=== PATIENT | male | born 1960 | race Two or more races ===

== ENCOUNTER 2019-09-08 19:12 | Inpatient (IN) | payer MEDICAID ==
[~2019-09-08] VITALS: Ht 172.7 cm; Wt 68.0 kg
[2019-09-08 19:15] VITALS: BP 144/86
--- NOTE | 2019-09-08 19:26 | Emergency Room Report ---
History of Present Illness General Chief Complaint: Generalized Weakness Source: Patient, EMS Present Illness HPI Patient is a 59-year-old male brought in by EMS after increased difficulty with balance as well as increased confusion. Patient a prior history of cirrhosis. He had reportedly been taking lactulose. Also had prior history of diabetes as well as liver cancer. He states he has not been having bowel movement today. Reports having some bilateral abdominal pain. Previous reportedly had positive coronavirus infection approximately 1 month ago. 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 COVID-19 Screening: Positive COVID-19 COVID-19 Testing Source: NET MAKER Patient History Reviewed Nursing Documentation: PMH: Agreed; PSxH: Agreed Review of Systems All Other Systems: negative except mentioned in HPI Physical Exam Vital Signs Date Time Temp Pulse Resp B/P (MAP) Pulse Ox O2 Delivery O2 Flow Rate FiO2 09/08/19 19:04 98.1 65 19 144/86 (105) 98 Room Air Sp02 EP Interpretation: reviewed, normal General Appearance: normal inspection, well appearing, no apparent distress, alert, GCS 15, Chronically Ill Head: atraumatic ENT: normal ENT inspection, hearing grossly normal, normal voice Neck: normal inspection, full range of motion, supple, no bony tend Respiratory: normal inspection, lungs clear, normal breath sounds, no respiratory distress, no retraction, no wheezing Cardiovascular #1: regular rate, rhythm, no edema Gastrointestinal: normal inspection, normal bowel sounds, non tender, soft, no guarding, no hernia Genitourinary: no CVA tenderness Musculoskeletal: normal inspection, back normal, normal range of motion Neurologic: alert, oriented x3, responsive, speech normal, normal inspection Psychiatric: normal inspection, judgement/insight normal, mood/affect normal Medical Decision Making Diagnostic Impression: Primary Impression: Hepatic encephalopathy Additional Impression: Hyperglycemia ER Course Presented for altered mental status. Differential diagnosis include was not limited to hepatic encephalopathy, CVA, urinary tract infection, intracranial hemorrhage among others. Because of complexity of patient's case laboratory tests and imaging studies were ordered. Patient was noted to have recent fall and had prior history of hepatic encephalopathy. CT imaging of the head read by radiology showed no evidence of acute intracranial hemorrhage. Per patient' s patient was more confused than baseline. He reportedly had been compliant with his lactulose. Laboratory testing did show some market elevation of the patient's ammonia.Dr. Gordo Mcduffie was contacted for inpatient management due to panel physician. Laboratory Tests Test 09/08/19 19:30 White Blood Count 6.5 K/UL (4.8-10.8) Red Blood Count 4.09 M/UL (4.70-6.10) L Hemoglobin 11.8 G/DL (14.2-18.0) L Hematocrit 36.7 % (42.0-52.0) L Mean Corpuscular Volume 90 FL (80-99) Mean Corpuscular Hemoglobin 28.7 PG (27.0-31.0) Mean Corpuscular Hemoglobin Concent 32.1 G/DL (32.0-36.0) Red Cell Distribution Width 14.2 % (11.6-14.8) Platelet Count 93 K/UL (150-450) L Mean Platelet Volume 11.4 FL (6.5-10.1) H Neutrophils (%) (Auto) % (45.0-75.0) Lymphocytes (%) (Auto) % (20.0-45.0) Monocytes (%) (Auto) % (1.0-10.0) Eosinophils (%) (Auto) % (0.0-3.0) Basophils (%) (Auto) % (0.0-2.0) Differential Total Cells Counted 100 Neutrophils % (Manual) 87 % (45-75) H Lymphocytes % (Manual) 8 % (20-45) L Monocytes % (Manual) 4 % (1-10) Eosinophils % (Manual) 0 % (0-3) Basophils % (Manual) 0 % (0-2) Band Neutrophils 1 % (0-8) Platelet Estimate Decreased L Platelet Morphology Normal Red Blood Cell Morphology Normal Prothrombin Time 13.3 SEC (9.30-11.50) H Prothrombin Time INR 1.2 (0.9-1.1) H Activated Partial Thromboplast Time 26 SEC (23-33) Urine Color Pale yellow Urine Appearance Clear Urine pH 6.5 (4.5-8.0) Urine Specific [place] 1.010 (1.005-1.035) Urine Protein Negative (NEGATIVE) Urine Glucose (UA) 4+ (NEGATIVE) H Urine Ketones Negative (NEGATIVE) Urine Blood Negative (NEGATIVE) Urine Nitrite Negative (NEGATIVE) Urine Bilirubin Negative (NEGATIVE) Urine Urobilinogen Normal MG/DL (0.0-1.0) Urine Leukocyte Esterase 2+ (NEGATIVE) H Urine RBC 0 /HPF (0 - 0) Urine WBC 5-10 /HPF (0 - 0) H Urine Squamous Epithelial Cells Occasional /LPF Urine Bacteria None /HPF (NONE) Sodium Level 131 MMOL/L (136-145) L Potassium Level 5.1 MMOL/L (3.5-5.1) Chloride Level 97 MMOL/L (98-107) L Carbon Dioxide Level 27 MMOL/L (21-32) Anion Gap 7 mmol/L (5-15) Blood Urea Nitrogen 39 mg/dL (7-18) H Creatinine 2.4 MG/DL (0.55-1.30) H Estimated Glomerular Filtration Rate 28.0 mL/min (>60) Glucose Level 518 MG/DL (74-106) *H Calcium Level 8.9 MG/DL (8.5-10.1) Total Bilirubin 1.1 MG/DL (0.2-1.0) H Direct Bilirubin 0.6 MG/DL (0.0-0.3) H Aspartate Amino Transferase (AST) 47 U/L (15-37) H Alanine Aminotransferase (ALT) 65 U/L (12-78) Alkaline Phosphatase 335 U/L (46-116) H Ammonia 125 umol/L (11-32) H Troponin I 0.002 ng/mL (0.000-0.056) Total Protein 7.9 G/DL (6.4-8.2) Albumin 3.0 G/DL (3.4-5.0) L Globulin 4.9 g/dL Albumin/Globulin Ratio 0.6 (1.0-2.7) L Thyroid Stimulating Hormone (TSH) 1.235 uiU/mL (0.358-3.740) Last Vital Signs Date Time Temp Pulse Resp B/P (MAP) Pulse Ox O2 Delivery O2 Flow Rate FiO2 09/08/19 19:04 98.1 65 19 144/86 (105) 98 Room Air Status: improved Disposition: ADMITTED INPATIENT Condition: Stable Aiden Shaver MD September 08, 2019 19:26
[2019-09-08 19:57] LABS: HEMATOCRIT 36.7 % (42.0-52.0); HEMOGLOBIN 11.8 G/DL (14.2-18.0); MEAN CORPUSCULAR VOLUME 90 FL (80-99); PLATELET COUNT 93 K/UL (150-450); RED BLOOD COUNT 4.09 M/UL (4.70-6.10); RED CELL DISTRIBUTION WIDTH 14.2 % (11.6-14.8); WHITE BLOOD COUNT 6.5 K/UL (4.8-10.8)
[2019-09-08 19:59] LABS: APPEARANCE,URINE CLEAR; BILIRUBIN, URINE NEGATIVE (NEGATIVE); COLOR,URINE PALE YELLOW; GLUCOSE, URINE (UA) 4+ (NEGATIVE); KETONES,URINE NEGATIVE (NEGATIVE); LEUKOCYTE ESTERASE ,URINE 2+ (NEGATIVE); NITRITE,URINE NEGATIVE (NEGATIVE); PH,URINE 6.5 (4.5-8.0); PROTEIN,URINE NEGATIVE (NEGATIVE); UROBILINOGEN,URINE NORMAL MG/DL (0.0-1.0)
--- NOTE | 2019-09-08 20:01 | Diagnostic Imaging Report ---
EXAM: XR Chest, 1 View CLINICAL HISTORY: SOB TECHNIQUE: Frontal view of the chest. COMPARISON: No relevant prior studies available. FINDINGS: Lungs: Unremarkable. No consolidation. Pleural space: Unremarkable. No pneumothorax. Heart: Unremarkable. No cardiomegaly. Mediastinum: Unremarkable. Bones/joints: Unremarkable. IMPRESSION: 1. No acute cardiopulmonary disease. 2. If there is continued concern recommend frontal and lateral chest radiographs or CT.
[2019-09-08 20:11] LABS: INR 1.2 (0.9-1.1)
--- NOTE | 2019-09-08 20:24 | Diagnostic Imaging Report ---
EXAM: CT Head Without Intravenous Contrast CLINICAL HISTORY: DIZZY TECHNIQUE: Axial computed tomography images of the head/brain without intravenous contrast. CTDI is 53 mGy and DLP is 992 mGy-cm. One or more of the following dose reduction techniques were used: automated exposure control, adjustment of the mA and/or kV according to patient size, use of iterative reconstruction technique. COMPARISON: No relevant prior studies available. FINDINGS: Brain: Small area of right temporal lobe probable encephalomalacia 2.5 x 2.4 x 1.3 cm, if there is not a known history of right temporal lobe prior infarcts recommend MRI brain without and with IV contrast to further characterize this finding. Mild cerebrovascular ASVD. No hemorrhage. Ventricles: Unremarkable. No ventriculomegaly. Bones/joints: See below. Soft tissues: Unremarkable. Vasculature: Mild cerebrovascular atherosclerosis. Sinuses: Left maxillary sinus probable mass demonstrating focal hyperdense portion potentially representing an osseous excrescence with complete opacification, bony sclerosis and thickening, area of incompletely seen left posterolateral bony breakthrough axial series 7 image 1. Widening of the ostiomeatal unit. Mastoid air cells: Unremarkable as visualized. No mastoid effusion. IMPRESSION: 1. No acute intracranial abnormality. 2. Small area of right temporal lobe probable encephalomalacia 2.5 x 2.4 x 1.3 cm, if there is not a known history of right temporal lobe prior infarcts recommend MRI brain without and with IV contrast to further characterize this finding. 3. Left maxillary sinus likely mass which could represent a benign process such as inverting papilloma, although neoplasm is not excluded. 4. Recommend ENT consultation and consider dedicated sinus CT to further characterize these findings.
[2019-09-08 20:25] LABS: ALANINE AMINOTRANSFERASE 65 U/L (12-78); ALBUMIN/GLOBULIN RATIO 0.6 (1.0-2.7); ALKALINE PHOSPHATASE 335 U/L (46-116); ANION GAP 7 mmol/L (5-15); ASPARTATE AMINO TRANSFERASE 47 U/L (15-37); BILIRUBIN,TOTAL 1.1 MG/DL (0.2-1.0); BLOOD UREA NITROGEN 39 mg/dL (7-18); CALCIUM 8.9 MG/DL (8.5-10.1); CARBON DIOXIDE 27 MMOL/L (21-32); CHLORIDE 97 MMOL/L (98-107); CREATININE 2.4 MG/DL (0.55-1.30); POTASSIUM 5.1 MMOL/L (3.5-5.1); SODIUM 131 MMOL/L (136-145)
[2019-09-08] MEDS ORDERED: Insulin Human Regular 100units/ml 3ml SUBQ ONE (20:30)
[2019-09-08 20:34] LABS: BILIRUBIN,DIRECT 0.6 MG/DL (0.0-0.3)
[2019-09-08] MEDS ORDERED: Lactulose 20gm/30ml UDC ORAL ONE (21:00)
[2019-09-08] MEDS ORDERED: FLOMAX0.4 MG ORAL (21:20)
[2019-09-08] MEDS ORDERED: PANTOPRAZOLE SO40 MG ORAL (21:20)
[2019-09-08] MEDS ORDERED: FUROSEMIDE20 M1 ORAL (21:20)
[2019-09-08] MEDS ORDERED: XIFAXAN550 MG ORAL (21:20)
[2019-09-08] MEDS ORDERED: SPIRONOLACTONE25 MG ORAL (21:20)
[2019-09-08] MEDS ORDERED: NEXAVAR200 MG ORAL (21:20)
[2019-09-08] MEDS ORDERED: TRAZODONE HCL150 MG ORAL (21:20)
[2019-09-08] MEDS: Lactulose 20gm/30ml UDC ORAL SCH (23:46)
[2019-09-09] VITALS: BP 132/77
[2019-09-09 04:00] VITALS: BP 123/77
[2019-09-09] MEDS: NovoLOG Insulin Flexpen SUBQ SCH ×4 (06:18→21:13)
[2019-09-09 08:00] VITALS: BP 106/67
--- NOTE | 2019-09-09 08:30 | History and Physical Report ---
DATE OF ADMISSION: 09/08/2019 CHIEF COMPLAINT: Hepatic encephalopathy. HISTORY OF PRESENT ILLNESS: The patient is a 59-year-old male. He has a history of cirrhosis and diabetes as well as liver cancer, who presented with complaints of generalized malaise and weakness. He apparently was COVID positive approximately a month ago, but has otherwise been asymptomatic. Denies any fevers, chills, or cough. He has been on lactulose for hepatic encephalopathy. He has been compliant with medications. On evaluation in the emergency room, vital signs were stable. His ammonia level is 125. His blood glucose is 518. He is now admitted for further evaluation and care. PAST MEDICAL HISTORY: As above. PAST SURGICAL HISTORY: Includes back surgery. CURRENT MEDICATIONS: Reconciled and reviewed. ALLERGIES: None. FAMILY HISTORY: None. SOCIAL HISTORY: Negative for tobacco, ethanol, or drugs. REVIEW OF SYSTEMS: Negative except for malaise. PHYSICAL EXAMINATION: VITAL SIGNS: Temperature 98 degrees, pulse 67, respirations 18, and blood pressure . GENERAL: The patient well-developed, no apparent distress. HEART: Regular. LUNGS: Clear. ABDOMEN: Soft, nontender, nondistended. There is no ascites noted. The patient is obese. EXTREMITIES: Without clubbing or cyanosis. LABORATORY DATA: Sodium 131, potassium 5.1, BUN 39, creatinine 2.4, glucose 518. Total bilirubin of 1.1. Ammonia 125. UA showed 5 to 10 wbc's. ASSESSMENT: This is a 59-year-old male, admitted with complaints of altered mental status, generalized malaise and weakness secondary to acute renal failure as well as hepatic encephalopathy. PLAN: IV hydration. Lactulose three times a day. Monitor ammonia level. Monitor renal function. PT/OT evaluations will be obtained. Gordo Mcduffie M.D. DR: JORDAN JOB#: [id number] CC:
[2019-09-09] MEDS: Lactulose 20gm/30ml UDC ORAL SCH ×3 (08:37→17:04)
[2019-09-09] MEDS: Spironolactone 25mg tab ORAL SCH (08:37)
[2019-09-09] MEDS: NEXAVAR 200 MG ORAL SCH ×2 (08:39→17:04)
[2019-09-09] MEDS ORDERED: Pantoprazole Inj IVP SCH (09:00)
[2019-09-09] MEDS ORDERED: Tamsulosin 0.4mg cap ORAL SCH ×2 (09:00→11:45)
--- NOTE | 2019-09-09 11:43 | Consultation ---
Consult Note Consult Note Asked to evaluate at the request of Dr. Mcduffie for renal failure Patient is a 59-year-old male brought in by EMS after increased difficulty with balance as well as increased confusion. Patient a prior history of cirrhosis. He had reportedly been taking lactulose. Also had prior history of diabetes as well as liver cancer. He states he has not been having bowel movement today. Reports having some bilateral abdominal pain. Previous reportedly had positive coronavirus infection approximately 1 month ago. 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 Assessment/Plan Reviewing the patient medication list he is on Nexavar which is a chemotherapy medication. At this point I am unclear what type of cancer is he being treated for This 59-year-old male is being admitted with encephalopathy(toxic metabolic) and generalized weakness Acute renal failure with possible underlying chronic kidney disease Hyperglycemia Hyponatremia partly related to hyperglycemia Anemia History of back surgery Suggestions: Urine studies, and urine for tox screen Kidney ultrasound Flomax twice daily Hydration and watch for CHF symptoms Avoid nephrotoxic's Monitor renal parameters Monitor liver function tests and ammonia level Urine for tox screen I spent an additional 35 minutes on review of medical records including prior hospital records ,consult notes ,progress notes ,procedures ,imaging ,labs , hemodynamics ,and other clinical documentations Kali Carrero MD September 09, 2019 11:43
[2019-09-09 12:05] VITALS: BP 118/69
[2019-09-09] MEDS: Docusate 100mg cap ORAL SCH ×2 (12:16→17:04)
[2019-09-09 16:08] VITALS: BP 110/71
[2019-09-09] MEDS: Tamsulosin 0.4mg cap ORAL SCH (17:04)
[2019-09-09] MEDS: Nateglinide 60mg tab ORAL SCH (17:05)
[2019-09-09 20:00] VITALS: BP 139/77
[2019-09-09] MEDS: TraZODone 50mg tab ORAL SCH (21:01)
[2019-09-10] VITALS: BP 134/75
[2019-09-10] MEDS: NovoLOG Insulin Flexpen SUBQ SCH ×6 (01:02→21:02)
[2019-09-10 04:00] VITALS: BP 106/66
[2019-09-10] MEDS: Nateglinide 60mg tab ORAL SCH ×3 (06:10→18:11)
[2019-09-10 06:32] LABS: HEMATOCRIT 30.7 % (42.0-52.0); HEMOGLOBIN 10.8 G/DL (14.2-18.0); MEAN CORPUSCULAR VOLUME 84 FL (80-99); PLATELET COUNT 85 K/UL (150-450); RED BLOOD COUNT 3.66 M/UL (4.70-6.10); RED CELL DISTRIBUTION WIDTH 12.5 % (11.6-14.8); WHITE BLOOD COUNT 5.2 K/UL (4.8-10.8)
[2019-09-10 07:11] LABS: AMMONIA 69 umol/L (11-32)
[2019-09-10 07:18] LABS: % IRON SATURATION 18 % (15-50); IRON 54 ug/dL (50-175); TOTAL IRON BINDING CAPACITY 297 ug/dL (250-450)
[2019-09-10 07:22] LABS: ALANINE AMINOTRANSFERASE 43 U/L (12-78); ALBUMIN 2.6 G/DL (3.4-5.0); ALBUMIN/GLOBULIN RATIO 0.6 (1.0-2.7); ALKALINE PHOSPHATASE 269 U/L (46-116); ANION GAP 9 mmol/L (5-15); ASPARTATE AMINO TRANSFERASE 34 U/L (15-37); BLOOD UREA NITROGEN 21 mg/dL (7-18); CALCIUM 8.2 MG/DL (8.5-10.1); CARBON DIOXIDE 23 MMOL/L (21-32); CHLORIDE 105 MMOL/L (98-107); CHOLESTEROL 133 MG/DL (< 200); CREATININE 1.7 MG/DL (0.55-1.30); FERRITIN 32 NG/ML (8-388); GAMMA GLUTAMYL TRANSPEPTIDASE 883 U/L (5-85); HDL CHOLESTEROL 20 MG/DL (40-60); PHOSPHORUS 2.8 MG/DL (2.5-4.9); POTASSIUM 4.5 MMOL/L (3.5-5.1); SODIUM 137 MMOL/L (136-145); TRIGLYCERIDES 301 MG/DL (30-150)
[2019-09-10 08:00] VITALS: BP 106/75
--- NOTE | 2019-09-10 08:19 | General Progress Note ---
Assessment/Plan Problem List: (1) Hepatic encephalopathy ICD Codes: K72.90 - Hepatic failure, unspecified without coma SNOMED: 04080978 (2) Hyperglycemia ICD Codes: R73.9 - Hyperglycemia, unspecified SNOMED: 99795335 Status: stable Assessment/Plan: cont current resume diabetes rx- pt doesnt remember lactulose dc planning tomorrow Subjective ROS Limited/Unobtainable: No Constitutional: Reports: weakness HEENT: Reports: no symptoms Cardiovascular: Reports: no symptoms Respiratory: Reports: no symptoms Gastrointestinal/Abdominal: Reports: no symptoms Genitourinary: Reports: no symptoms Neurologic/Psychiatric: Reports: no symptoms Endocrine: Reports: no symptoms Hematologic/Lymphatic: Reports: no symptoms Allergies: Coded Allergies: No Known Allergies (Unverified , 09/08/19) All Systems: reviewed and negative except above Subjective feel better. ammonia trending down. on lactulose. no cp/sob Objective Last 24 Hour Vital Signs Date Time Temp Pulse Resp B/P (MAP) Pulse Ox O2 Delivery O2 Flow Rate FiO2 09/10/19 04:00 98.1 73 22 106/66 (79) 98 09/10/19 00:00 99.0 80 22 134/75 (94) 97 09/09/19 21:00 Room Air 09/09/19 20:00 98.6 80 19 139/77 (97) 97 09/09/19 16:08 98.1 73 19 110/71 (84) 98 09/09/19 12:05 98.4 79 18 118/69 (85) 97 09/09/19 09:00 Room Air Intake and Output 09/09/19 09/10/19 19:00 07:00 Intake Total 2425 ml 1200 ml Output Total 500 ml Balance 2425 ml 700 ml Intake IV Total 825 ml 450 ml Other 1600 ml 750 ml Output Urine Total 500 ml # Voids 2 # Bowel Movements 1 Laboratory Tests 09/09/19 23:15: Urine Opiates Screen Negative, Urine Barbiturates Screen Negative, Phencyclidine (PCP) Screen Negative, Urine Amphetamines Screen Negative, Urine Benzodiazepines Screen Negative, Urine Cocaine Screen Negative, Urine Marijuana (THC) Screen Negative 09/10/19 05:20: White Blood Count 5.2, Red Blood Count 3.66L, Hemoglobin 10.8L, Hematocrit 30.7L , Mean Corpuscular Volume 84, Mean Corpuscular Hemoglobin 29.3, Mean Corpuscular Hemoglobin Concent 35.0, Red Cell Distribution Width 12.5, Platelet Count 85L, Mean Platelet Volume 8.9, Neutrophils (%) (Auto) , Lymphocytes (%) ( Auto) , Monocytes (%) (Auto) , Eosinophils (%) (Auto) , Basophils (%) (Auto) , Neutrophils % (Manual) [Pending], Lymphocytes % (Manual) [Pending], Platelet Estimate [Pending], Platelet Morphology [Pending], Sodium Level 137, Potassium Level 4.5, Chloride Level 105, Carbon Dioxide Level 23, Anion Gap 9, Blood Urea Nitrogen 21H, Creatinine 1.7H, Estimat Glomerular Filtration Rate 41.8, Glucose Level 239#H, Hemoglobin A1c 13.5H, Lactic Acid Level [Pending], Uric Acid 7.0, Calcium Level 8.2L, Phosphorus Level 2.8, Magnesium Level 1.5L, Iron Level 54, Total Iron Binding Capacity 297, Percent Iron Saturation 18, Unsaturated Iron Binding 243, Ferritin 32, Total Bilirubin 1.0, Gamma Glutamyl Transpeptidase 883H, Aspartate Amino Transf (AST/SGOT) 34, Alanine Aminotransferase (ALT/SGPT) 43, Alkaline Phosphatase 269H, Ammonia 69H, Troponin I 0.005, C-Reactive Protein , Quantitative 0.9, Pro-B-Type Natriuretic Peptide 542H, Total Protein 6.9, Albumin 2.6L, Globulin 4.3, Albumin/Globulin Ratio 0.6L, Triglycerides Level 301H, Cholesterol Level 133, LDL Cholesterol 59, HDL Cholesterol 20L, Cholesterol/HDL Ratio 6.7H, Lipase 145, Vitamin B12 Level 1063H, Folate 18.1, Thyroid Stimulating Hormone (TSH) 1.218 Height (Feet): 5 Height (Inches): 8.00 Weight (Pounds): 150 General Appearance: WD/WN, no apparent distress Neck: supple Cardiovascular: normal rate Respiratory/Chest: lungs clear Abdomen: normal bowel sounds, non tender, soft, no organomegaly Edema: no edema noted Arm (L), no edema noted Arm (R), no edema noted Leg (L), no edema noted Leg (R), no edema noted Pedal (L), no edema noted Pedal (R), no edema noted Generalized Gordo Mcduffie MD September 10, 2019 08:19
[2019-09-10] MEDS: NEXAVAR 200 MG ORAL SCH ×2 (09:51→18:28)
[2019-09-10] MEDS: Lactulose 20gm/30ml UDC ORAL SCH ×3 (09:52→18:11)
[2019-09-10] MEDS: Tamsulosin 0.4mg cap ORAL SCH ×2 (09:53→18:11)
[2019-09-10] MEDS: Docusate 100mg cap ORAL SCH ×3 (09:53→18:11)
[2019-09-10] MEDS: Spironolactone 25mg tab ORAL SCH (09:53)
[2019-09-10] MEDS: Levemir Flexpen SUBQ SCH ×2 (10:07→21:01)
--- NOTE | 2019-09-10 11:33 | Nephrology Progress Note ---
Assessment/Plan Problem List: (1) Renal failure (ARF), acute on chronic (2) Hepatic encephalopathy (3) Hyperglycemia Assessment: Hemoglobin A1c over 13 (4) Electrolyte imbalance (5) Anemia Assessment This 59-year-old male is being admitted with encephalopathy(toxic metabolic) and generalized weakness Acute renal failure with possible underlying chronic kidney disease Hyperglycemia Hyponatremia partly related to hyperglycemia Anemia History of back surgery Reviewing the patient medication list he is on Nexavar which is a chemotherapy medication. At this point I am unclear what type of cancer is he being treated for Plan Urine studies, Starlix for blood sugar control in addition to insulin urine for tox screen is negative Kidney ultrasound pending Flomax twice daily Hydration and watch for CHF symptoms Avoid nephrotoxic's Monitor renal parameters Monitor liver function tests and ammonia level Urine for tox screen Subjective ROS Limited/Unobtainable: No Constitutional: Reports: malaise, other - More responsive Objective Objective Last 24 Hour Vital Signs Date Time Temp Pulse Resp B/P (MAP) Pulse Ox O2 Delivery O2 Flow Rate FiO2 09/10/19 08:00 98.6 74 18 106/75 (85) 96 09/10/19 04:00 98.1 73 22 106/66 (79) 98 09/10/19 00:00 99.0 80 22 134/75 (94) 97 09/09/19 21:00 Room Air 09/09/19 20:00 98.6 80 19 139/77 (97) 97 09/09/19 16:08 98.1 73 19 110/71 (84) 98 09/09/19 12:05 98.4 79 18 118/69 (85) 97 Intake and Output 09/09/19 09/10/19 19:00 07:00 Intake Total 2425 ml 1200 ml Output Total 500 ml Balance 2425 ml 700 ml Intake IV Total 825 ml 450 ml Other 1600 ml 750 ml Output Urine Total 500 ml # Voids 2 # Bowel Movements 1 Laboratory Tests 09/09/19 23:15: Urine Opiates Screen Negative, Urine Barbiturates Screen Negative, Phencyclidine (PCP) Screen Negative, Urine Amphetamines Screen Negative, Urine Benzodiazepines Screen Negative, Urine Cocaine Screen Negative, Urine Marijuana (THC) Screen Negative 09/10/19 05:20: White Blood Count 5.2, Red Blood Count 3.66L, Hemoglobin 10.8L, Hematocrit 30.7L , Mean Corpuscular Volume 84, Mean Corpuscular Hemoglobin 29.3, Mean Corpuscular Hemoglobin Concent 35.0, Red Cell Distribution Width 12.5, Platelet Count 85L, Mean Platelet Volume 8.9, Neutrophils (%) (Auto) , Lymphocytes (%) ( Auto) , Monocytes (%) (Auto) , Eosinophils (%) (Auto) , Basophils (%) (Auto) , Differential Total Cells Counted 100, Neutrophils % (Manual) 77H, Lymphocytes % (Manual) 14L, Monocytes % (Manual) 6, Eosinophils % (Manual) 3, Basophils % ( Manual) 0, Band Neutrophils 0, Platelet Estimate DecreasedL, Platelet Morphology Normal, Hypochromasia 1+, Sodium Level 137, Potassium Level 4.5, Chloride Level 105, Carbon Dioxide Level 23, Anion Gap 9, Blood Urea Nitrogen 21H, Creatinine 1.7H, Estimat Glomerular Filtration Rate 41.8, Glucose Level 239 #H, Hemoglobin A1c 13.5H, Lactic Acid Level 1.30, Uric Acid 7.0, Calcium Level 8.2L, Phosphorus Level 2.8, Magnesium Level 1.5L, Iron Level 54, Total Iron Binding Capacity 297, Percent Iron Saturation 18, Unsaturated Iron Binding 243, Ferritin 32, Total Bilirubin 1.0, Gamma Glutamyl Transpeptidase 883H, Aspartate Amino Transf (AST/SGOT) 34, Alanine Aminotransferase (ALT/SGPT) 43, Alkaline Phosphatase 269H, Ammonia 69H, Troponin I 0.005, C-Reactive Protein, Quantitative 0.9, Pro-B-Type Natriuretic Peptide 542H, Total Protein 6.9, Albumin 2.6L, Globulin 4.3, Albumin/Globulin Ratio 0.6L, Triglycerides Level 301H, Cholesterol Level 133, LDL Cholesterol 59, HDL Cholesterol 20L, Cholesterol/HDL Ratio 6.7H, Lipase 145, Vitamin B12 Level 1063H, Folate 18.1, Thyroid Stimulating Hormone (TSH) 1.218 Height (Feet): 5 Height (Inches): 8.00 Weight (Pounds): 150 Cardiovascular: normal rate - At times rate over 80 Respiratory/Chest: decreased breath sounds Abdomen: distended Kali Carrero MD September 10, 2019 11:33
[2019-09-10 12:00] VITALS: BP 110/75
--- NOTE | 2019-09-10 12:15 | Diagnostic Imaging Report ---
EXAM: US Retroperitoneal Complete, Renal CLINICAL HISTORY: RENAL-A TECHNIQUE: Real-time complete ultrasound of the retroperitoneum with image documentation. COMPARISON: None FINDINGS: Right kidney: Right kidney measures 10.5 cm in length. No hydronephrosis or stone. Left kidney: Left kidney measures 11.1 cm in length. No hydronephrosis or stone. Bladder: Visualized portions of the bladder are unremarkable. Free fluid: Incidental note made of trace free fluid in the upper abdomen. IMPRESSION: Incidental note made of trace free fluid in the upper abdomen. No hydronephrosis or stone.
[2019-09-10 16:00] VITALS: BP 118/73
[2019-09-10 20:00] VITALS: BP 127/79
[2019-09-10] MEDS: TraZODone 50mg tab ORAL SCH (20:58)
[2019-09-11] VITALS: BP 128/74
[2019-09-11 04:00] VITALS: BP 139/74
[2019-09-11] MEDS: Nateglinide 60mg tab ORAL SCH ×2 (06:09→12:31)
[2019-09-11] MEDS: NovoLOG Insulin Flexpen SUBQ SCH ×2 (06:10→12:37)
[2019-09-11 08:00] VITALS: BP 132/81
[2019-09-11] MEDS ORDERED: FUROSEMIDE40 MG ORAL (08:37)
[2019-09-11] MEDS ORDERED: LEVEMIR FL100 UNIT/1 SUBQ (08:37)
--- NOTE | 2019-09-11 08:39 | General Progress Note ---
Assessment/Plan Problem List: (1) Hepatic encephalopathy ICD Codes: K72.90 - Hepatic failure, unspecified without coma SNOMED: [id number] (2) Hyperglycemia ICD Codes: R73.9 - Hyperglycemia, unspecified SNOMED: [id number] Status: stable Assessment/Plan: dc home follow up with pmd later this week Subjective ROS Limited/Unobtainable: No Constitutional: Reports: malaise, weakness HEENT: Reports: no symptoms Cardiovascular: Reports: no symptoms Respiratory: Reports: no symptoms Gastrointestinal/Abdominal: Reports: no symptoms Genitourinary: Reports: no symptoms Neurologic/Psychiatric: Reports: no symptoms Endocrine: Reports: no symptoms Hematologic/Lymphatic: Reports: no symptoms Allergies: Coded Allergies: No Known Allergies (Unverified , 09/08/19) All Systems: reviewed and negative except above Subjective feels "better." no cp/sob. wants to go home. ammonia level still high but better than on admission. Objective Last 24 Hour Vital Signs Date Time Temp Pulse Resp B/P (MAP) Pulse Ox O2 Delivery O2 Flow Rate FiO2 09/11/19 04:00 98.7 74 18 139/74 (95) 98 09/11/19 00:00 98.3 87 18 128/74 (92) 98 09/10/19 22:16 Room Air 09/10/19 20:00 98.7 74 18 127/79 (95) 98 09/10/19 16:00 98.4 81 17 118/73 (88) 97 09/10/19 12:00 97.6 81 18 110/75 (87) 97 09/10/19 09:00 Room Air Intake and Output 09/10/19 09/11/19 18:59 06:59 Intake Total 650 ml Balance 650 ml Intake IV Total 650 ml Laboratory Tests 09/11/19 05:12: Ammonia 76H Height (Feet): 5 Height (Inches): 8.00 Weight (Pounds): 150 General Appearance: no apparent distress, alert Cardiovascular: regular rhythm Respiratory/Chest: normal breath sounds Abdomen: normal bowel sounds, non tender, soft, no organomegaly Edema: no edema noted Arm (L), no edema noted Arm (R), no edema noted Leg (L), no edema noted Leg (R), no edema noted Pedal (L), no edema noted Pedal (R), no edema noted Generalized [place],Gordo M. MD September 11, 2019 08:39
[2019-09-11] MEDS: Docusate 100mg cap ORAL SCH ×2 (09:27→12:31)
[2019-09-11] MEDS: Lactulose 20gm/30ml UDC ORAL SCH ×2 (09:27→12:32)
[2019-09-11] MEDS: NEXAVAR 200 MG ORAL SCH (09:27)
[2019-09-11] MEDS: Tamsulosin 0.4mg cap ORAL SCH (09:28)
[2019-09-11] MEDS: Spironolactone 25mg tab ORAL SCH (09:28)
[2019-09-11] MEDS: Levemir Flexpen SUBQ SCH (09:33)
[2019-09-11 12:00] VITALS: BP 129/80
--- NOTE | 2019-09-11 12:25 | Nephrology Progress Note ---
Assessment/Plan Problem List: (1) Renal failure (ARF), acute on chronic (2) Hepatic encephalopathy (3) Hyperglycemia Assessment: Hemoglobin A1c over 13 (4) Electrolyte imbalance (5) Anemia Assessment This 59-year-old male is being admitted with encephalopathy(toxic metabolic) and generalized weakness Acute renal failure with possible underlying chronic kidney disease Hyperglycemia Hyponatremia partly related to hyperglycemia Anemia History of back surgery Reviewing the patient medication list he is on Nexavar which is a chemotherapy medication. At this point I am unclear what type of cancer is he being treated for Plan Check labs tomorrow Urine studies, Starlix for blood sugar control in addition to insulin urine for tox screen is negative Kidney ultrasound pending Flomax twice daily Hydration and watch for CHF symptoms Avoid nephrotoxic's Monitor renal parameters Monitor liver function tests and ammonia level Urine for tox screen Subjective ROS Limited/Unobtainable: No Constitutional: Reports: malaise Objective Objective Last 24 Hour Vital Signs Date Time Temp Pulse Resp B/P (MAP) Pulse Ox O2 Delivery O2 Flow Rate FiO2 09/11/19 12:00 98.1 81 18 129/80 (96) 96 09/11/19 09:00 Room Air 09/11/19 08:00 97.9 80 18 132/81 (98) 97 09/11/19 04:00 98.7 74 18 139/74 (95) 98 09/11/19 00:00 98.3 87 18 128/74 (92) 98 09/10/19 22:16 Room Air 09/10/19 20:00 98.7 74 18 127/79 (95) 98 09/10/19 16:00 98.4 81 17 118/73 (88) 97 Intake and Output 09/10/19 09/11/19 19:00 07:00 Intake Total 650 ml Balance 650 ml Intake IV Total 650 ml Laboratory Tests 09/11/19 05:12: Ammonia 76H No chemistry labs drawn today Height (Feet): 5 Height (Inches): 8.00 Weight (Pounds): 150 General Appearance: no apparent distress Cardiovascular: normal rate Respiratory/Chest: decreased breath sounds Abdomen: distended Kali Carrero MD September 11, 2019 12:25
--- NOTE | 2019-09-12 11:05 | Discharge Summary ---
Discharge Summary Discharge Summary _ DATE OF ADMISSION: 09/08/2019 DATE OF DISCHARGE: 09/11/2019 DISCHARGED BY: Dr. Mcduffie REASON FOR ADMISSION: 59 years old male with past medical history of liver cirrhosis, liver cancer, diabetes mellitus, presented to emergency department with generalized malaise and weakness. He reported being COVID positive approximately a month ago, but otherwise was asymptomatic. He denied fever and chills. He denied cough. Patient had been on lactulose for hepatic encephalopathy. Patient reported being compliant with his medication. Upon evaluation vital signs were stable. Ammonia level 125 . Blood sugar 518. No leukocytosis ,hemoglobin 11.8 ,hematocrit 26.7 ,platelet count 93. INR 1.2. Urinalysis revealed +4 glucose, +2 leukocyte esterase, pyuria and no bacteria. Sodium 131, potassium 5.1. BUN 39, creatinine 2.4. Glucose 518. Anion gap 7. AST 47, ALT 65. Troponin negative . CT of the head revealed no acute intracranial abnormality. Mild area of right temporal lobe probable encephalomalacia. Chest x-ray demonstrated no acute cardiopulmonary disease. In emergency department patient received one liter of IV fluids, lactulose, insulin and admitted to medical surgical floor for further management. CONSULTANTS: hearing impaired teacher Dr. Carrero [facility] COURSE: Patient admitted to medical surgical floor. Patient started on the IV hydration . Human Resources Temp followed . Patient was on lactulose and Rifaximin. Ammonia trended down to 76 prior to discharge. LFT stable. GI prophylaxis provided, Patient was continued on spironolactone. Hemoglobin A1c 13.5 , clearly not at goal. Blood sugar was managed with long acting insulin, Starlix and sliding scale of insulin as needed. Renal ultrasound demonstrated no hydronephrosis. No stones. Urine studies were done. After IV hydration BUN down to 21 and creatinine down to 1.7. Initial hyponatremia with sodium 131 was likely related to hyperglycemia and resolved as blood sugar improved. Patient was continued on Flomax. Nephrotoxic's were avoided. Urine toxicology screen was negative. According to hearing impaired teacher , patient had acute renal failure with underlying chronic kidney disease. Hemoglobin and hematocrit were closely monitored with goal to keep hemoglobin above 7 ; prior to discharge hemoglobin 10.8 , hematocrit 30.7 . Platelet count 85 upon discharge . Thrombocytopenia and anemia were likely related to liver disease. Patient clinically stabilized and was ready for discharge home FINAL DIAGNOSES: Renal failure acute on chronic Hepatic encephalopathy Hyperglycemia Diabetes mellitus [id number] Electrolyte imbalance Anemia DISCHARGE MEDICATIONS: See Medication Reconciliation list. DISCHARGE INSTRUCTIONS: Patient was discharged home. Follow-up with a primary care provider in 1 week. I have been assigned to dictate discharge summary for this account. I was not involved in the patient's management. Aliya Squires NP September 12, 2019 11:05
== END 2019-09-11 13:14 | disposition home or self-care (01) | DRG 279 ==
LOC: EDBD 19:12 → EMR 19:45 → 4E 20:59 → EDBEDREQ 21:02 → 4E 22:27
DX: K72.90 Hepatic failure, unspecified without coma (principal); N17.9 Acute kidney failure, unspecified; E11.65 Type 2 diabetes mellitus with hyperglycemia; E87.1 Hypo-osmolality and hyponatremia; E11.22 Type 2 diabetes mellitus with diabetic chronic kidney disease; N18.9 Chronic kidney disease, unspecified; D64.9 Anemia, unspecified; Z86.19 Personal history of other infectious and parasitic diseases
CPT/HCPCS: 36415; 70450; 71045; 76770; 80053; 80061; 80307; 81001; 82140; 82248; 82607; 82728; 82746; 82962; 82977; 83036; 83540; 83550; 83605; 83690; 83735; 83880; 84100; 84443; 84484; 84550; 85007; 85025; 85610; 85730; 86140; 86850; 86900; 86901; 87635; 93005; 96361; 96374; 99285; J1815; J7030; S5561

== ENCOUNTER 2019-09-30 17:06 | Inpatient (IN) | payer MEDICAID ==
[~2019-09-30] VITALS: Ht 172.7 cm; Wt 76.8 kg
[~2019-09-30 17:06] MED LIST: FLOMAX0.4 MG ORAL; FUROSEMIDE20 M1 ORAL; FUROSEMIDE40 MG ORAL; LEVEMIR FL100 UNIT/1 SUBQ; NEXAVAR200 MG ORAL; PANTOPRAZOLE SO40 MG ORAL; SPIRONOLACTONE25 MG ORAL; TRAZODONE HCL150 MG ORAL; XIFAXAN550 MG ORAL
--- NOTE | 2019-09-30 17:17 | Emergency Room Report ---
History of Present Illness General Chief Complaint: Syncope Source: EMS Present Illness HPI Patient presents after having a syncopal episode. According to the family he has syncopal episodes. They are associated with high blood sugar. He also has a history of liver cancer. Accu-Chek in the field was high. Paramedics state that the family reports that he is more altered. He is able to say his name. An EKG done in the field does not show acute injury. He has had episodes like this in the past. Patient has a history of diabetes. Unable to contact family for further history. Allergies: Coded Allergies: No Known Allergies (Unverified , 09/30/19) COVID-19 Screening Contact w/high risk pt: No Recent Travel to affected area: No Experienced COVID-19 symptoms?: No COVID-19 Testing performed CASINO MANAGER: No Patient History Limited by: medical condition Past Medical History: see triage record Social History: Denies: smoking Social History Narrative Lives at home with family Reviewed Nursing Documentation: PMH: Agreed; PSxH: Agreed Nursing Documentation-PMH Past Medical History: No History, Except For Hx Hypertension: Yes Hx Diabetes: Yes Review of Systems All Other Systems: limited Physical Exam Vital Signs Date Time Temp Pulse Resp B/P (MAP) Pulse Ox O2 Delivery O2 Flow Rate FiO2 09/30/19 17:03 98.1 65 22 146/84 (104) 95 Room Air General Appearance: no apparent distress, non-toxic, other - Slurring words and slow to respond Head: normocephalic, atraumatic Eyes: bilateral eye normal inspection, bilateral eye PERRL, bilateral eye EOMI ENT: moist mucus membranes Neck: full range of motion, supple, no bony tend Respiratory: lungs clear, normal breath sounds Cardiovascular #1: regular rate, rhythm, no edema Cardiovascular #2: 2+ radial (L) Gastrointestinal: non tender, overweight Musculoskeletal: back normal, no calf tenderness, moves extm spontaneously Neurologic: motor strength/tone normal, 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 Differential includes brain bleed, DKA, hyperosmolar coma, dehydration, hepatic encephalopathy, arrhythmia amongst others. Patient evaluated with EKG, CT of the head, chest x-ray and labs. Patient treated with IV hydration and may require insulin. The patient is placed on a security monitor to rule out arrhythmia. EKG NSR, normal EKG. White count normal. Elevated blood glucose without acidosis. Potassium slightly elevated. Abnormal BUN and creatinine. CT with sinus infection (not invasive to bone). Ammonia elevated. BS 434 after bolus. Insulin ordered. Potassium expected to decrease with insulin treatment. BS 337. Continued hydration. Evaluated by Dr. Carrero in ED. 194 - Patient now alert and conversant. Unable to tell if confused as states was admitted here 1 month ago. (Unable to find any record of this.) Laboratory Tests Test 09/30/19 17:13 09/30/19 18:32 White Blood Count 4.8 K/UL (4.8-10.8) Red Blood Count 3.89 M/UL (4.70-6.10) L Hemoglobin 11.6 G/DL (14.2-18.0) L Hematocrit 36.5 % (42.0-52.0) L Mean Corpuscular Volume 94 FL (80-99) Mean Corpuscular Hemoglobin 29.8 PG (27.0-31.0) Mean Corpuscular Hemoglobin Concent 31.7 G/DL (32.0-36.0) L Red Cell Distribution Width 15.3 % (11.6-14.8) H Platelet Count 81 K/UL (150-450) L Mean Platelet Volume 8.7 FL (6.5-10.1) Neutrophils (%) (Auto) 66.9 % (45.0-75.0) Lymphocytes (%) (Auto) 21.7 % (20.0-45.0) Monocytes (%) (Auto) 9.4 % (1.0-10.0) Eosinophils (%) (Auto) 0.9 % (0.0-3.0) Basophils (%) (Auto) 1.1 % (0.0-2.0) Prothrombin Time 13.7 SEC (9.30-11.50) H Prothrombin Time INR 1.3 (0.9-1.1) H Activated Partial Thromboplast Time 27 SEC (23-33) Sodium Level 129 MMOL/L (136-145) L Potassium Level 5.7 MMOL/L (3.5-5.1) H Chloride Level 98 MMOL/L (98-107) Carbon Dioxide Level 22 MMOL/L (21-32) Anion Gap 9 mmol/L (5-15) Blood Urea Nitrogen 44 mg/dL (7-18) H Creatinine 2.3 MG/DL (0.55-1.30) H Estimated Glomerular Filtration Rate 29.5 mL/min (>60) Glucose Level 543 MG/DL (74-106) *H Calcium Level 8.2 MG/DL (8.5-10.1) L Total Bilirubin 1.2 MG/DL (0.2-1.0) H Direct Bilirubin 0.5 MG/DL (0.0-0.3) H Aspartate Amino Transferase (AST) 48 U/L (15-37) H Alanine Aminotransferase (ALT) 51 U/L (12-78) Alkaline Phosphatase 275 U/L (46-116) H Ammonia 94 umol/L (11-32) H Total Creatine Kinase 52 U/L (26-308) Troponin I 0.005 ng/mL (0.000-0.056) Pro-B-Type Natriuretic Peptide 305 pg/mL (0-125) H Total Protein 7.4 G/DL (6.4-8.2) Albumin 2.9 G/DL (3.4-5.0) L Globulin 4.5 g/dL Albumin/Globulin Ratio 0.6 (1.0-2.7) L Lipase 332 U/L (73-393) Serum Alcohol < 3 mg/dL Urine Color Pale yellow Urine Appearance Clear Urine pH 6.5 (4.5-8.0) Urine Specific [place] 1.005 (1.005-1.035) Urine Protein Negative (NEGATIVE) Urine Glucose (UA) 4+ (NEGATIVE) H Urine Ketones Negative (NEGATIVE) Urine Blood Negative (NEGATIVE) Urine Nitrite Negative (NEGATIVE) Urine Bilirubin Negative (NEGATIVE) Urine Urobilinogen 1 MG/DL (0.0-1.0) H Urine Leukocyte Esterase 1+ (NEGATIVE) H Urine RBC 0 /HPF (0 - 0) Urine WBC 5-10 /HPF (0 - 0) H Urine Squamous Epithelial Cells Few /LPF (NONE/OCC) Urine Bacteria Few /HPF (NONE) EKG Diagnostic Results Rate: normal Rhythm: NSR ST Segments: no acute changes Rhythm Strip Diag. Results EP Interpretation: yes Rhythm: NSR, no PVC's, no ectopy Chest X-Ray Diagnostic Results Chest X-Ray Diagnostic Results : Chest X-Ray Ordered: Yes # of Views/Limited/Complete: 1 View Indication: Other EP Interpretation: Yes Interpretation: no consolidation, no effusion, no pneumothorax Impression: No acute disease Electronically Signed by: Electronically signed by Reanto Houston MD CT/MRI/US Diagnostic Results CT/MRI/US Diagnostic Results : Imaging Test Ordered: Head Impression sinus disease Last Vital Signs Date Time Temp Pulse Resp B/P (MAP) Pulse Ox O2 Delivery O2 Flow Rate FiO2 10/01/19 12:00 98.1 87 20 123/63 (83) 98 10/01/19 09:00 Room Air Status: improved Disposition: ADMITTED INPATIENT Condition: Serious Scripts Unable to Obtain Active Prescriptions or Reported Meds Renato Houston MD Sep 30, 2019 17:17
--- NOTE | 2019-09-30 17:21 | NUR ---
ED Nurse Note: Pt BIBA for syncopal episode at home. Pt denies hitting head or falling. Pt BS at accucheck is 472. Pt is set up on monitor. Pt is alert and ox4, amb, weak. Hungarian speaking, understands Arabic. No wounds present.
[2019-09-30 17:25] LABS: HEMATOCRIT 36.5 % (42.0-52.0); HEMOGLOBIN 11.6 G/DL (14.2-18.0); MEAN CORPUSCULAR VOLUME 94 FL (80-99); PLATELET COUNT 81 K/UL (150-450); RED BLOOD COUNT 3.89 M/UL (4.70-6.10); RED CELL DISTRIBUTION WIDTH 15.3 % (11.6-14.8); WHITE BLOOD COUNT 4.8 K/UL (4.8-10.8)
[2019-09-30 17:27] LABS: BASOPHILS % (AUTO) 1.1 % (0.0-2.0); EOSINOPHILS % (AUTO) 0.9 % (0.0-3.0); LYMPHOCYTES % (AUTO) 21.7 % (20.0-45.0); MONOCYTES % (AUTO) 9.4 % (1.0-10.0); NEUTROPHILS % (AUTO) 66.9 % (45.0-75.0)
[2019-09-30 17:36] LABS: INR 1.3 (0.9-1.1)
[2019-09-30 17:40] LABS: AMMONIA 94 umol/L (11-32)
[2019-09-30 17:45] VITALS: BP 129/76
[2019-09-30 17:48] LABS: ALANINE AMINOTRANSFERASE 51 U/L (12-78); ALBUMIN 2.9 G/DL (3.4-5.0); ALBUMIN/GLOBULIN RATIO 0.6 (1.0-2.7); ALKALINE PHOSPHATASE 275 U/L (46-116); ANION GAP 9 mmol/L (5-15); ASPARTATE AMINO TRANSFERASE 48 U/L (15-37); BILIRUBIN,TOTAL 1.2 MG/DL (0.2-1.0); BLOOD UREA NITROGEN 44 mg/dL (7-18); CALCIUM 8.2 MG/DL (8.5-10.1); CARBON DIOXIDE 22 MMOL/L (21-32); CHLORIDE 98 MMOL/L (98-107); CREATINE KINASE 52 U/L (26-308); CREATININE 2.3 MG/DL (0.55-1.30); POTASSIUM 5.7 MMOL/L (3.5-5.1); SODIUM 129 MMOL/L (136-145)
[2019-09-30 17:50] LABS: BILIRUBIN,DIRECT 0.5 MG/DL (0.0-0.3)
--- NOTE | 2019-09-30 18:08 | Diagnostic Imaging Report ---
EXAM: CT Head Without Intravenous Contrast CLINICAL HISTORY: SYNCOPE TECHNIQUE: Axial computed tomography images of the head/brain without intravenous contrast. CTDI is 53.4 mGy and DLP is 965.4 mGy-cm. One or more of the following dose reduction techniques were used: automated exposure control, adjustment of the mA and/or kV according to patient size, use of iterative reconstruction technique. COMPARISON: None available. FINDINGS: Brain: Unremarkable. No hemorrhage. No significant white matter disease. No edema. Ventricles: Unremarkable. No ventriculomegaly. Bones/joints: See below. Otherwise unremarkable. Soft tissues: Unremarkable. Sinuses: Complete opacification of the left maxillary sinus with internal hyperdensity noted. There is no evidence of osseous remodeling, however, the entire sinus is not completely visualized. Remainder the visualized paranasal sinuses are unremarkable. Mastoid air cells: Unremarkable as visualized. No mastoid effusion. IMPRESSION: 1. No acute intracranial abnormality. 2. Partially visualized complete opacification of the left maxillary sinus with internal hyperdensity. Differential includes inspissated secretions, hemo-sinus, and fungal disease. No evidence of osseous remodeling or aggressive features on the limited evaluation. Recommend clinical correlation and consider sinus CT for further evaluation as clinically indicated.
--- NOTE | 2019-09-30 18:10 | Diagnostic Imaging Report ---
EXAM: XR Chest, 1 View CLINICAL HISTORY: SYNCOPE TECHNIQUE: Frontal view of the chest. COMPARISON: None available. FINDINGS: Lungs: Linear airspace density overlying the left costophrenic angle, likely representing atelectasis versus scarring. Pleural space: Unremarkable. No pneumothorax. Heart: Unremarkable. No cardiomegaly. Mediastinum: Unremarkable. Bones/joints: Degenerative changes of the acromioclavicular joints. Vasculature: Tortuosity of the aorta is noted. IMPRESSION: 1. Left basilar scarring versus subsegmental atelectasis. 2. Otherwise, no acute cardiopulmonary disease.
[2019-09-30] MEDS ORDERED: Insulin Human Regular 100units/ml 3ml IV ONE (18:30)
[2019-09-30 19:00] LABS: APPEARANCE,URINE CLEAR; BILIRUBIN, URINE NEGATIVE (NEGATIVE); COLOR,URINE PALE YELLOW; GLUCOSE, URINE (UA) 4+ (NEGATIVE); KETONES,URINE NEGATIVE (NEGATIVE); LEUKOCYTE ESTERASE ,URINE 1+ (NEGATIVE); NITRITE,URINE NEGATIVE (NEGATIVE); PH,URINE 6.5 (4.5-8.0); PROTEIN,URINE NEGATIVE (NEGATIVE); UROBILINOGEN,URINE 1 MG/DL (0.0-1.0)
--- NOTE | 2019-09-30 19:14 | Consultation ---
Consult Note Consult Note I was asked to evaluate the patient at the request of Dr. Hayes for renal failure and electrolyte imbalances Patient is speaker and was seen in emergency room. Discussed with emergency room physician and RN. He is in room #10. He presented with syncopal episode. Family stating that the patient had previous syncopal episodes also which is related to his blood sugar. Allergies not known COVID screening negative Has history of diabetes mellitus, hypertension, vague history of liver cancer. At the field patient's blood sugar was elevated. On examination the patient awake Maori speaker Afebrile heart rate 78 blood pressure 125/69 Not in any distress slightly pale Decreased breath sound over the bases Heart mainly regular occasional irregular beats Abdomen somewhat distended soft Laboratory data reviewed List of home medication unknown . Assessment/Plan This 59-year-old male presents with syncopal episode Hyperglycemia with a blood sugar of over 550 Renal failure which is most likely acute superimposed on chronic renal failure Hyperkalemia which partly secondary to dehydration and or may be related to type IV renal tubular acidosis and or may be related to the medication that the patient has been taking at home however no list is available at this time History of diabetes mellitus, patient have 4+ sugar in the urine and proteinuria History of hypertension Vague history of liver cancer Plan : admit to telemetry Keep the blood sugar and blood pressure in check Check orthostatics Monitor renal parameters Avoid nephrotoxic's Per orders Kali Carrero MD Sep 30, 2019 19:14
[2019-09-30 19:20] VITALS: BP 118/91
--- NOTE | 2019-09-30 19:20 | NUR ---
ED Nurse Note: Received report from KATINA Marrero. Patient resting in bed, no acute distress noted. Patient provided with urinal and warm blankets.
[2019-09-30] MEDS ORDERED: Sodium Polystyrene Sulfonate 15gm Powder ORAL SCH (19:30)
[2019-09-30] MEDS ORDERED: HydrALAZINE 25mg tab ORAL PRN (19:30)
--- NOTE | 2019-09-30 19:37 | NUR ---
ED Nurse Note: Client unable to recall names and dosages of medications taken at home, states he takes medications for diabetes, cholesterol, headaches, and liver cancer. Patient reports has list of medications and will be able to obtain this information later when he speaks to her.
--- NOTE | 2019-09-30 19:55 | NUR ---
ED Nurse Note: Report given to KATINA Bailon.
[2019-09-30 20:00] VITALS: BP 137/81
--- NOTE | 2019-09-30 20:00 | NUR ---
TRANSFER TO FLOOR: Patient transferred to telemetry as ordered, per ERMD. Report given to KATINA Bailon. Patient transported via gurney on ACLS protocol with monitor in stable condition accompanied by 2 RN.
--- NOTE | 2019-09-30 20:05 | NUR ---
NURSE NOTES: Pt arrived from ER via gurney. Got report from Jen AMBRIZ. Initial assessment done. Pt denies any pain. Pt denies any n/v or SOB. Pt is fully oriented and able to answer all of my questions. VSS T:97.9 HR:65 R:18 BP:137/81 O2:98% on room air. No skin issues noted. threat monitoring analyst placed on pt running Sinus Rhythm on the monitor. Pt has two iv lines: L FA 20g w/NS@50mL/hr and R AC 18g SLocked. Pt is continent and ambulatory but weak. No s/s of distress or discomfort noted. Pt resting in bed comfortably. Bed in low and locked position, call light within reach, bedside table within reach. Continue to monitor. Orders placed by Dr. Carrero/Abigail.
[2019-09-30] MEDS: Tamsulosin 0.4mg cap ORAL SCH (22:19)
--- NOTE | 2019-09-30 22:59 | History and Physical ---
History of Present Illness General Date patient seen: Sep 30, 2019 Reason for Hospitalization: Syncope Present Illness HPI Patient is a 59 YO Khmer Speaking gentleman presenting after a syncopal event. Patient overall is a poor historian and does not know much about his chronic medical conditions. Most of the PMHx is obtained from the medical chart. Patient reports that today while under shower he experienced a sudden onset of generalized weakness and fell on the ground. Patient is unsure as to whether he lost consciousness or hit his head. He does not know if he is taking any blood thinners. Patient denies any headache, visual change, loss of strength or sensation in his extremities. Denies any n/v/d/f/c/abdominal pain. He denies any CP or SOB proceeding to or following the incident. Of note, he reports of being hospitalized at an outside hospital about a month ago for similar clinical presentation. He does not know the details of the medical work up done during his prior hospitalization. Patient also reports that he was recently diagnosed with "either kidney or liver cancer" for which he is "taking a pill". He reports that his home medications are managed by his . On arrival to the ED, Vital signs were WNL. The CMP was significant for hyponatremia: 129, hyperkalemia: 5.7 and Cr: 2.3. Patient was found to be hyperglycemic at 543. The CBC remarkable for thrombocytopenia: 81. Liver enzymes significant for alk phos: 275. The ammonia level elevated at 93. Patient is being admitted for further observation and medical management. Allergies: Coded Allergies: No Known Allergies (Unverified , 09/30/19) COVID-19 Screening Contact w/high risk pt: No Recent Travel to affected area: No Experienced COVID-19 symptoms?: No Medication History Unable to Obtain Active Prescriptions or Reported Meds Patient History Healthcare decision maker Resuscitation status Advanced Directive on File Review of Systems Constitutional: Reports: no symptoms Eye: Reports: no symptoms ENT: Reports: no symptoms Respiratory: Reports: no symptoms Cardiovascular: Reports: no symptoms Gastrointestinal: Reports: no symptoms Genitourinary: Reports: no symptoms Musculoskeletal: Reports: no symptoms Psychiatric: Reports: no symptoms Neurological: Reports: no symptoms Endocrine: Reports: no symptoms Hematologic/Lymphatic: Reports: no symptoms Physical Exam General Appearance: alert Lines, tubes and drains: peripheral HEENT: normocephalic Neck: non-tender Respiratory/Chest: lungs clear Cardiovascular/Chest: normal peripheral pulses, normal rate, regular rhythm Abdomen: normal bowel sounds, non tender, other - mildly distended Extremities: normal range of motion Skin Exam: normal pigmentation Neurologic: alert, oriented x 3 Last 24 Hour Vital Signs Date Time Temp Pulse Resp B/P (MAP) Pulse Ox O2 Delivery O2 Flow Rate FiO2 09/30/19 20:00 98.0 72 16 118/91 100 Room Air 09/30/19 19:20 68 17 118/91 99 Room Air 09/30/19 17:45 98.1 78 20 129/76 97 Room Air 09/30/19 17:03 98.1 65 22 146/84 (104) 95 Room Air Laboratory Tests Test 09/30/19 17:13 09/30/19 18:32 White Blood Count 4.8 K/UL (4.8-10.8) Red Blood Count 3.89 M/UL (4.70-6.10) L Hemoglobin 11.6 G/DL (14.2-18.0) L Hematocrit 36.5 % (42.0-52.0) L Mean Corpuscular Volume 94 FL (80-99) Mean Corpuscular Hemoglobin 29.8 PG (27.0-31.0) Mean Corpuscular Hemoglobin Concent 31.7 G/DL (32.0-36.0) L Red Cell Distribution Width 15.3 % (11.6-14.8) H Platelet Count 81 K/UL (150-450) L Mean Platelet Volume 8.7 FL (6.5-10.1) Neutrophils (%) (Auto) 66.9 % (45.0-75.0) Lymphocytes (%) (Auto) 21.7 % (20.0-45.0) Monocytes (%) (Auto) 9.4 % (1.0-10.0) Eosinophils (%) (Auto) 0.9 % (0.0-3.0) Basophils (%) (Auto) 1.1 % (0.0-2.0) Prothrombin Time 13.7 SEC (9.30-11.50) H Prothromb Time International Ratio 1.3 (0.9-1.1) H Activated Partial Thromboplast Time 27 SEC (23-33) Sodium Level 129 MMOL/L (136-145) L Potassium Level 5.7 MMOL/L (3.5-5.1) H Chloride Level 98 MMOL/L (98-107) Carbon Dioxide Level 22 MMOL/L (21-32) Anion Gap 9 mmol/L (5-15) Blood Urea Nitrogen 44 mg/dL (7-18) H Creatinine 2.3 MG/DL (0.55-1.30) H Estimat Glomerular Filtration Rate 29.5 mL/min (>60) Glucose Level 543 MG/DL (74-106) *H Calcium Level 8.2 MG/DL (8.5-10.1) L Total Bilirubin 1.2 MG/DL (0.2-1.0) H Direct Bilirubin 0.5 MG/DL (0.0-0.3) H Aspartate Amino Transf (AST/SGOT) 48 U/L (15-37) H Alanine Aminotransferase (ALT/SGPT) 51 U/L (12-78) Alkaline Phosphatase 275 U/L (46-116) H Ammonia 94 umol/L (11-32) H Total Creatine Kinase 52 U/L (26-308) Troponin I 0.005 ng/mL (0.000-0.056) Pro-B-Type Natriuretic Peptide 305 pg/mL (0-125) H Total Protein 7.4 G/DL (6.4-8.2) Albumin 2.9 G/DL (3.4-5.0) L Globulin 4.5 g/dL Albumin/Globulin Ratio 0.6 (1.0-2.7) L Lipase 332 U/L (73-393) Serum Alcohol < 3 mg/dL Urine Color Pale yellow Urine Appearance Clear Urine pH 6.5 (4.5-8.0) Urine Specific [place] 1.005 (1.005-1.035) Urine Protein Negative (NEGATIVE) Urine Glucose (UA) 4+ (NEGATIVE) H Urine Ketones Negative (NEGATIVE) Urine Blood Negative (NEGATIVE) Urine Nitrite Negative (NEGATIVE) Urine Bilirubin Negative (NEGATIVE) Urine Urobilinogen 1 MG/DL (0.0-1.0) H Urine Leukocyte Esterase 1+ (NEGATIVE) H Urine RBC 0 /HPF (0 - 0) Urine WBC 5-10 /HPF (0 - 0) H Urine Squamous Epithelial Cells Few /LPF (NONE/OCC) Urine Bacteria Few /HPF (NONE) Height (Feet): 5 Height (Inches): 8.00 Weight (Pounds): 170 Medications Current Medications Medications (Trade) Dose Ordered Sig/Dewayne Route PRN Reason Start Time Stop Time Status Last Admin Dose Admin Docusate Sodium (Colace) 100 mg THREE TIMES A DAY ORAL 10/01/19 09:00 10/31/19 08:59 Hydralazine HCl (Apresoline) 25 mg Q4H PRN ORAL Blood pressure over 160 systol 09/30/19 19:30 12/29/19 19:29 Lactulose (Cephulac) 20 gm THREE TIMES A DAY ORAL 10/01/19 09:00 10/31/19 08:59 Metoclopramide HCl (Reglan) 5 mg TIAC ORAL 10/01/19 06:30 10/31/19 06:29 Pantoprazole (Protonix) 40 mg EVERY 12 HOURS ORAL 09/30/19 21:00 10/30/19 20:59 09/30/19 22:19 Sodium Chloride 1,000 ml @ 50 mls/hr Q20H IV 09/30/19 19:30 10/30/19 19:29 09/30/19 19:44 Sodium Chloride 1,000 ml @ 300 mls/hr Q3H20M IV 09/30/19 17:15 10/30/19 17:14 09/30/19 17:16 Tamsulosin HCl (Flomax) 0.4 mg BEDTIME ORAL 09/30/19 21:00 10/30/19 20:59 09/30/19 22:19 Assessment/Plan Assessment/Plan: Patient is a 59 YO Khmer Speaking gentleman presenting after a syncopal event. #Syncope -Etiologies include cardiogenic/neurogenic/orthostatic -CTH negative for any acute intracranial abnormality. 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 -Follow A.M EKG and Serum Trop. -BNP: 305 -2-D TTE for evaluation of cardiac wall and valvular abnormality. -Orthostatic measures. -Fall precaution. #Acute kidney injury likely on CKD #Hyperkalemia #Hyponatremia -Serum BUN: 44; Cr-: 2.3. Baseline values not available. -Serum K: 5.7; No EKG abnormalities. -Serum Na: 129 -RONN Pre-renal azotemia in the setting of poor PO intake vs. Intra-renal (e.g medication-induced?). -Avoid nephrotoxins. -Continue to monitor serum Creatinine. -IV N.S @ 50 cc/hr. -Consider Renal U/S if no improvement. -Dr. Carrero of Nephrology on board. Appreciate the follow up. #Hyperglycemia #History of Type II DM (?) -Serum glucose: 543 -No signs of DKA. -s/p 10 U of IV Regular Insulin in the ED. -Insulin SS. -A1c #Hx of hepatic CA (Type Unknown HCC vs. Cholangiocarcinoma ?) #Transaminitis #Elevated Ammonia #Hypoalbuminemia #Thrombocytopenia -No signs of acute liver failure. -Continue to monitor. -Lactulose 20 MG TID -Continue to monitor. -Consider abdominal ultrasound. -GI consultation in the A.M. I spent~72~minutes on this patient's case, and 30~minutes was dedicated to counseling and/or care coordination. I spent an additional 32~min on chart review including prior consult notes, progress notes, procedures, imaging, labs hemodynamics and clinical documentation. Khoa eBnder MD. Khoa Bender M.D. Sep 30, 2019 22:59
[2019-10-01] VITALS: BP 134/87
[2019-10-01 04:00] VITALS: BP 137/75
[2019-10-01] MEDS: NovoLOG Insulin Flexpen SUBQ SCH ×4 (06:14→22:00)
--- NOTE | 2019-10-01 07:30 | NUR ---
NURSE NOTES: Received pt from KATINA Burnett, pt is awake and alert, pt is in RA, no SOB or acute respiratory distress noted. pt is on continues heart monitoring, pt has intact iv access RAC 18g SL and LAC 20g is running well.no complain of pain at this moment. pt is eating breakfast by observation. all needs attended, bed is locked and is in the lowest position, call light within easy reach. will continue to monitor.
--- NOTE | 2019-10-01 07:30 | NUR ---
HAND-OFF: Report given to Brook AMBRIZ.
[2019-10-01 07:35] LABS: HEMATOCRIT 37.3 % (42.0-52.0); MEAN CORPUSCULAR VOLUME 93 FL (80-99); PLATELET COUNT 77 K/UL (150-450); RED BLOOD COUNT 3.99 M/UL (4.70-6.10); RED CELL DISTRIBUTION WIDTH 14.5 % (11.6-14.8); WHITE BLOOD COUNT 4.5 K/UL (4.8-10.8)
[2019-10-01 08:00] VITALS: BP 121/73
[2019-10-01 08:07] LABS: ALANINE AMINOTRANSFERASE 51 U/L (12-78); ALBUMIN/GLOBULIN RATIO 0.7 (1.0-2.7); ALKALINE PHOSPHATASE 252 U/L (46-116); ANION GAP 9 mmol/L (5-15); ASPARTATE AMINO TRANSFERASE 42 U/L (15-37); BILIRUBIN,TOTAL 1.3 MG/DL (0.2-1.0); BLOOD UREA NITROGEN 29 mg/dL (7-18); CALCIUM 8.7 MG/DL (8.5-10.1); CARBON DIOXIDE 23 MMOL/L (21-32); CHLORIDE 105 MMOL/L (98-107); CHOLESTEROL 147 MG/DL (< 200); CREATININE 1.4 MG/DL (0.55-1.30); FERRITIN 77 NG/ML (8-388); GAMMA GLUTAMYL TRANSPEPTIDASE 977 U/L (5-85); HDL CHOLESTEROL 26 MG/DL (40-60); POTASSIUM 4.4 MMOL/L (3.5-5.1); SODIUM 137 MMOL/L (136-145); TRIGLYCERIDES 229 MG/DL (30-150)
[2019-10-01 08:10] LABS: BILIRUBIN,DIRECT 0.6 MG/DL (0.0-0.3)
--- NOTE | 2019-10-01 08:37 | Consultation ---
Aliya Squires TITLE CLOSER 10/01/19 0837: History of Present Illness General Date patient seen: Oct 01, 2019 Time patient seen: 07:45 Chief Complaint: syncope Referring physician: Dr Perdomo Reason for Consultation: SOB Present Illness HPI 59 years old male with past medical history of hypertension, diabetes mellitus, liver cancer, presented after syncopal episode. Family reported that the patient was altered , however he was able to say his name. Patient also reported shortness of breath. EKG in the field showed no acute injury. Family reported prior episodes similar to this in the past . Upon evaluation patient was afebrile , saturating well on room air. Blood pressure was 146/84. Laboratory work-up revealed WBC 4.8, hemoglobin 11.6, hematocrit 36.5. Platelet count 81. Sodium 129, potassium 5.7. BUN 44, creatinine 2.3. Glucose 543. Anion gap 9. AST 48 ,ALT 51 . Alkaline phosphatase 51. Ammonia level 94. Troponin 0.005 , pro BNP 305. EKG revealed normal sinus rhythm, no acute ischemic changes Urinalysis revealed +4 glucose ,+1 leukocyte esterase , borderline pyuria and few bacteria. Chest x-ray revealed left basilar scaring versus subsegmental atelectasis, otherwise no acute cardiopulmonary disease. CT of the head revealed no acute intracranial abnormality. Partially visualized complete opacification of the left maxillary sinuses . In emergency department patient received IV fluids. Hyperkalemia was treated. Patient was admitted for further management Allergies: Coded Allergies: No Known Allergies (Unverified , 09/30/19) Medication History Unable to Obtain Active Prescriptions or Reported Meds Patient History Healthcare decision maker Resuscitation status Advanced Directive on File Review of Systems ROS Narrative unable to obtain due to altered mental status Physical Exam General Appearance: no apparent distress, alert - confused, Lines, tubes and drains: peripheral HEENT: normocephalic, atraumatic, anicteric, mucous membranes moist Neck: non-tender, supple Respiratory/Chest: lungs clear, no respiratory distress, no accessory muscle use Cardiovascular/Chest: normal rate, regular rhythm Abdomen: normal bowel sounds, soft - mild distention, TTP LUQ, no rebound, no guarding Extremities: no calf tenderness, normal capillary refill Skin Exam: warm/dry Neurologic: no motor/sensory deficits Last 24 Hour Vital Signs Date Time Temp Pulse Resp B/P (MAP) Pulse Ox O2 Delivery O2 Flow Rate FiO2 6/15/20 08:00 99.1 78 18 121/73 (89) 100 10/01/19 04:00 69 10/01/19 04:00 97.0 67 18 137/75 (95) 97 10/01/19 00:30 Room Air 10/01/19 00:17 Room Air 10/01/19 00:00 97.6 66 18 134/87 (103) 99 10/01/19 00:00 71 09/30/19 20:00 65 09/30/19 20:00 97.9 65 18 137/81 (99) 98 09/30/19 20:00 98.0 72 16 118/91 100 Room Air 09/30/19 19:20 68 17 118/91 99 Room Air 09/30/19 17:45 98.1 78 20 129/76 97 Room Air 09/30/19 17:03 98.1 65 22 146/84 (104) 95 Room Air Intake and Output 09/30/19 10/01/19 19:00 07:00 # Voids 1 2 Laboratory Tests Test 09/30/19 17:13 09/30/19 18:32 10/01/19 06:55 White Blood Count 4.8 K/UL (4.8-10.8) 4.5 K/UL (4.8-10.8) L Red Blood Count 3.89 M/UL (4.70-6.10) L 3.99 M/UL (4.70-6.10) L Hemoglobin 11.6 G/DL (14.2-18.0) L 12.0 G/DL (14.2-18.0) L Hematocrit 36.5 % (42.0-52.0) L 37.3 % (42.0-52.0) L Mean Corpuscular Volume 94 FL (80-99) 93 FL (80-99) Mean Corpuscular Hemoglobin 29.8 PG (27.0-31.0) 30.0 PG (27.0-31.0) Mean Corpuscular Hemoglobin Concent 31.7 G/DL (32.0-36.0) L 32.1 G/DL (32.0-36.0) Red Cell Distribution Width 15.3 % (11.6-14.8) H 14.5 % (11.6-14.8) Platelet Count 81 K/UL (150-450) L 77 K/UL (150-450) L Mean Platelet Volume 8.7 FL (6.5-10.1) 10.1 FL (6.5-10.1) Neutrophils (%) (Auto) 66.9 % (45.0-75.0) % (45.0-75.0) Lymphocytes (%) (Auto) 21.7 % (20.0-45.0) % (20.0-45.0) Monocytes (%) (Auto) 9.4 % (1.0-10.0) % (1.0-10.0) Eosinophils (%) (Auto) 0.9 % (0.0-3.0) % (0.0-3.0) Basophils (%) (Auto) 1.1 % (0.0-2.0) % (0.0-2.0) Prothrombin Time 13.7 SEC (9.30-11.50) H Prothromb Time International Ratio 1.3 (0.9-1.1) H Activated Partial Thromboplast Time 27 SEC (23-33) Sodium Level 129 MMOL/L (136-145) L 137 MMOL/L (136-145) Potassium Level 5.7 MMOL/L (3.5-5.1) H 4.4 MMOL/L (3.5-5.1) Chloride Level 98 MMOL/L (98-107) 105 MMOL/L (98-107) Carbon Dioxide Level 22 MMOL/L (21-32) 23 MMOL/L (21-32) Anion Gap 9 mmol/L (5-15) 9 mmol/L (5-15) Blood Urea Nitrogen 44 mg/dL (7-18) H 29 mg/dL (7-18) H Creatinine 2.3 MG/DL (0.55-1.30) H 1.4 MG/DL (0.55-1.30) H Estimat Glomerular Filtration Rate 29.5 mL/min (>60) 52.2 mL/min (>60) Glucose Level 543 MG/DL (74-106) *H 205 MG/DL (74-106) #H Calcium Level 8.2 MG/DL (8.5-10.1) L 8.7 MG/DL (8.5-10.1) Total Bilirubin 1.2 MG/DL (0.2-1.0) H 1.3 MG/DL (0.2-1.0) H Direct Bilirubin 0.5 MG/DL (0.0-0.3) H 0.6 MG/DL (0.0-0.3) H Aspartate Amino Transf (AST/SGOT) 48 U/L (15-37) H 42 U/L (15-37) H Alanine Aminotransferase (ALT/SGPT) 51 U/L (12-78) 51 U/L (12-78) Alkaline Phosphatase 275 U/L (46-116) H 252 U/L (46-116) H Ammonia 94 umol/L (11-32) H 90 umol/L (11-32) H Total Creatine Kinase 52 U/L (26-308) Troponin I 0.005 ng/mL (0.000-0.056) 0.009 ng/mL (0.000-0.056) Pro-B-Type Natriuretic Peptide 305 pg/mL (0-125) H 675 pg/mL (0-125) H Total Protein 7.4 G/DL (6.4-8.2) 7.5 G/DL (6.4-8.2) Albumin 2.9 G/DL (3.4-5.0) L 3.0 G/DL (3.4-5.0) L Globulin 4.5 g/dL 4.5 g/dL Albumin/Globulin Ratio 0.6 (1.0-2.7) L 0.7 (1.0-2.7) L Lipase 332 U/L (73-393) Serum Alcohol < 3 mg/dL Urine Color Pale yellow Urine Appearance Clear Urine pH 6.5 (4.5-8.0) Urine Specific [place] 1.005 (1.005-1.035) Urine Protein Negative (NEGATIVE) Urine Glucose (UA) 4+ (NEGATIVE) H Urine Ketones Negative (NEGATIVE) Urine Blood Negative (NEGATIVE) Urine Nitrite Negative (NEGATIVE) Urine Bilirubin Negative (NEGATIVE) Urine Urobilinogen 1 MG/DL (0.0-1.0) H Urine Leukocyte Esterase 1+ (NEGATIVE) H Urine RBC 0 /HPF (0 - 0) Urine WBC 5-10 /HPF (0 - 0) H Urine Squamous Epithelial Cells Few /LPF (NONE/OCC) Urine Bacteria Few /HPF (NONE) Neutrophils % (Manual) Pending Lymphocytes % (Manual) Pending Platelet Estimate Pending Platelet Morphology Pending Hemoglobin A1c Pending Uric Acid 8.4 MG/DL (2.6-7.2) H Phosphorus Level 3.0 MG/DL (2.5-4.9) Magnesium Level 1.6 MG/DL (1.8-2.4) L Iron Level Pending Unsaturated Iron Binding Pending Ferritin 77 NG/ML (8-388) Gamma Glutamyl Transpeptidase 977 U/L (5-85) H C-Reactive Protein, Quantitative 0.5 mg/dL (0.00-0.90) Triglycerides Level 229 MG/DL (30-150) H Cholesterol Level 147 MG/DL (< 200) LDL Cholesterol 74 mg/dL (<100) HDL Cholesterol 26 MG/DL (40-60) L Cholesterol/HDL Ratio 5.7 (3.3-4.4) H Alpha Fetoprotein Pending Vitamin B12 Level Pending Folate Pending Thyroid Stimulating Hormone (TSH) 0.974 uiU/mL (0.358-3.740) Height (Feet): 5 Height (Inches): 8.00 Weight (Pounds): 170 Medications Current Medications Medications (Trade) Dose Ordered Sig/Dewayne Route PRN Reason Start Time Stop Time Status Last Admin Dose Admin Dextrose (Dextrose 50%) 25 ml Q30M PRN IV Hypoglycemia 10/01/19 01:45 12/30/19 01:44 Dextrose (Dextrose 50%) 50 ml Q30M PRN IV Hypoglycemia 10/01/19 01:45 12/30/19 01:44 Docusate Sodium (Colace) 100 mg THREE TIMES A DAY ORAL 10/01/19 09:00 10/31/19 08:59 Hydralazine HCl (Apresoline) 25 mg Q4H PRN ORAL Blood pressure over 160 systol 09/30/19 19:30 12/29/19 19:29 Insulin Aspart (NovoLOG) BEFORE MEALS AND HS SUBQ 10/01/19 06:30 12/30/19 06:29 10/01/19 06:14 Lactulose (Cephulac) 20 gm THREE TIMES A DAY ORAL 10/01/19 09:00 10/31/19 08:59 Metoclopramide HCl (Reglan) 5 mg TIAC ORAL 10/01/19 06:30 10/31/19 06:29 10/01/19 06:14 Pantoprazole (Protonix) 40 mg EVERY 12 HOURS ORAL 09/30/19 21:00 10/30/19 20:59 09/30/19 22:19 Sodium Chloride 1,000 ml @ 50 mls/hr Q20H IV 09/30/19 19:30 10/30/19 19:29 09/30/19 19:44 Tamsulosin HCl (Flomax) 0.4 mg BEDTIME ORAL 09/30/19 21:00 10/30/19 20:59 09/30/19 22:19 Assessment/Plan Assessment/Plan: ASSESSMENT Syncopal episode Altered status, likely due to hepatic encephalopathy Shortness of breath Acute renal failure Electrolyte abnormalities Hyperglycemia without DKA Liver cancer Pancytopenia Hx of HTN PLAN OF CARE tele O2 prn titrate to keep sat above 90%, CXR noted Venous Duplex BLE. unable to start Heparin/Lovenox due to low PLT count, if Venous negative, will start on SCD monitor BP , Hydralazine prn for BP spikes repeat troponin , ECG CT head NGT orthostatic VS Lactulose increase to 30 tid and add Rifaximin, trend ammonia , LFT check AFP continue IVF, creat trending down, correct lytes as needed f/up with nephro recs GI prophylaxis BS management with SSI, HgA1c -12.1 not at goal BS management with SSI supportive care case discussed and evaluated by supervising physician Nasir Hayes MD 10/02/19 1707: History of Present Illness General Chief Complaint: syncope Present Illness Allergies: Coded Allergies: No Known Allergies (Unverified , 09/30/19) Medication History Unable to Obtain Active Prescriptions or Reported Meds Assessment/Plan Assessment/Plan: Patient seen and examined with TITLE CLOSER. Agree with above A&P as it reflects our joint deliberations. Aliya Squires NP Oct 01, 2019 08:37 Nasir Hayes MD Oct 02, 2019 17:07
[2019-10-01] MEDS ORDERED: Lactulose 20gm/30ml UDC ORAL SCH (09:00)
[2019-10-01] MEDS: Lactulose 20gm/30ml UDC ORAL SCH ×4 (09:00→17:01)
[2019-10-01] MEDS: Docusate 100mg cap ORAL SCH ×3 (09:06→17:01)
[2019-10-01 09:12] LABS: % IRON SATURATION 25 % (15-50); IRON 77 ug/dL (50-175); TOTAL IRON BINDING CAPACITY 312 ug/dL (250-450)
--- NOTE | 2019-10-01 10:26 | Nephrology Progress Note ---
Assessment/Plan Problem List: (1) Acute renal failure Assessment: Acute on chronic (2) Hyperglycemia Assessment: Diabetes mellitus [id number], hemoglobin A1c of 12 (3) Syncope (4) Hyperkalemia (5) Increased ammonia level Assessment This 59-year-old male presents with syncopal episode Hyperglycemia with a blood sugar of over 550 Renal failure which is most likely acute superimposed on chronic renal failure Hyperkalemia which partly secondary to dehydration and or may be related to type IV renal tubular acidosis and or may be related to the medication that the patient has been taking at home however no list is available at this time History of diabetes mellitus, patient have 4+ sugar in the urine and proteinuria History of hypertension Vague history of liver cancer Plan Discussed with RN, patient refuses lactulose. He is under impression that it increases her his blood sugar. Patient full code and remains on telemetry Keep the blood sugar and blood pressure in check Check orthostatics Monitor renal parameters Avoid nephrotoxic's Med list reviewed Per orders Subjective ROS Limited/Unobtainable: No Constitutional: Reports: other - Appears more responsive feels stronger Objective Objective Last 24 Hour Vital Signs Date Time Temp Pulse Resp B/P (MAP) Pulse Ox O2 Delivery O2 Flow Rate FiO2 10/01/19 08:00 99.1 78 18 121/73 (89) 100 10/01/19 04:00 69 10/01/19 04:00 97.0 67 18 137/75 (95) 97 10/01/19 00:30 Room Air 10/01/19 00:17 Room Air 10/01/19 00:00 97.6 66 18 134/87 (103) 99 10/01/19 00:00 71 09/30/19 20:00 65 09/30/19 20:00 97.9 65 18 137/81 (99) 98 09/30/19 20:00 98.0 72 16 118/91 100 Room Air 09/30/19 19:20 68 17 118/91 99 Room Air 09/30/19 17:45 98.1 78 20 129/76 97 Room Air 09/30/19 17:03 98.1 65 22 146/84 (104) 95 Room Air Intake and Output 09/30/19 10/01/19 19:00 07:00 # Voids 1 2 Current Medications Medications (Trade) Dose Ordered Sig/Dewayne Route PRN Reason Start Time Stop Time Status Last Admin Dose Admin Dextrose (Dextrose 50%) 25 ml Q30M PRN IV Hypoglycemia 10/01/19 01:45 12/30/19 01:44 Dextrose (Dextrose 50%) 50 ml Q30M PRN IV Hypoglycemia 10/01/19 01:45 12/30/19 01:44 Docusate Sodium (Colace) 100 mg THREE TIMES A DAY ORAL 10/01/19 09:00 10/31/19 08:59 10/01/19 09:06 Hydralazine HCl (Apresoline) 25 mg Q4H PRN ORAL Blood pressure over 160 systol 09/30/19 19:30 12/29/19 19:29 Insulin Aspart (NovoLOG) BEFORE MEALS AND HS SUBQ 10/01/19 06:30 12/30/19 06:29 10/01/19 06:14 Lactulose (Cephulac) 30 gm THREE TIMES A DAY ORAL 10/01/19 09:00 10/31/19 08:59 Magnesium Sulfate 100 ml @ 100 mls/hr Q1H IVPB 10/01/19 09:30 10/01/19 11:29 10/01/19 09:19 Metoclopramide HCl (Reglan) 5 mg TIAC ORAL 10/01/19 06:30 10/31/19 06:29 10/01/19 06:14 Pantoprazole (Protonix) 40 mg EVERY 12 HOURS ORAL 09/30/19 21:00 10/30/19 20:59 10/01/19 09:06 Rifaximin (Xifaxan) 550 mg EVERY 12 HOURS ORAL 10/01/19 09:00 10/08/19 08:59 10/01/19 09:06 Sodium Chloride 1,000 ml @ 50 mls/hr Q20H IV 09/30/19 19:30 10/30/19 19:29 09/30/19 19:44 Tamsulosin HCl (Flomax) 0.4 mg BEDTIME ORAL 09/30/19 21:00 10/30/19 20:59 09/30/19 22:19 Laboratory Tests 09/30/19 17:13: White Blood Count 4.8, Red Blood Count 3.89L, Hemoglobin 11.6L, Hematocrit 36.5L , Mean Corpuscular Volume 94, Mean Corpuscular Hemoglobin 29.8, Mean Corpuscular Hemoglobin Concent 31.7L, Red Cell Distribution Width 15.3H, Platelet Count 81L, Mean Platelet Volume 8.7, Neutrophils (%) (Auto) 66.9, Lymphocytes (%) (Auto) 21.7, Monocytes (%) (Auto) 9.4, Eosinophils (%) (Auto) 0.9, Basophils (%) (Auto) 1.1, Prothrombin Time 13.7H, Prothromb Time International Ratio 1.3H, Activated Partial Thromboplast Time 27, Sodium Level 129L, Potassium Level 5.7H, Chloride Level 98, Carbon Dioxide Level 22, Anion Gap 9, Blood Urea Nitrogen 44H, Creatinine 2.3H, Estimat Glomerular Filtration Rate 29.5, Glucose Level 543*H, Calcium Level 8.2L, Total Bilirubin 1.2H, Direct Bilirubin 0.5H, Aspartate Amino Transf (AST/SGOT) 48H, Alanine Aminotransferase (ALT/SGPT) 51, Alkaline Phosphatase 275H, Ammonia 94H, Total Creatine Kinase 52, Troponin I 0.005, Pro-B-Type Natriuretic Peptide 305H, Total Protein 7.4, Albumin 2.9L, Globulin 4.5, Albumin/Globulin Ratio 0.6L, Lipase 332, Serum Alcohol < 3 09/30/19 18:32: Urine Color Pale yellow, Urine Appearance Clear, Urine pH 6.5, Urine Specific [place] 1.005, Urine Protein Negative, Urine Glucose (UA) 4+H, Urine Ketones Negative, Urine Blood Negative, Urine Nitrite Negative, Urine Bilirubin Negative , Urine Urobilinogen 1H, Urine Leukocyte Esterase 1+H, Urine RBC 0, Urine WBC 5- 10H, Urine Squamous Epithelial Cells Few, Urine Bacteria Few 10/01/19 06:55: White Blood Count 4.5L, Red Blood Count 3.99L, Hemoglobin 12.0L, Hematocrit 37.3L, Mean Corpuscular Volume 93, Mean Corpuscular Hemoglobin 30.0, Mean Corpuscular Hemoglobin Concent 32.1, Red Cell Distribution Width 14.5, Platelet Count 77L, Mean Platelet Volume 10.1, Neutrophils (%) (Auto) , Lymphocytes (%) ( Auto) , Monocytes (%) (Auto) , Eosinophils (%) (Auto) , Basophils (%) (Auto) , Sodium Level 137, Potassium Level 4.4, Chloride Level 105, Carbon Dioxide Level 23, Anion Gap 9, Blood Urea Nitrogen 29H, Creatinine 1.4H, Estimat Glomerular Filtration Rate 52.2, Glucose Level 205#H, Calcium Level 8.7, Total Bilirubin 1.3H, Direct Bilirubin 0.6H, Aspartate Amino Transf (AST/SGOT) 42H, Alanine Aminotransferase (ALT/SGPT) 51, Alkaline Phosphatase 252H, Ammonia 90H, Troponin I 0.009, Pro-B-Type Natriuretic Peptide 675H, Total Protein 7.5, Albumin 3.0L, Globulin 4.5, Albumin/Globulin Ratio 0.7L, Differential Total Cells Counted 100, Neutrophils % (Manual) 75, Lymphocytes % (Manual) 22, Monocytes % (Manual) 3, Eosinophils % (Manual) 0, Basophils % (Manual) 0, Band Neutrophils 0, Platelet Estimate DecreasedL, Platelet Morphology Normal, Anisocytosis 1+, Hemoglobin A1c 12.1H, Uric Acid 8.4H, Phosphorus Level 3.0, Magnesium Level 1.6L, Iron Level 77, Total Iron Binding Capacity 312, Percent Iron Saturation 25, Unsaturated Iron Binding 235, Ferritin 77, Gamma Glutamyl Transpeptidase 977H, C-Reactive Protein, Quantitative 0.5, Triglycerides Level 229H, Cholesterol Level 147, LDL Cholesterol 74, HDL Cholesterol 26L, Cholesterol/HDL Ratio 5.7H, Alpha Fetoprotein [Pending], Vitamin B12 Level 1233H , Folate 22.8, Thyroid Stimulating Hormone (TSH) 0.974 Height (Feet): 5 Height (Inches): 8.00 Weight (Pounds): 170 General Appearance: no apparent distress, other - More responsive Cardiovascular: normal rate Respiratory/Chest: decreased breath sounds Abdomen: distended Kali Carrero MD Oct 01, 2019 10:26
--- NOTE | 2019-10-01 10:27 | Internal Med Progress Note ---
Subjective Date of Service: Oct 01, 2019 Physician Name Sheryl Mireles Attending Physician Nasir Hayes MD Current Medications Medications (Trade) Dose Ordered Sig/Dewayne Route PRN Reason Start Time Stop Time Status Last Admin Dose Admin Dextrose (Dextrose 50%) 25 ml Q30M PRN IV Hypoglycemia 10/01/19 01:45 12/30/19 01:44 Dextrose (Dextrose 50%) 50 ml Q30M PRN IV Hypoglycemia 10/01/19 01:45 12/30/19 01:44 Docusate Sodium (Colace) 100 mg THREE TIMES A DAY ORAL 10/01/19 09:00 10/31/19 08:59 10/01/19 09:06 Hydralazine HCl (Apresoline) 25 mg Q4H PRN ORAL Blood pressure over 160 systol 09/30/19 19:30 12/29/19 19:29 Insulin Aspart (NovoLOG) BEFORE MEALS AND HS SUBQ 10/01/19 06:30 12/30/19 06:29 10/01/19 06:14 Lactulose (Cephulac) 30 gm THREE TIMES A DAY ORAL 10/01/19 09:00 10/31/19 08:59 Magnesium Sulfate 100 ml @ 100 mls/hr Q1H IVPB 10/01/19 09:30 10/01/19 11:29 10/01/19 09:19 Metoclopramide HCl (Reglan) 5 mg TIAC ORAL 10/01/19 06:30 10/31/19 06:29 10/01/19 06:14 Pantoprazole (Protonix) 40 mg EVERY 12 HOURS ORAL 09/30/19 21:00 10/30/19 20:59 10/01/19 09:06 Rifaximin (Xifaxan) 550 mg EVERY 12 HOURS ORAL 10/01/19 09:00 10/08/19 08:59 10/01/19 09:06 Sodium Chloride 1,000 ml @ 50 mls/hr Q20H IV 09/30/19 19:30 10/30/19 19:29 09/30/19 19:44 Tamsulosin HCl (Flomax) 0.4 mg BEDTIME ORAL 09/30/19 21:00 10/30/19 20:59 09/30/19 22:19 Allergies: Coded Allergies: No Known Allergies (Unverified , 09/30/19) Subjective Patient visited at bedside. Vitals are stable and labs are improving. Asked patient to please obtain his records from outside oncology; he states he did have a biopsy. Objective Last Vital Signs Date Time Temp Pulse Resp B/P (MAP) Pulse Ox O2 Delivery O2 Flow Rate FiO2 10/01/19 08:00 99.1 78 18 121/73 (89) 100 10/01/19 00:30 Room Air General Appearance: WD/WN, no apparent distress EENT: normal ENT inspection Cardiovascular: normal rate, regular rhythm Respiratory/Chest: normal breath sounds, no respiratory distress Abdomen: soft Neurologic: greige mender II-XII grossly normal Skin: warm/dry Laboratory Tests Test 09/30/19 17:13 09/30/19 18:32 10/01/19 06:55 White Blood Count 4.8 K/UL (4.8-10.8) 4.5 K/UL (4.8-10.8) L Red Blood Count 3.89 M/UL (4.70-6.10) L 3.99 M/UL (4.70-6.10) L Hemoglobin 11.6 G/DL (14.2-18.0) L 12.0 G/DL (14.2-18.0) L Hematocrit 36.5 % (42.0-52.0) L 37.3 % (42.0-52.0) L Mean Corpuscular Volume 94 FL (80-99) 93 FL (80-99) Mean Corpuscular Hemoglobin 29.8 PG (27.0-31.0) 30.0 PG (27.0-31.0) Mean Corpuscular Hemoglobin Concent 31.7 G/DL (32.0-36.0) L 32.1 G/DL (32.0-36.0) Red Cell Distribution Width 15.3 % (11.6-14.8) H 14.5 % (11.6-14.8) Platelet Count 81 K/UL (150-450) L 77 K/UL (150-450) L Mean Platelet Volume 8.7 FL (6.5-10.1) 10.1 FL (6.5-10.1) Neutrophils (%) (Auto) 66.9 % (45.0-75.0) % (45.0-75.0) Lymphocytes (%) (Auto) 21.7 % (20.0-45.0) % (20.0-45.0) Monocytes (%) (Auto) 9.4 % (1.0-10.0) % (1.0-10.0) Eosinophils (%) (Auto) 0.9 % (0.0-3.0) % (0.0-3.0) Basophils (%) (Auto) 1.1 % (0.0-2.0) % (0.0-2.0) Prothrombin Time 13.7 SEC (9.30-11.50) H Prothromb Time International Ratio 1.3 (0.9-1.1) H Activated Partial Thromboplast Time 27 SEC (23-33) Sodium Level 129 MMOL/L (136-145) L 137 MMOL/L (136-145) Potassium Level 5.7 MMOL/L (3.5-5.1) H 4.4 MMOL/L (3.5-5.1) Chloride Level 98 MMOL/L (98-107) 105 MMOL/L (98-107) Carbon Dioxide Level 22 MMOL/L (21-32) 23 MMOL/L (21-32) Anion Gap 9 mmol/L (5-15) 9 mmol/L (5-15) Blood Urea Nitrogen 44 mg/dL (7-18) H 29 mg/dL (7-18) H Creatinine 2.3 MG/DL (0.55-1.30) H 1.4 MG/DL (0.55-1.30) H Estimat Glomerular Filtration Rate 29.5 mL/min (>60) 52.2 mL/min (>60) Glucose Level 543 MG/DL (74-106) *H 205 MG/DL (74-106) #H Calcium Level 8.2 MG/DL (8.5-10.1) L 8.7 MG/DL (8.5-10.1) Total Bilirubin 1.2 MG/DL (0.2-1.0) H 1.3 MG/DL (0.2-1.0) H Direct Bilirubin 0.5 MG/DL (0.0-0.3) H 0.6 MG/DL (0.0-0.3) H Aspartate Amino Transf (AST/SGOT) 48 U/L (15-37) H 42 U/L (15-37) H Alanine Aminotransferase (ALT/SGPT) 51 U/L (12-78) 51 U/L (12-78) Alkaline Phosphatase 275 U/L (46-116) H 252 U/L (46-116) H Ammonia 94 umol/L (11-32) H 90 umol/L (11-32) H Total Creatine Kinase 52 U/L (26-308) Troponin I 0.005 ng/mL (0.000-0.056) 0.009 ng/mL (0.000-0.056) Pro-B-Type Natriuretic Peptide 305 pg/mL (0-125) H 675 pg/mL (0-125) H Total Protein 7.4 G/DL (6.4-8.2) 7.5 G/DL (6.4-8.2) Albumin 2.9 G/DL (3.4-5.0) L 3.0 G/DL (3.4-5.0) L Globulin 4.5 g/dL 4.5 g/dL Albumin/Globulin Ratio 0.6 (1.0-2.7) L 0.7 (1.0-2.7) L Lipase 332 U/L (73-393) Serum Alcohol < 3 mg/dL Urine Color Pale yellow Urine Appearance Clear Urine pH 6.5 (4.5-8.0) Urine Specific [place] 1.005 (1.005-1.035) Urine Protein Negative (NEGATIVE) Urine Glucose (UA) 4+ (NEGATIVE) H Urine Ketones Negative (NEGATIVE) Urine Blood Negative (NEGATIVE) Urine Nitrite Negative (NEGATIVE) Urine Bilirubin Negative (NEGATIVE) Urine Urobilinogen 1 MG/DL (0.0-1.0) H Urine Leukocyte Esterase 1+ (NEGATIVE) H Urine RBC 0 /HPF (0 - 0) Urine WBC 5-10 /HPF (0 - 0) H Urine Squamous Epithelial Cells Few /LPF (NONE/OCC) Urine Bacteria Few /HPF (NONE) Differential Total Cells Counted 100 Neutrophils % (Manual) 75 % (45-75) Lymphocytes % (Manual) 22 % (20-45) Monocytes % (Manual) 3 % (1-10) Eosinophils % (Manual) 0 % (0-3) Basophils % (Manual) 0 % (0-2) Band Neutrophils 0 % (0-8) Platelet Estimate Decreased L Platelet Morphology Normal Anisocytosis 1+ Hemoglobin A1c 12.1 % (4.3-6.0) H Uric Acid 8.4 MG/DL (2.6-7.2) H Phosphorus Level 3.0 MG/DL (2.5-4.9) Magnesium Level 1.6 MG/DL (1.8-2.4) L Iron Level 77 ug/dL (50-175) Total Iron Binding Capacity 312 ug/dL (250-450) Percent Iron Saturation 25 % (15-50) Unsaturated Iron Binding 235 ug/dL (112-346) Ferritin 77 NG/ML (8-388) Gamma Glutamyl Transpeptidase 977 U/L (5-85) H C-Reactive Protein, Quantitative 0.5 mg/dL (0.00-0.90) Triglycerides Level 229 MG/DL (30-150) H Cholesterol Level 147 MG/DL (< 200) LDL Cholesterol 74 mg/dL (<100) HDL Cholesterol 26 MG/DL (40-60) L Cholesterol/HDL Ratio 5.7 (3.3-4.4) H Alpha Fetoprotein Pending Vitamin B12 Level 1233 PG/ML (193-986) H Folate 22.8 NG/ML (8.6-58.9) Thyroid Stimulating Hormone (TSH) 0.974 uiU/mL (0.358-3.740) Intake and Output 09/30/19 10/01/19 19:00 07:00 # Voids 1 2 Assessment/Plan Assessment/Plan Assessment #Syncope; CT brain negative, EKG w/ NSR --> presumed to be secondary to dehydration given labs, pending Echo, Carotid US #Acute Renal Failure, no baseline to compare #DMII, uncontrolled w/ A1C above 12 #Questionable Liver CA ( HCC?), w/ associated blood dyscrasias, elevated ammonia , pending PT/INR, + Transaminitis, Coagulopathies #Opacified Sinus; presently not concerned for aggressive or invasive infection; monitor w/ AB #HLD Plan Consult to Nephro and GI For syncope w/u, obtain carotid US, repeat EKG, Echo,Orthostatic Vitals Will obtain Abd US to evaluate both renal function and Liver Gentle IVF @ 50 cc/hr, Wang Cath, US pending to look for CKD Weight based insulin dosing, goal blood sugar less than 180 while inpatient, adjust prn--> hold [employer]son-Inhibitor for now given renal function Lactulose TIID+ Rifaximin, no signs of developing encephalopathy Obtain and reconcile home medications Initiate Statin, monitor liver enzymes GI ppx; Avoid chemical DVT at this time 2/2 thrombocytopenia Diet as tolerated Sheryl Mireles D.O. Oct 01, 2019 10:27
--- NOTE | 2019-10-01 11:34 | Cardiac Electrophysiology PN ---
Subjective Subjective [id number] Objective Last 24 Hour Vital Signs Date Time Temp Pulse Resp B/P (MAP) Pulse Ox O2 Delivery O2 Flow Rate FiO2 10/01/19 08:00 99.1 78 18 121/73 (89) 100 10/01/19 07:42 83 10/01/19 04:00 69 10/01/19 04:00 97.0 67 18 137/75 (95) 97 10/01/19 00:30 Room Air 10/01/19 00:17 Room Air 10/01/19 00:00 97.6 66 18 134/87 (103) 99 10/01/19 00:00 71 09/30/19 20:00 65 09/30/19 20:00 97.9 65 18 137/81 (99) 98 09/30/19 20:00 98.0 72 16 118/91 100 Room Air 09/30/19 19:20 68 17 118/91 99 Room Air 09/30/19 17:45 98.1 78 20 129/76 97 Room Air 09/30/19 17:03 98.1 65 22 146/84 (104) 95 Room Air Intake and Output 09/30/19 10/01/19 19:00 07:00 # Voids 1 2 Laboratory Tests Test 09/30/19 17:13 09/30/19 18:32 10/01/19 06:55 White Blood Count 4.8 K/UL (4.8-10.8) 4.5 K/UL (4.8-10.8) L Red Blood Count 3.89 M/UL (4.70-6.10) L 3.99 M/UL (4.70-6.10) L Hemoglobin 11.6 G/DL (14.2-18.0) L 12.0 G/DL (14.2-18.0) L Hematocrit 36.5 % (42.0-52.0) L 37.3 % (42.0-52.0) L Mean Corpuscular Volume 94 FL (80-99) 93 FL (80-99) Mean Corpuscular Hemoglobin 29.8 PG (27.0-31.0) 30.0 PG (27.0-31.0) Mean Corpuscular Hemoglobin Concent 31.7 G/DL (32.0-36.0) L 32.1 G/DL (32.0-36.0) Red Cell Distribution Width 15.3 % (11.6-14.8) H 14.5 % (11.6-14.8) Platelet Count 81 K/UL (150-450) L 77 K/UL (150-450) L Mean Platelet Volume 8.7 FL (6.5-10.1) 10.1 FL (6.5-10.1) Neutrophils (%) (Auto) 66.9 % (45.0-75.0) % (45.0-75.0) Lymphocytes (%) (Auto) 21.7 % (20.0-45.0) % (20.0-45.0) Monocytes (%) (Auto) 9.4 % (1.0-10.0) % (1.0-10.0) Eosinophils (%) (Auto) 0.9 % (0.0-3.0) % (0.0-3.0) Basophils (%) (Auto) 1.1 % (0.0-2.0) % (0.0-2.0) Prothrombin Time 13.7 SEC (9.30-11.50) H Prothromb Time International Ratio 1.3 (0.9-1.1) H Activated Partial Thromboplast Time 27 SEC (23-33) Sodium Level 129 MMOL/L (136-145) L 137 MMOL/L (136-145) Potassium Level 5.7 MMOL/L (3.5-5.1) H 4.4 MMOL/L (3.5-5.1) Chloride Level 98 MMOL/L (98-107) 105 MMOL/L (98-107) Carbon Dioxide Level 22 MMOL/L (21-32) 23 MMOL/L (21-32) Anion Gap 9 mmol/L (5-15) 9 mmol/L (5-15) Blood Urea Nitrogen 44 mg/dL (7-18) H 29 mg/dL (7-18) H Creatinine 2.3 MG/DL (0.55-1.30) H 1.4 MG/DL (0.55-1.30) H Estimat Glomerular Filtration Rate 29.5 mL/min (>60) 52.2 mL/min (>60) Glucose Level 543 MG/DL (74-106) *H 205 MG/DL (74-106) #H Calcium Level 8.2 MG/DL (8.5-10.1) L 8.7 MG/DL (8.5-10.1) Total Bilirubin 1.2 MG/DL (0.2-1.0) H 1.3 MG/DL (0.2-1.0) H Direct Bilirubin 0.5 MG/DL (0.0-0.3) H 0.6 MG/DL (0.0-0.3) H Aspartate Amino Transf (AST/SGOT) 48 U/L (15-37) H 42 U/L (15-37) H Alanine Aminotransferase (ALT/SGPT) 51 U/L (12-78) 51 U/L (12-78) Alkaline Phosphatase 275 U/L (46-116) H 252 U/L (46-116) H Ammonia 94 umol/L (11-32) H 90 umol/L (11-32) H Total Creatine Kinase 52 U/L (26-308) Troponin I 0.005 ng/mL (0.000-0.056) 0.009 ng/mL (0.000-0.056) Pro-B-Type Natriuretic Peptide 305 pg/mL (0-125) H 675 pg/mL (0-125) H Total Protein 7.4 G/DL (6.4-8.2) 7.5 G/DL (6.4-8.2) Albumin 2.9 G/DL (3.4-5.0) L 3.0 G/DL (3.4-5.0) L Globulin 4.5 g/dL 4.5 g/dL Albumin/Globulin Ratio 0.6 (1.0-2.7) L 0.7 (1.0-2.7) L Lipase 332 U/L (73-393) Serum Alcohol < 3 mg/dL Urine Color Pale yellow Urine Appearance Clear Urine pH 6.5 (4.5-8.0) Urine Specific [place] 1.005 (1.005-1.035) Urine Protein Negative (NEGATIVE) Urine Glucose (UA) 4+ (NEGATIVE) H Urine Ketones Negative (NEGATIVE) Urine Blood Negative (NEGATIVE) Urine Nitrite Negative (NEGATIVE) Urine Bilirubin Negative (NEGATIVE) Urine Urobilinogen 1 MG/DL (0.0-1.0) H Urine Leukocyte Esterase 1+ (NEGATIVE) H Urine RBC 0 /HPF (0 - 0) Urine WBC 5-10 /HPF (0 - 0) H Urine Squamous Epithelial Cells Few /LPF (NONE/OCC) Urine Bacteria Few /HPF (NONE) Differential Total Cells Counted 100 Neutrophils % (Manual) 75 % (45-75) Lymphocytes % (Manual) 22 % (20-45) Monocytes % (Manual) 3 % (1-10) Eosinophils % (Manual) 0 % (0-3) Basophils % (Manual) 0 % (0-2) Band Neutrophils 0 % (0-8) Platelet Estimate Decreased L Platelet Morphology Normal Anisocytosis 1+ Hemoglobin A1c 12.1 % (4.3-6.0) H Uric Acid 8.4 MG/DL (2.6-7.2) H Phosphorus Level 3.0 MG/DL (2.5-4.9) Magnesium Level 1.6 MG/DL (1.8-2.4) L Iron Level 77 ug/dL (50-175) Total Iron Binding Capacity 312 ug/dL (250-450) Percent Iron Saturation 25 % (15-50) Unsaturated Iron Binding 235 ug/dL (112-346) Ferritin 77 NG/ML (8-388) Gamma Glutamyl Transpeptidase 977 U/L (5-85) H C-Reactive Protein, Quantitative 0.5 mg/dL (0.00-0.90) Triglycerides Level 229 MG/DL (30-150) H Cholesterol Level 147 MG/DL (< 200) LDL Cholesterol 74 mg/dL (<100) HDL Cholesterol 26 MG/DL (40-60) L Cholesterol/HDL Ratio 5.7 (3.3-4.4) H Alpha Fetoprotein Pending Vitamin B12 Level 1233 PG/ML (193-986) H Folate 22.8 NG/ML (8.6-58.9) Thyroid Stimulating Hormone (TSH) 0.974 uiU/mL (0.358-3.740) Paul Dexter MD Oct 01, 2019 11:34
[2019-10-01 12:00] VITALS: BP 123/63
[2019-10-01] MEDS: Levemir Flexpen SUBQ SCH (12:08)
--- NOTE | 2019-10-01 13:50 | NUR ---
CASE MANAGEMENT:REVIEW 59 YR OLD MALE BLANCA FROM HOME CC: SYNCOPAL EPISODE SI: SYNCOPE. HYPONATREMIA 98.1 65 22 146/84 95% ON RA H/H-11.6/36.5 PLT-81 NA-129 K+5.7 GLUCOSE+543 IS: 1L NS BOLUS X2 IV INSULIN KAYEXALATE : TO TELEMETRY Addendum: 10/01/19 at 1551 by AUGUST CORREA LVN LVN INTERQUAL CRITERIA MET
--- NOTE | 2019-10-01 14:00 | Diagnostic Imaging Report ---
Indication: Reason For Exam: Leg pain Technique: Duplex and compression THE LOWER EXTREMITIES IMAGES OBTAINED. Comparison: None. Findings: The common femoral veins, femoral veins, popliteal veins, and demonstrated portions of the calf veins are normal in caliber and normally compressible. Normal duplex signals are seen within them. Normal respiratory variation and augmentation is noted. Impression: No evidence of vein thrombosis in the lower extremity veins.
--- NOTE | 2019-10-01 14:10 | Diagnostic Imaging Report ---
Indication: Reason For Exam: SYNCOPE Technique: Bilateral duplex carotid sonography was performed. Comparison: None. Findings: Right carotid: There is mild plaquing in the common carotid artery and proximal internal carotid artery. Duplex evaluation demonstrates normal velocities. Left carotid: Minimal plaquing is noted in the proximal internal carotid artery. Duplex evaluation demonstrates normal velocities. Vertebral arteries: There is antegrade flow bilaterally. Impression: Right carotid: Minimal plaquing. Narrowing of the internal carotid artery less than 50%. Left carotid: Minimal plaquing. Narrowing of the internal carotid artery less than 50%. Vertebral arteries: Antegrade flow bilaterally.
--- NOTE | 2019-10-01 15:58 | Diagnostic Imaging Report ---
Indication: Reason For Exam: ABN LABS Technique: Ultrasound of the abdomen. Comparison: None Findings: Liver: The liver surface is nodular. Liver is mildly heterogeneous. Gallbladder: The gallbladder is normal. No stones are visualized. The wall is not thickened. Common bile duct: Normal in size. Pancreas: The visualized portion of pancreas is normal in echogenicity. There are no masses. Kidneys: The kidneys are normal in size and echogenicity. There is no hydronephrosis. Spleen: Enlarged measuring 13.6 cm. Aorta: The visualized portion of the aorta is normal in caliber. The proximal aorta is obscured. IVC: The demonstrated portion of the inferior vena cava is normal. There is a small amount of ascites. Impression: Cirrhosis. Splenomegaly. Small amount of ascites.
[2019-10-01 16:00] VITALS: BP 148/82
--- NOTE | 2019-10-01 19:34 | NUR ---
HAND-OFF: Report given to KATINA Zhou. Pt is alert and stable, Endorsed plan of care.
[2019-10-01 20:00] VITALS: BP 138/81
--- NOTE | 2019-10-01 20:00 | NUR ---
NURSE NOTES: RECEIVED PATIENT LYING IN BED, AWAKE, ALERT/ORIENTED X4, KINYARWANDA SPEAKING, ABLE TO VERBALIZE SIMPLE NEEDS IN ROMAN[place], DENIES PAIN. NO SIGNS AND SYMPTOMS OF ACUTE CARDIO RESPIRATORY DISTRESS/SHORTNESS OF BREATH, DENIES CHEST PAIN, NO PERIPHERAL EDEMA NOTED. CONTINUE ON BARK TANNER. IV INTACT TO LEFT FOREARM/GAUGE 20, TOLERATING IV FLUIDS, NO REDNESS/SWELLING NOTED. ABDOMEN SOFT, SLIGHTLY DISTENDED, NON TENDER, AUDIBLE BOWEL SOUNDS, CONTINENT OF B/B, BATHROOM PRIVILEGES WITH ASSIST. FALL PRECAUTIONS OBSERVED AT ALL TIMES SECONDARY TO SYNCOPE; SIDE RAILS UP X3/BED IN LOWEST POSITION FOR SAFETY, BED ALARM ACTIVATED, ENCOURAGED PATIENT TO UTILIZE CALL LIGHT FOR ASSISTANCE, VERBALIZED UNDERSTANDING. NAD.
--- NOTE | 2019-10-01 20:30 | Consultation ---
DATE OF CONSULTATION: 10/01/2019 CARDIOLOGY CONSULTATION CONSULTING PHYSICIAN: Paul Dexter MD. REFERRING PHYSICIAN: Nasir Hayes MD. REASON FOR CONSULTATION: Syncope and chest pain. HISTORY OF PRESENT ILLNESS: The patient is a 59-year-old gentleman with history of hypertension, diabetes, history of liver cancer, who presents after he had syncopal episodes. Apparently, the patient was altered per family. The patient also has shortness of breath. The troponin was negative. BNP was and EKG showed sinus rhythm with no acute ischemic changes. The head CT showed no acute intracranial pathology. The patient received IV fluids and his hyperkalemia was treated. REVIEW OF SYSTEMS: Negative other than what was mentioned in the history of present illness. PAST MEDICAL HISTORY: As mentioned above. FAMILY HISTORY: Noncontributory. SOCIAL HISTORY: He lives at home. Does not smoke or drink alcohol. PHYSICAL EXAMINATION: VITAL SIGNS: Show blood pressure of 121/73, pulse 78, respirations 18, temperature 99.1. HEAD AND NECK: Showed no JVD. LUNGS: Clear. CARDIOVASCULAR: Shows regular S1 and S2 with no gallop or murmur. ABDOMEN: Soft. EXTREMITIES: No pitting edema. LABORATORY AND DIAGNOSTIC DATA: Labs show white count of 4.5, hemoglobin 12, hematocrit 37, and platelet count of 287,000. Sodium 137, potassium 4.4, BUN of 29, creatinine 1.4, and glucose 205. Troponin negative x2. Ammonia level is 90. BNP 675. Total bilirubin is 1.3. ASSESSMENT AND PLAN: 1. Syncope. The etiology is not clear at this time. The patient remained in sinus rhythm. His EKG showed normal sinus rhythm, normal electrocardiogram. His echocardiogram preliminary report showed ejection fraction of 60%. We will check orthostatic vital signs. 2. Hypertension, on p.r.n. hydralazine. 3. Diabetes, on insulin. 4. Hyperlipidemia, on Lipitor. 5. CT of the brain was negative and syncope could be due to dehydration. 6. Acute renal failure. Further evaluation by Dr. Carrero. 7. Questionable liver cancer ammonia pending PT and INR. Thank you very much for allowing me to participate in the care of this patient. Please do not hesitate to contact me for any questions regarding my evaluation. Paul Dexter M.D. DR: Bert JOB#: [id number] CC:
[2019-10-01] MEDS ORDERED: Atorvastatin 20mg tab ORAL SCH (21:00)
[2019-10-01] MEDS: Tamsulosin 0.4mg cap ORAL SCH (21:03)
--- NOTE | 2019-10-01 22:00 | NUR ---
NURSE NOTES: BLOOD GLUCOSE MONITORED VIA GLUCOMETER WITH RESULT 323MG/DL, ASSESSED FOR SIGNS AND SYMPTOMS OF HYPERGLYCEMIA, NONE NOTED, MEDICATED WITH 6 UNITS NOVOLOG INSULIN, TOLERATED WELL, NO ADVERSE REACTION NOTED AFTER 15 MINUTES.
[2019-10-02] VITALS: BP 106/62
--- NOTE | 2019-10-02 02:15 | NUR ---
NURSE NOTES: APPEAR TO BE SLEEP ON ROUNDS, EYES CLOSED. NO SIGNS AND SYMPTOMS OF DISTRESS.
[2019-10-02 04:00] VITALS: BP 137/86
[2019-10-02 04:58] LABS: HEMATOCRIT 36.9 % (42.0-52.0); HEMOGLOBIN 11.8 G/DL (14.2-18.0); MEAN CORPUSCULAR VOLUME 93 FL (80-99); PLATELET COUNT 73 K/UL (150-450); RED BLOOD COUNT 3.97 M/UL (4.70-6.10); WHITE BLOOD COUNT 5.5 K/UL (4.8-10.8)
[2019-10-02 05:34] LABS: AMMONIA 67 umol/L (11-32)
[2019-10-02 05:47] LABS: ALANINE AMINOTRANSFERASE 43 U/L (12-78); ALBUMIN/GLOBULIN RATIO 0.7 (1.0-2.7); ALKALINE PHOSPHATASE 267 U/L (46-116); ANION GAP 10 mmol/L (5-15); ASPARTATE AMINO TRANSFERASE 35 U/L (15-37); BLOOD UREA NITROGEN 26 mg/dL (7-18); CALCIUM 8.6 MG/DL (8.5-10.1); CARBON DIOXIDE 22 MMOL/L (21-32); CHLORIDE 103 MMOL/L (98-107); CREATININE 1.5 MG/DL (0.55-1.30); PHOSPHORUS 2.7 MG/DL (2.5-4.9); POTASSIUM 4.6 MMOL/L (3.5-5.1); SODIUM 135 MMOL/L (136-145)
[2019-10-02] MEDS: NovoLOG Insulin Flexpen SUBQ SCH ×6 (06:29→20:22)
[2019-10-02 08:00] VITALS: BP 133/83
--- NOTE | 2019-10-02 08:14 | Cardiac Electrophysiology PN ---
Assessment/Plan Assessment/Plan 1. Syncope. The etiology is not clear at this time. The patient remained in sinus rhythm. His EKG showed normal sinus rhythm, normal electrocardiogram. His echocardiogram showed ejection fraction of 60%. Was only mildly orthostatic. CT of the brain was negative and syncope could be due todehydration. 2. Hypertension, on p.r.n. hydralazine. 3. Diabetes, on insulin. 4. Hyperlipidemia, on Lipitor. 6. Acute renal failure. Further evaluation by Dr. Carrero. 7. Questionable liver cancer ammonia and PT and INR. Subjective Subjective In SR in NAD. No CP or SOB Objective Last 24 Hour Vital Signs Date Time Temp Pulse Resp B/P (MAP) Pulse Ox O2 Delivery O2 Flow Rate FiO2 10/02/19 04:00 Room Air 10/02/19 04:00 98.3 20 137/86 (103) 99 10/02/19 04:00 96 10/02/19 00:00 97.9 18 106/62 (77) 97 10/02/19 00:00 Room Air 10/02/19 00:00 93 10/01/19 21:00 Room Air 10/01/19 20:00 99.1 84 18 138/81 (100) 99 10/01/19 20:00 75 10/01/19 20:00 81 84 87 10/01/19 16:00 98.6 76 18 148/82 (104) 100 10/01/19 15:10 65 10/01/19 15:00 76 78 85 10/01/19 12:00 98.1 87 20 123/63 (83) 98 10/01/19 11:41 71 10/01/19 09:00 Room Air Intake and Output 10/01/19 10/02/19 19:00 07:00 Intake Total 940 ml 1150 ml Output Total 1400 ml Balance -460 ml 1150 ml Intake Oral 140 ml 600 ml IV Total 800 ml 550 ml Output Urine Total 1400 ml # Voids 3 5 Laboratory Tests Test 10/02/19 04:50 White Blood Count 5.5 K/UL (4.8-10.8) Red Blood Count 3.97 M/UL (4.70-6.10) L Hemoglobin 11.8 G/DL (14.2-18.0) L Hematocrit 36.9 % (42.0-52.0) L Mean Corpuscular Volume 93 FL (80-99) Mean Corpuscular Hemoglobin 29.8 PG (27.0-31.0) Mean Corpuscular Hemoglobin Concent 32.0 G/DL (32.0-36.0) Red Cell Distribution Width 15.0 % (11.6-14.8) H Platelet Count 73 K/UL (150-450) L Mean Platelet Volume 10.3 FL (6.5-10.1) H Neutrophils (%) (Auto) % (45.0-75.0) Lymphocytes (%) (Auto) % (20.0-45.0) Monocytes (%) (Auto) % (1.0-10.0) Eosinophils (%) (Auto) % (0.0-3.0) Basophils (%) (Auto) % (0.0-2.0) Sodium Level 135 MMOL/L (136-145) L Potassium Level 4.6 MMOL/L (3.5-5.1) Chloride Level 103 MMOL/L (98-107) Carbon Dioxide Level 22 MMOL/L (21-32) Anion Gap 10 mmol/L (5-15) Blood Urea Nitrogen 26 mg/dL (7-18) H Creatinine 1.5 MG/DL (0.55-1.30) H Estimat Glomerular Filtration Rate 48.2 mL/min (>60) Glucose Level 344 MG/DL (74-106) #H Uric Acid 7.7 MG/DL (2.6-7.2) H Calcium Level 8.6 MG/DL (8.5-10.1) Phosphorus Level 2.7 MG/DL (2.5-4.9) Magnesium Level 1.8 MG/DL (1.8-2.4) Total Bilirubin 1.0 MG/DL (0.2-1.0) Aspartate Amino Transf (AST/SGOT) 35 U/L (15-37) Alanine Aminotransferase (ALT/SGPT) 43 U/L (12-78) Alkaline Phosphatase 267 U/L (46-116) H Ammonia 67 umol/L (11-32) H Pro-B-Type Natriuretic Peptide 1158 pg/mL (0-125) H Total Protein 7.5 G/DL (6.4-8.2) Albumin 3.0 G/DL (3.4-5.0) L Globulin 4.5 g/dL Albumin/Globulin Ratio 0.7 (1.0-2.7) L Objective HEAD AND NECK: No JVD. LUNGS: Clear. CARDIOVASCULAR: Regular S1 and S2 with no gallop or murmur. ABDOMEN: Soft. EXTREMITIES: No pitting edema. Paul Dexter MD Oct 02, 2019 08:14
[2019-10-02] MEDS: Lactulose 20gm/30ml UDC ORAL SCH ×3 (08:26→17:11)
[2019-10-02] MEDS: Docusate 100mg cap ORAL SCH ×3 (08:27→17:11)
[2019-10-02] MEDS: Levemir Flexpen SUBQ SCH (08:27)
--- NOTE | 2019-10-02 10:08 | NUR ---
CASE MANAGEMENT:REVIEW 10/02/19 SI: SYNCOPE. HYPONATREMIA. DEHYDRATION ACUTE RENAL FAILURE. ELEVATED AMMONIA LEVEL 98.1 84 18 133/83 98% ON RA H/H-11.8/36.9 BP=865 PLT-73 BUN+26 CR+1.5 IS: IVF@50/HR SSI SQ AC+HS LIPITOR PO QHS LEVEMIR SQ QD LACTULOSE PO TID RIFAXIMIN PO Q12 REGLAN PO TID AC FLOMAX PO QHS PROTONIX PO Q12 : TELEMETRY STATUS DCP: FROM HOME
--- NOTE | 2019-10-02 10:40 | Pulmonology Progress Note ---
Aliya Squires [employer] 10/02/19 1040: Subjective ROS Limited/Unobtainable: No Allergies: Coded Allergies: No Known Allergies (Unverified , 09/30/19) Subjective denies SOB, reports dry coug no chest pain pulse ox stable on RA BS not controlled + orthostatic changes ( yesterday and this am) Objective Last 24 Hour Vital Signs Date Time Temp Pulse Resp B/P (MAP) Pulse Ox O2 Delivery O2 Flow Rate FiO2 10/02/19 09:00 84 90 100 10/02/19 09:00 Room Air 10/02/19 08:00 98.1 18 133/83 (100) 98 10/02/19 07:44 86 10/02/19 04:00 Room Air 10/02/19 04:00 98.3 20 137/86 (103) 99 10/02/19 04:00 96 10/02/19 00:00 97.9 18 106/62 (77) 97 10/02/19 00:00 Room Air 10/02/19 00:00 93 10/01/19 21:00 Room Air 10/01/19 20:00 99.1 84 18 138/81 (100) 99 10/01/19 20:00 75 10/01/19 20:00 81 84 87 10/01/19 16:00 98.6 76 18 148/82 (104) 100 10/01/19 15:10 65 10/01/19 15:00 76 78 85 10/01/19 12:00 98.1 87 20 123/63 (83) 98 10/01/19 11:41 71 Intake and Output 10/01/19 10/02/19 19:00 07:00 Intake Total 940 ml 1150 ml Output Total 1400 ml Balance -460 ml 1150 ml Intake Oral 140 ml 600 ml IV Total 800 ml 550 ml Output Urine Total 1400 ml # Voids 3 5 Objective General Appearance: no apparent distress, alert, confused, Lines, tubes and drains: peripheral HEENT: normocephalic, atraumatic, anicteric, mucous membranes moist Neck: non-tender, supple Respiratory/Chest: lungs clear, no respiratory distress, no accessory muscle use Cardiovascular/Chest: normal rate, regular rhythm Abdomen: normal bowel sounds, soft , mild distention, TTP LUQ, no rebound, no guarding Extremities: no calf tenderness, normal capillary refill Skin Exam: warm/dry Neurologic: no motor/sensory deficits Laboratory Tests 10/02/19 04:50: White Blood Count 5.5, Red Blood Count 3.97L, Hemoglobin 11.8L, Hematocrit 36.9L , Mean Corpuscular Volume 93, Mean Corpuscular Hemoglobin 29.8, Mean Corpuscular Hemoglobin Concent 32.0, Red Cell Distribution Width 15.0H, Platelet Count 73L, Mean Platelet Volume 10.3H, Neutrophils (%) (Auto) , Lymphocytes (%) (Auto) , Monocytes (%) (Auto) , Eosinophils (%) (Auto) , Basophils (%) (Auto) , Sodium Level 135L, Potassium Level 4.6, Chloride Level 103, Carbon Dioxide Level 22, Anion Gap 10, Blood Urea Nitrogen 26H, Creatinine 1.5H, Estimat Glomerular Filtration Rate 48.2, Glucose Level 344#H, Uric Acid 7.7H, Calcium Level 8.6, Phosphorus Level 2.7, Magnesium Level 1.8, Total Bilirubin 1.0, Aspartate Amino Transf (AST/SGOT) 35, Alanine Aminotransferase ( ALT/SGPT) 43, Alkaline Phosphatase 267H, Ammonia 67H, Pro-B-Type Natriuretic Peptide 1158H, Total Protein 7.5, Albumin 3.0L, Globulin 4.5, Albumin/Globulin Ratio 0.7L Current Medications Medications (Trade) Dose Ordered Sig/Dewayne Route PRN Reason Start Time Stop Time Status Last Admin Dose Admin Atorvastatin Calcium (Lipitor) 40 mg BEDTIME ORAL 10/01/19 21:00 12/30/19 20:59 10/01/19 21:03 Dextrose (Dextrose 50%) 25 ml Q30M PRN IV Hypoglycemia 10/01/19 01:45 12/30/19 01:44 Dextrose (Dextrose 50%) 50 ml Q30M PRN IV Hypoglycemia 10/01/19 01:45 12/30/19 01:44 Docusate Sodium (Colace) 100 mg THREE TIMES A DAY ORAL 10/01/19 09:00 10/31/19 08:59 10/02/19 08:27 Hydralazine HCl (Apresoline) 25 mg Q4H PRN ORAL Blood pressure over 160 systol 09/30/19 19:30 12/29/19 19:29 Insulin Aspart (NovoLOG) BEFORE MEALS AND HS SUBQ 10/02/19 11:30 12/31/19 11:29 Insulin Detemir (Levemir) 23 units DAILY SUBQ 10/01/19 10:30 12/30/19 10:29 10/02/19 08:27 Lactulose (Cephulac) 30 gm THREE TIMES A DAY ORAL 10/01/19 09:00 10/31/19 08:59 10/02/19 08:26 Metoclopramide HCl (Reglan) 5 mg TIAC ORAL 10/01/19 06:30 10/31/19 06:29 10/02/19 06:23 Pantoprazole (Protonix) 40 mg EVERY 12 HOURS ORAL 09/30/19 21:00 10/30/19 20:59 10/02/19 08:27 Rifaximin (Xifaxan) 550 mg EVERY 12 HOURS ORAL 10/01/19 09:00 10/08/19 08:59 10/02/19 08:26 Sodium Chloride 1,000 ml @ 50 mls/hr Q20H IV 09/30/19 19:30 10/30/19 19:29 10/01/19 23:24 Tamsulosin HCl (Flomax) 0.4 mg BEDTIME ORAL 09/30/19 21:00 10/30/19 20:59 10/01/19 21:03 Assessment/Plan Assessment/Plan ASSESSMENT Syncopal episode possibly fdud to dehydration, also + orthostatic changes Acute on chronic hepatic encephalopathy Altered mental status due to hepatic encephalopathy Shortness of breath Acute renal failure Electrolyte abnormalities Hyperglycemia without DKA DM OOG Liver cancer Cirrhosis Pancytopenia Hx of HTN PLAN OF CARE tele O2 prn titrate to keep sat above 90%, CXR noted, stable add a/tussive prn Venous Duplex BLE. unable to start Heparin/Lovenox due to low PLT count, if Venous negative, will start on SCD monitor BP , Hydralazine prn for BP spikes repeated troponin NGT, ECG no acute ischemic changes, ruled out for acute MA tele-SR with some PVC CT head NGT carotid Duplex < 50% stenosis orthostatic VS -> positive for orthostatic changes get PT eval and Rx Lactulose increased to 30 tid and add Rifaximin, ammonia down to 67 AFP 2.6 continue IVF, creat trending down-1.5; correct lytes as needed f/up with nephro recs GI prophylaxis abd US -> SP, cirrhosis, small ascites BS management with Levemir, dose increased to bid, add short acting premeal Novolog and change SS to moderate from sensitive HgA1c -12.1 not at goal diabetic diet supportive care case discussed and evaluated by supervising physician Nasir Hayes MD 10/02/19 1707: Subjective Allergies: Coded Allergies: No Known Allergies (Unverified , 09/30/19) Assessment/Plan Assessment/Plan Patient seen and examined with [employer]. Agree with above A&P as it reflects our joint deliberations. Aliya Squires NP Oct 02, 2019 10:40 Nasir Hayes MD Oct 02, 2019 17:07
--- NOTE | 2019-10-02 11:24 | NUR ---
NURSE NOTES: per MD pt for DCP, spoke with Dr Mireles and gave order okay to transfer to [facility]
--- NOTE | 2019-10-02 11:39 | Internal Med Progress Note ---
Subjective Date of Service: Oct 02, 2019 Physician Name Sheryl Mireles Attending Physician Nasir Hayes MD Current Medications Medications (Trade) Dose Ordered Sig/Dewayne Route PRN Reason Start Time Stop Time Status Last Admin Dose Admin Atorvastatin Calcium (Lipitor) 40 mg BEDTIME ORAL 10/01/19 21:00 12/30/19 20:59 10/01/19 21:03 Dextrose (Dextrose 50%) 25 ml Q30M PRN IV Hypoglycemia 10/01/19 01:45 12/30/19 01:44 Dextrose (Dextrose 50%) 50 ml Q30M PRN IV Hypoglycemia 10/01/19 01:45 12/30/19 01:44 Docusate Sodium (Colace) 100 mg THREE TIMES A DAY ORAL 10/01/19 09:00 10/31/19 08:59 10/02/19 08:27 Guaifenesin/ Dextromethorphan (Robitussin DM Syrup) 10 ml Q4H PRN ORAL For Cough 10/02/19 10:45 12/31/19 10:44 Hydralazine HCl (Apresoline) 25 mg Q4H PRN ORAL Blood pressure over 160 systol 09/30/19 19:30 12/29/19 19:29 Insulin Aspart (NovoLOG) BEFORE MEALS AND HS SUBQ 10/02/19 11:30 12/31/19 11:29 Insulin Aspart (NovoLOG) 5 units NOVOTIAC SUBQ 10/02/19 11:50 12/31/19 11:49 Insulin Detemir (Levemir) 15 units BID SUBQ 10/03/19 18:00 12/30/19 10:29 Lactulose (Cephulac) 30 gm THREE TIMES A DAY ORAL 10/01/19 09:00 10/31/19 08:59 10/02/19 08:26 Metoclopramide HCl (Reglan) 5 mg TIAC ORAL 10/01/19 06:30 10/31/19 06:29 10/02/19 06:23 Pantoprazole (Protonix) 40 mg EVERY 12 HOURS ORAL 09/30/19 21:00 10/30/19 20:59 10/02/19 08:27 Rifaximin (Xifaxan) 550 mg EVERY 12 HOURS ORAL 10/01/19 09:00 6/22/20 08:59 10/02/19 08:26 Sodium Chloride 1,000 ml @ 50 mls/hr Q20H IV 09/30/19 19:30 10/30/19 19:29 10/01/19 23:24 Tamsulosin HCl (Flomax) 0.4 mg BEDTIME ORAL 09/30/19 21:00 10/30/19 20:59 10/01/19 21:03 Allergies: Coded Allergies: No Known Allergies (Unverified , 09/30/19) Subjective Patient is doing well, labs reviewed and vitals stable. Renal function is improving. Syncope work-up mostly unremarkable, echocardiogram within normal limits, EKG sinus rhythm, carotid ultrasound without flow-limiting stenosis. Will request physical therapy evaluation and patient can be downgraded to [facility] as he has been stable. Still trying to obtain records from outside facility. Will request home health for patient. Ultrasound shows splenomegaly but no hydronephrosis. It did Note a nodular liver. Objective Last Vital Signs Date Time Temp Pulse Resp B/P (MAP) Pulse Ox O2 Delivery O2 Flow Rate FiO2 10/02/19 09:00 84 90 100 10/02/19 09:00 Room Air 10/02/19 08:00 98.1 18 133/83 (100) 98 Laboratory Tests Test 10/02/19 04:50 White Blood Count 5.5 K/UL (4.8-10.8) Red Blood Count 3.97 M/UL (4.70-6.10) L Hemoglobin 11.8 G/DL (14.2-18.0) L Hematocrit 36.9 % (42.0-52.0) L Mean Corpuscular Volume 93 FL (80-99) Mean Corpuscular Hemoglobin 29.8 PG (27.0-31.0) Mean Corpuscular Hemoglobin Concent 32.0 G/DL (32.0-36.0) Red Cell Distribution Width 15.0 % (11.6-14.8) H Platelet Count 73 K/UL (150-450) L Mean Platelet Volume 10.3 FL (6.5-10.1) H Neutrophils (%) (Auto) % (45.0-75.0) Lymphocytes (%) (Auto) % (20.0-45.0) Monocytes (%) (Auto) % (1.0-10.0) Eosinophils (%) (Auto) % (0.0-3.0) Basophils (%) (Auto) % (0.0-2.0) Sodium Level 135 MMOL/L (136-145) L Potassium Level 4.6 MMOL/L (3.5-5.1) Chloride Level 103 MMOL/L (98-107) Carbon Dioxide Level 22 MMOL/L (21-32) Anion Gap 10 mmol/L (5-15) Blood Urea Nitrogen 26 mg/dL (7-18) H Creatinine 1.5 MG/DL (0.55-1.30) H Estimat Glomerular Filtration Rate 48.2 mL/min (>60) Glucose Level 344 MG/DL (74-106) #H Uric Acid 7.7 MG/DL (2.6-7.2) H Calcium Level 8.6 MG/DL (8.5-10.1) Phosphorus Level 2.7 MG/DL (2.5-4.9) Magnesium Level 1.8 MG/DL (1.8-2.4) Total Bilirubin 1.0 MG/DL (0.2-1.0) Aspartate Amino Transf (AST/SGOT) 35 U/L (15-37) Alanine Aminotransferase (ALT/SGPT) 43 U/L (12-78) Alkaline Phosphatase 267 U/L (46-116) H Ammonia 67 umol/L (11-32) H Pro-B-Type Natriuretic Peptide 1158 pg/mL (0-125) H Total Protein 7.5 G/DL (6.4-8.2) Albumin 3.0 G/DL (3.4-5.0) L Globulin 4.5 g/dL Albumin/Globulin Ratio 0.7 (1.0-2.7) L Intake and Output 10/01/19 10/02/19 19:00 07:00 Intake Total 940 ml 1150 ml Output Total 1400 ml Balance -460 ml 1150 ml Intake Oral 140 ml 600 ml IV Total 800 ml 550 ml Output Urine Total 1400 ml # Voids 3 5 Objective General Appearance: WD/WN, no apparent distress EENT: normal ENT inspection Cardiovascular: normal rate, regular rhythm Respiratory/Chest: normal breath sounds, no respiratory distress Abdomen: soft 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 Patient was dehydrated upon presentation #Acute Renal Failure, no baseline to compare --> to be secondary to dehydration , improving with fluids #DMII, uncontrolled w/ A1C above 12 #Questionable Liver CA ( HCC?), w/ associated blood dyscrasias, elevated ammonia , pending PT/INR, + Transaminitis, Coagulopathies --> ultrasound with nodular soft tile setter #Opacified Sinus; presently not concerned for aggressive or invasive infection #HLD Plan Consult to Nephro and GI Syncope 2/2 Dehydration Renal ultrasound noted with nodular liver Gentle IVF @ 50 cc/hr, Wang Cath, kidneys normal on ultrasound Weight based insulin dosing, goal blood sugar less than 180 while inpatient, adjust prn--> hold Judson-Inhibitor for now given renal function Lactulose TIID+ Rifaximin, no signs of developing encephalopathy Obtain and reconcile home medications Initiate Statin, monitor liver enzymes GI ppx; Avoid chemical DVT at this time 2/2 thrombocytopenia Diet as tolerated 10/01: Obtain records from outside facility; PT eval. Med surg downgrade. DC planning w/ HH. Sheryl Mireles D.O. Oct 02, 2019 11:39
--- NOTE | 2019-10-02 11:45 | NUR ---
NURSE NOTES: TRADE SHOW COORDINATOR Shaw is aware about BS 460, ordered to continue with placed orders, she will F/U with Dr Hayes, noted and carried out. will continue to monitor.
--- NOTE | 2019-10-02 11:48 | NUR ---
DISCHARGE PLANNING HOME HEALTH ORDER NOTED NOT AWARE OF ANY HOME HEALTH'S THAT ACCEPT [facility]
[2019-10-02 12:00] VITALS: BP 150/84
[2019-10-02] MEDS: guaiFENesin /DM 10ml syrup ORAL PRN ×2 (12:03→17:11)
--- NOTE | 2019-10-02 12:15 | NUR ---
NURSE NOTES: RN asked pt to OBTAIN MEDICAL RECORD FROM [facility]ARD[facility], pt called and RN spoke with her and she stated she will bring us information in the afternoon. will continue to monitor.
--- NOTE | 2019-10-02 12:27 | Nephrology Progress Note ---
Assessment/Plan Problem List: (1) Acute renal failure Assessment: Acute on chronic (2) Hyperglycemia Assessment: Diabetes mellitus [id number], hemoglobin A1c of 12 (3) Syncope (4) Hyperkalemia (5) Increased ammonia level Assessment This 59-year-old male presents with syncopal episode Hyperglycemia with a blood sugar of over 550 Renal failure which is most likely acute superimposed on chronic renal failure Hyperkalemia which partly secondary to dehydration and or may be related to type IV renal tubular acidosis and or may be related to the medication that the patient has been taking at home however no list is available at this time History of diabetes mellitus, patient have 4+ sugar in the urine and proteinuria History of hypertension Vague history of liver cancer Plan Discussed with RN, patient more compliant with medication today. Renal parameters stable, continue per consultants Patient full code and remains on telemetry Keep the blood sugar and blood pressure in check Check orthostatics Monitor renal parameters Avoid nephrotoxic's Med list reviewed Per orders Subjective ROS Limited/Unobtainable: No Constitutional: Reports: malaise Objective Objective Last 24 Hour Vital Signs Date Time Temp Pulse Resp B/P (MAP) Pulse Ox O2 Delivery O2 Flow Rate FiO2 10/02/19 09:00 84 90 100 10/02/19 09:00 Room Air 10/02/19 08:00 98.1 18 133/83 (100) 98 10/02/19 07:44 86 10/02/19 04:00 Room Air 10/02/19 04:00 98.3 20 137/86 (103) 99 10/02/19 04:00 96 10/02/19 00:00 97.9 18 106/62 (77) 97 10/02/19 00:00 Room Air 10/02/19 00:00 93 10/01/19 21:00 Room Air 10/01/19 20:00 99.1 84 18 138/81 (100) 99 10/01/19 20:00 75 10/01/19 20:00 81 84 87 10/01/19 16:00 98.6 76 18 148/82 (104) 100 10/01/19 15:10 65 10/01/19 15:00 76 78 85 Intake and Output 10/01/19 10/02/19 19:00 07:00 Intake Total 940 ml 1150 ml Output Total 1400 ml Balance -460 ml 1150 ml Intake Oral 140 ml 600 ml IV Total 800 ml 550 ml Output Urine Total 1400 ml # Voids 3 5 Laboratory Tests 10/02/19 04:50: White Blood Count 5.5, Red Blood Count 3.97L, Hemoglobin 11.8L, Hematocrit 36.9L , Mean Corpuscular Volume 93, Mean Corpuscular Hemoglobin 29.8, Mean Corpuscular Hemoglobin Concent 32.0, Red Cell Distribution Width 15.0H, Platelet Count 73L, Mean Platelet Volume 10.3H, Neutrophils (%) (Auto) , Lymphocytes (%) (Auto) , Monocytes (%) (Auto) , Eosinophils (%) (Auto) , Basophils (%) (Auto) , Sodium Level 135L, Potassium Level 4.6, Chloride Level 103, Carbon Dioxide Level 22, Anion Gap 10, Blood Urea Nitrogen 26H, Creatinine 1.5H, Estimat Glomerular Filtration Rate 48.2, Glucose Level 344#H, Uric Acid 7.7H, Calcium Level 8.6, Phosphorus Level 2.7, Magnesium Level 1.8, Total Bilirubin 1.0, Aspartate Amino Transf (AST/SGOT) 35, Alanine Aminotransferase ( ALT/SGPT) 43, Alkaline Phosphatase 267H, Ammonia 67H, Pro-B-Type Natriuretic Peptide 1158H, Total Protein 7.5, Albumin 3.0L, Globulin 4.5, Albumin/Globulin Ratio 0.7L Height (Feet): 5 Height (Inches): 8.00 Weight (Pounds): 170 General Appearance: no apparent distress Cardiovascular: tachycardia Respiratory/Chest: decreased breath sounds Abdomen: distended Objective No change Kali Carrero MD Oct 02, 2019 12:27
--- NOTE | 2019-10-02 13:00 | NUR ---
PT Evaluation M.D. order received. PT evalutaion and treatment completed, pls see assessment/intervention for details. Patient participated with transfers and gait with SBA x 75 ft with IV pole in tow. Patient with slight sway from straight path. Patient will benefit from skilled PT to work on strength, balance and gait stability without A.D. Patient reports has a SPC at home but has not used it recently. Patient is safe to transfer OOB with nursing supervision. Paient to be seen 5x/wk daily for length of stay. Thank you for this referral.
--- NOTE | 2019-10-02 13:52 | NUR ---
NURSE NOTES: Pt signed authorization paper to release MEDICAL RECORD FROM [facility].
--- NOTE | 2019-10-02 15:00 | Consultation ---
History of Present Illness General Date patient seen: Oct 02, 2019 Reason for Hospitalization: Syncope Present Illness HPI This is a very pleasant 59-year-old male with history of liver cancer as per patient who is not received chemotherapy as he states it was told to him it was too small that presented with syncopal episode was identified to have abnormal LFTs given history and current findings surgery called to evaluate and assist with care patient seen, patient evaluated, chart reviewed. Abdominal distention noted no abdominal pain currently no nausea vomiting fever chills. Imaging reviewed. Allergies: Coded Allergies: No Known Allergies (Unverified , 09/30/19) COVID-19 Screening Contact w/high risk pt: No Recent Travel to affected area: No Experienced COVID-19 symptoms?: No Medication History Unable to Obtain Active Prescriptions or Reported Meds Patient History History Provided By: Patient, Medical Record, PMD Healthcare decision maker Resuscitation status Advanced Directive on File Past Medical/Surgical History Past Medical/Surgical History: (1) Hyperkalemia (2) Acute renal failure (3) Hyperglycemia (4) Syncope (5) Increased ammonia level Review of Systems Review of Symptoms General ROS: no weight loss or fever Psychological ROS: no depression or mood changes, no memory loss Ophthalmic ROS: no visual changes or eye irritation ENT ROS: no nasal congestion, hearing loss, dizziness Allergy and Immunology ROS: no allergic symptoms or urticaria Hematological and Lymphatic ROS: no swollen glands, unusual bleeding or bruising Endocrine ROS: no polyuria, polydipsia, weight changes, temperature intolerance Respiratory ROS: no cough, shortness of breath, or wheezing Cardiovascular ROS: no chest pain or dyspnea on exertion Gastrointestinal ROS: denies abdominal pain, bright red blood in stool. Musculoskeletal ROS: no myalgias or arthralgias Neurological ROS: no TIA or stroke symptoms Dermatological ROS: no new or changing skin lesions, rashes or pruritis Physical Exam Physical Exam General appearance: alert, cooperative, no distress, appears stated age Head: Normocephalic, without obvious abnormality, atraumatic Eyes: conjunctivae/corneas clear. PERRL, EOM's intact. Fundi benign Throat: Lips, mucosa, and tongue normal. Teeth and gums normal Neck: supple, symmetrical, trachea midline, no adenopathy, thyroid: not enlarged, symmetric, no tenderness/mass/nodules, no carotid bruit and no JVD Lungs: clear to auscultation bilaterally Heart: regular rate and rhythm, S1, S2 normal, no murmur, click, rub or gallop Abdomen: soft, non-tender. Distended bowel sounds normal. No masses, no organomegaly Extremities: extremities normal, atraumatic, no cyanosis or edema Pulses: 2+ and symmetric Skin: Skin color, texture, turgor normal. No rashes or lesions Neurologic: Grossly normal Last 24 Hour Vital Signs Date Time Temp Pulse Resp B/P (MAP) Pulse Ox O2 Delivery O2 Flow Rate FiO2 10/02/19 12:00 98.4 91 20 150/84 (106) 97 10/02/19 11:33 90 10/02/19 09:00 84 90 100 10/02/19 09:00 Room Air 10/02/19 08:00 98.1 18 133/83 (100) 98 10/02/19 07:44 86 10/02/19 04:00 Room Air 10/02/19 04:00 98.3 20 137/86 (103) 99 10/02/19 04:00 96 10/02/19 00:00 97.9 18 106/62 (77) 97 10/02/19 00:00 Room Air 10/02/19 00:00 93 10/01/19 21:00 Room Air 10/01/19 20:00 99.1 84 18 138/81 (100) 99 10/01/19 20:00 75 10/01/19 20:00 81 84 87 10/01/19 16:00 98.6 76 18 148/82 (104) 100 10/01/19 15:10 65 10/01/19 15:00 76 78 85 Intake and Output 10/01/19 10/02/19 19:00 07:00 Intake Total 940 ml 1150 ml Output Total 1400 ml Balance -460 ml 1150 ml Intake Oral 140 ml 600 ml IV Total 800 ml 550 ml Output Urine Total 1400 ml # Voids 3 5 Laboratory Tests Test 10/02/19 04:50 White Blood Count 5.5 K/UL (4.8-10.8) Red Blood Count 3.97 M/UL (4.70-6.10) L Hemoglobin 11.8 G/DL (14.2-18.0) L Hematocrit 36.9 % (42.0-52.0) L Mean Corpuscular Volume 93 FL (80-99) Mean Corpuscular Hemoglobin 29.8 PG (27.0-31.0) Mean Corpuscular Hemoglobin Concent 32.0 G/DL (32.0-36.0) Red Cell Distribution Width 15.0 % (11.6-14.8) H Platelet Count 73 K/UL (150-450) L Mean Platelet Volume 10.3 FL (6.5-10.1) H Neutrophils (%) (Auto) % (45.0-75.0) Lymphocytes (%) (Auto) % (20.0-45.0) Monocytes (%) (Auto) % (1.0-10.0) Eosinophils (%) (Auto) % (0.0-3.0) Basophils (%) (Auto) % (0.0-2.0) Sodium Level 135 MMOL/L (136-145) L Potassium Level 4.6 MMOL/L (3.5-5.1) Chloride Level 103 MMOL/L (98-107) Carbon Dioxide Level 22 MMOL/L (21-32) Anion Gap 10 mmol/L (5-15) Blood Urea Nitrogen 26 mg/dL (7-18) H Creatinine 1.5 MG/DL (0.55-1.30) H Estimat Glomerular Filtration Rate 48.2 mL/min (>60) Glucose Level 344 MG/DL (74-106) #H Uric Acid 7.7 MG/DL (2.6-7.2) H Calcium Level 8.6 MG/DL (8.5-10.1) Phosphorus Level 2.7 MG/DL (2.5-4.9) Magnesium Level 1.8 MG/DL (1.8-2.4) Total Bilirubin 1.0 MG/DL (0.2-1.0) Aspartate Amino Transf (AST/SGOT) 35 U/L (15-37) Alanine Aminotransferase (ALT/SGPT) 43 U/L (12-78) Alkaline Phosphatase 267 U/L (46-116) H Ammonia 67 umol/L (11-32) H Pro-B-Type Natriuretic Peptide 1158 pg/mL (0-125) H Total Protein 7.5 G/DL (6.4-8.2) Albumin 3.0 G/DL (3.4-5.0) L Globulin 4.5 g/dL Albumin/Globulin Ratio 0.7 (1.0-2.7) L Height (Feet): 5 Height (Inches): 8.00 Weight (Pounds): 170 Medications Current Medications Medications (Trade) Dose Ordered Sig/Dewayne Route PRN Reason Start Time Stop Time Status Last Admin Dose Admin Atorvastatin Calcium (Lipitor) 40 mg BEDTIME ORAL 10/01/19 21:00 12/30/19 20:59 10/01/19 21:03 Dextrose (Dextrose 50%) 25 ml Q30M PRN IV Hypoglycemia 10/01/19 01:45 12/30/19 01:44 Dextrose (Dextrose 50%) 50 ml Q30M PRN IV Hypoglycemia 10/01/19 01:45 12/30/19 01:44 Docusate Sodium (Colace) 100 mg THREE TIMES A DAY ORAL 10/01/19 09:00 10/31/19 08:59 10/02/19 12:02 Guaifenesin/ Dextromethorphan (Robitussin DM Syrup) 10 ml Q4H PRN ORAL For Cough 10/02/19 10:45 12/31/19 10:44 10/02/19 12:03 Hydralazine HCl (Apresoline) 25 mg Q4H PRN ORAL Blood pressure over 160 systol 09/30/19 19:30 12/29/19 19:29 Insulin Aspart (NovoLOG) BEFORE MEALS AND HS SUBQ 10/02/19 11:30 12/31/19 11:29 10/02/19 12:02 Insulin Aspart (NovoLOG) 5 units NOVOTIAC SUBQ 10/02/19 11:50 12/31/19 11:49 10/02/19 12:01 Insulin Detemir (Levemir) 20 units BID SUBQ 10/03/19 18:00 12/30/19 10:29 Lactulose (Cephulac) 30 gm THREE TIMES A DAY ORAL 10/01/19 09:00 10/31/19 08:59 10/02/19 12:02 Metoclopramide HCl (Reglan) 5 mg TIAC ORAL 10/01/19 06:30 10/31/19 06:29 10/02/19 12:02 Pantoprazole (Protonix) 40 mg EVERY 12 HOURS ORAL 6/14/20 21:00 10/30/19 20:59 10/02/19 08:27 Rifaximin (Xifaxan) 550 mg EVERY 12 HOURS ORAL 10/01/19 09:00 10/08/19 08:59 10/02/19 08:26 Sodium Chloride 1,000 ml @ 50 mls/hr Q20H IV 09/30/19 19:30 10/30/19 19:29 10/01/19 23:24 Tamsulosin HCl (Flomax) 0.4 mg BEDTIME ORAL 09/30/19 21:00 10/30/19 20:59 10/01/19 21:03 Assessment/Plan Problem List: (1) Abnormal LFTs Assessment & Plan: 59-year-old male syncopal episode currently admitted identified to have abnormal alkaline phosphatase is significantly elevated. Ultrasound reviewed exam reviewed patient distended fluid. As per patient history liver cancer but states he was told it is too small and did not need chemotherapy. Has been following up outpatient with his physicians. No acute surgical intervention recommended at this time. Patient known history and prior follow-up and work-up outpatient has been done Do not recommend repeating this at this time Hepatic stable improving Okay to DC from surgical standpoint Thank you for let me participate in patient's care no acute surgical invention necessary at this time ICD Codes: R94.5 - Abnormal results of liver function studies SNOMED: 323962378 (2) History of liver cancer Assessment & Plan: Liver: The liver surface is nodular. Liver is mildly heterogeneous. Gallbladder: The gallbladder is normal. No stones are visualized. The wall is not thickened. Common bile duct: Normal in size. Pancreas: The visualized portion of pancreas is normal in echogenicity. There are no masses. Kidneys: The kidneys are normal in size and echogenicity. There is no hydronephrosis. Spleen: Enlarged measuring 13.6 cm. Aorta: The visualized portion of the aorta is normal in caliber. The proximal aorta is obscured. IVC: The demonstrated portion of the inferior vena cava is normal. There is a small amount of ascites. Impression: Cirrhosis. Splenomegaly. Small amount of ascites. ICD Codes: Z85.05 - Personal history of malignant neoplasm of liver SNOMED: 65706463, 332754620 Michael Danielle Oct 02, 2019 15:00
[2019-10-02 16:00] VITALS: BP 146/89
--- NOTE | 2019-10-02 17:29 | NUR ---
NURSE NOTES: bring information about hepatocellular carcinoma with name Elicia Philip Padilla, pt and confirmed that it is his name. these papers is checked by MARIO Chan and put in pt's chart.
[2019-10-02] MEDS ORDERED: HydrALAZINE 25mg tab ORAL PRN (18:00)
[2019-10-02] MEDS ORDERED: Docusate 100mg cap ORAL SCH (18:00)
[2019-10-02] MEDS ORDERED: Lactulose 20gm/30ml UDC ORAL SCH (18:00)
--- NOTE | 2019-10-02 18:05 | NUR ---
NURSE NOTES: pt is stable, V/S stable, iv is intact, pt stated a bag of his clothes isn't in room, RN checked in room and ER and asked security but couldn't find. pt is transferred to 406 bed 1, report given to KATINA Stark, endorsed to show paperwork for liver cancer to Dr Ramos and F/U for clothes. Endorsed plan of care. Addendum: 10/02/19 at 1812 by Brook Villeda RN skin is intact.
--- NOTE | 2019-10-02 19:13 | NUR ---
HAND-OFF: Report given to Lexii AMBRIZ. Endorsed plan of care.
[2019-10-02 20:00] VITALS: BP 139/87
--- NOTE | 2019-10-02 20:00 | NUR ---
NURSE NOTES: Received patient awake in bed, AOx4, no c/o pain at this time, no s/s of acute distress. IV access intact running IVF maintenance, site asymptomatic, dressing dry and intact. Bed low and locked, urinal at the bedside, patient wearing non slip socks. Patient declines SCDs at this time, all other needs attended to.
[2019-10-02] MEDS ORDERED: Atorvastatin 20mg tab ORAL SCH (21:00)
[2019-10-02] MEDS ORDERED: Tamsulosin 0.4mg cap ORAL SCH (21:00)
[2019-10-02] MEDS ORDERED: guaiFENesin /DM 10ml syrup ORAL PRN (21:30)
[2019-10-03] VITALS: BP 115/79
[2019-10-03 04:00] VITALS: BP 111/77
[2019-10-03] MEDS: NovoLOG Insulin Flexpen SUBQ SCH ×4 (06:27→11:50)
[2019-10-03 06:32] LABS: HEMATOCRIT 36.7 % (42.0-52.0); HEMOGLOBIN 11.8 G/DL (14.2-18.0); MEAN CORPUSCULAR VOLUME 93 FL (80-99); PLATELET COUNT 76 K/UL (150-450); RED BLOOD COUNT 3.95 M/UL (4.70-6.10); RED CELL DISTRIBUTION WIDTH 14.6 % (11.6-14.8); WHITE BLOOD COUNT 5.1 K/UL (4.8-10.8)
--- NOTE | 2019-10-03 07:12 | NUR ---
HAND-OFF: Report given to KATINA Drake.
[2019-10-03 07:54] LABS: ALANINE AMINOTRANSFERASE 49 U/L (12-78); ALBUMIN 2.9 G/DL (3.4-5.0); ALKALINE PHOSPHATASE 256 U/L (46-116); ANION GAP 12 mmol/L (5-15); BILIRUBIN,TOTAL 1.4 MG/DL (0.2-1.0); BLOOD UREA NITROGEN 21 mg/dL (7-18); CALCIUM 8.7 MG/DL (8.5-10.1); CARBON DIOXIDE 21 MMOL/L (21-32); CHLORIDE 102 MMOL/L (98-107); CREATININE 1.4 MG/DL (0.55-1.30); PHOSPHORUS 3.1 MG/DL (2.5-4.9); POTASSIUM 4.1 MMOL/L (3.5-5.1); SODIUM 135 MMOL/L (136-145)
[2019-10-03 08:00] VITALS: BP 120/78
[2019-10-03 08:12] LABS: ASPARTATE AMINO TRANSFERASE 49 U/L (15-37); BILIRUBIN,DIRECT 0.5 MG/DL (0.0-0.3)
--- NOTE | 2019-10-03 08:13 | NUR ---
NURSE NOTES: Report received from KATINA Martínez. Patient received awake in bed, alert and oriented x 4, no c/o any pain or discomfort at this time, no SOB, bed in low position with breaks engaged and alarm on, IV line on left AC intact and in place, will continue to monitor for changes and proceed with plan of care, call light within reach at all times
--- NOTE | 2019-10-03 08:26 | General Progress Note ---
Assessment/Plan Problem List: (1) Abnormal LFTs ICD Codes: R94.5 - Abnormal results of liver function studies SNOMED: 436756707 (2) History of liver cancer ICD Codes: Z85.05 - Personal history of malignant neoplasm of liver SNOMED: 25355284, 205227317 (3) Increased ammonia level ICD Codes: R79.89 - Other specified abnormal findings of blood chemistry SNOMED: 06117619, 357211501, 400300722 (4) Hyperglycemia ICD Codes: R73.9 - Hyperglycemia, unspecified SNOMED: 63643548 Assessment/Plan: on oral chemo therapy per patient no active stress at this time cont current meds needs out patient fu with oncology Subjective Allergies: Coded Allergies: No Known Allergies (Unverified , 09/30/19) Objective Last 24 Hour Vital Signs Date Time Temp Pulse Resp B/P (MAP) Pulse Ox O2 Delivery O2 Flow Rate FiO2 10/03/19 08:00 98.1 92 20 120/78 (92) 98 10/03/19 04:00 97.9 98 18 111/77 (88) 98 10/03/19 00:00 97.1 100 18 115/79 (91) 98 10/02/19 21:50 77 76 89 10/02/19 21:49 Room Air 10/02/19 20:00 98.2 86 19 139/87 (104) 99 10/02/19 16:00 97.5 88 18 146/89 (108) 100 10/02/19 15:35 90 10/02/19 12:00 98.4 91 20 150/84 (106) 97 10/02/19 11:33 90 10/02/19 09:00 84 90 100 10/02/19 09:00 Room Air Intake and Output 10/02/19 10/03/19 19:00 07:00 Intake Total 1110 ml Balance 1110 ml Intake Oral 360 ml IV Total 750 ml # Voids 2 2 # Bowel Movements 2 Laboratory Tests 10/03/19 05:40: White Blood Count 5.1, Red Blood Count 3.95L, Hemoglobin 11.8L, Hematocrit 36.7L , Mean Corpuscular Volume 93, Mean Corpuscular Hemoglobin 29.9, Mean Corpuscular Hemoglobin Concent 32.3, Red Cell Distribution Width 14.6, Platelet Count 76L, Mean Platelet Volume 10.3H, Neutrophils (%) (Auto) , Lymphocytes (%) (Auto) , Monocytes (%) (Auto) , Eosinophils (%) (Auto) , Basophils (%) (Auto) , Neutrophils % (Manual) [Pending], Lymphocytes % (Manual) [Pending], Platelet Estimate [Pending], Platelet Morphology [Pending], Sodium Level 135L, Potassium Level 4.1, Chloride Level 102, Carbon Dioxide Level 21, Anion Gap 12, Blood Urea Nitrogen 21H, Creatinine 1.4H, Estimat Glomerular Filtration Rate 52.2, Glucose Level 220#H, Calcium Level 8.7, Phosphorus Level 3.1, Magnesium Level 1.8, Total Bilirubin 1.4H, Direct Bilirubin 0.5H, Aspartate Amino Transf (AST/ SGOT) 49H, Alanine Aminotransferase (ALT/SGPT) 49, Alkaline Phosphatase 256H, Total Protein [Pending], Albumin 2.9L, Globulin [Pending] Height (Feet): 5 Height (Inches): 8.00 Weight (Pounds): 169 General Appearance: alert EENT: normal ENT inspection Neck: supple Cardiovascular: normal rate Respiratory/Chest: decreased breath sounds Abdomen: normal bowel sounds, non tender, soft Extremities: non-tender Maximilian Hernandes MD Oct 03, 2019 08:26
[2019-10-03] MEDS: Docusate 100mg cap ORAL SCH ×2 (09:26→12:35)
[2019-10-03] MEDS: Lactulose 20gm/30ml UDC ORAL SCH ×2 (09:26→12:35)
--- NOTE | 2019-10-03 10:10 | Nephrology Progress Note ---
Assessment/Plan Problem List: (1) Acute renal failure Assessment: Acute on chronic (2) Hyperglycemia Assessment: Diabetes mellitus [id number], hemoglobin A1c of 12 (3) Syncope (4) Hyperkalemia (5) Increased ammonia level Assessment This 59-year-old male presents with syncopal episode Hyperglycemia with a blood sugar of over 550 Renal failure which is most likely acute superimposed on chronic renal failure Hyperkalemia which partly secondary to dehydration and or may be related to type IV renal tubular acidosis and or may be related to the medication that the patient has been taking at home however no list is available at this time History of diabetes mellitus, patient have 4+ sugar in the urine and proteinuria History of hypertension Vague history of liver cancer Plan October 02: Remains stable from renal standpoint of view. Labs reviewed. Medication reviewed. Discussed with RN, patient more compliant with medication today. Renal parameters stable, continue per consultants Patient full code and remains on telemetry Keep the blood sugar and blood pressure in check Check orthostatics Monitor renal parameters Avoid nephrotoxic's Med list reviewed Per orders Subjective ROS Limited/Unobtainable: No Constitutional: Reports: malaise Objective Objective Last 24 Hour Vital Signs Date Time Temp Pulse Resp B/P (MAP) Pulse Ox O2 Delivery O2 Flow Rate FiO2 10/03/19 09:00 70 76 89 10/03/19 09:00 Room Air 10/03/19 08:00 98.1 92 20 120/78 (92) 98 10/03/19 04:00 97.9 98 18 111/77 (88) 98 10/03/19 00:00 97.1 100 18 115/79 (91) 98 10/02/19 21:50 77 76 89 10/02/19 21:49 Room Air 10/02/19 20:00 98.2 86 19 139/87 (104) 99 10/02/19 16:00 97.5 88 18 146/89 (108) 100 10/02/19 15:35 90 10/02/19 12:00 98.4 91 20 150/84 (106) 97 10/02/19 11:33 90 Intake and Output 10/02/19 10/03/19 19:00 07:00 Intake Total 1110 ml Balance 1110 ml Intake Oral 360 ml IV Total 750 ml # Voids 2 2 # Bowel Movements 2 Current Medications Medications (Trade) Dose Ordered Sig/Dewayne Route PRN Reason Start Time Stop Time Status Last Admin Dose Admin Atorvastatin Calcium (Lipitor) 40 mg BEDTIME ORAL 10/02/19 21:00 12/30/19 20:59 10/02/19 20:21 Dextrose (Dextrose 50%) 25 ml Q30M PRN IV Hypoglycemia 10/02/19 17:45 12/30/19 01:44 Dextrose (Dextrose 50%) 50 ml Q30M PRN IV Hypoglycemia 10/02/19 17:45 12/30/19 01:44 Docusate Sodium (Colace) 100 mg THREE TIMES A DAY ORAL 10/03/19 09:00 11/02/19 08:59 10/03/19 09:26 Guaifenesin/ Dextromethorphan (Robitussin DM Syrup) 10 ml Q4H PRN ORAL For Cough 10/02/19 21:30 12/31/19 21:29 Hydralazine HCl (Apresoline) 25 mg Q4H PRN ORAL Blood pressure over 160 systol 10/02/19 18:00 12/29/19 17:59 Insulin Aspart (NovoLOG) BEFORE MEALS AND HS SUBQ 10/02/19 21:00 12/31/19 11:29 10/03/19 06:27 Insulin Aspart (NovoLOG) 5 units NOVOTIAC SUBQ 10/03/19 06:30 12/31/19 11:49 10/03/19 06:28 Insulin Detemir (Levemir) 20 units BID SUBQ 10/03/19 18:00 12/30/19 10:29 Lactulose (Cephulac) 30 gm THREE TIMES A DAY ORAL 10/03/19 09:00 11/02/19 08:59 10/03/19 09:26 Metoclopramide HCl (Reglan) 5 mg TIAC ORAL 10/03/19 06:30 10/31/19 06:29 10/03/19 06:26 Pantoprazole (Protonix) 40 mg EVERY 12 HOURS ORAL 10/02/19 21:00 10/30/19 20:59 10/03/19 09:26 Rifaximin (Xifaxan) 550 mg EVERY 12 HOURS ORAL 10/02/19 21:00 10/08/19 08:59 10/03/19 09:26 Sodium Chloride 1,000 ml @ 50 mls/hr Q20H IV 10/02/19 17:30 10/30/19 19:29 10/02/19 18:37 Tamsulosin HCl (Flomax) 0.4 mg BEDTIME ORAL 10/02/19 21:00 10/30/19 20:59 10/02/19 20:20 Laboratory Tests 10/03/19 05:40: White Blood Count 5.1, Red Blood Count 3.95L, Hemoglobin 11.8L, Hematocrit 36.7L , Mean Corpuscular Volume 93, Mean Corpuscular Hemoglobin 29.9, Mean Corpuscular Hemoglobin Concent 32.3, Red Cell Distribution Width 14.6, Platelet Count 76L, Mean Platelet Volume 10.3H, Neutrophils (%) (Auto) , Lymphocytes (%) (Auto) , Monocytes (%) (Auto) , Eosinophils (%) (Auto) , Basophils (%) (Auto) , Neutrophils % (Manual) [Pending], Lymphocytes % (Manual) [Pending], Platelet Estimate [Pending], Platelet Morphology [Pending], Sodium Level 135L, Potassium Level 4.1, Chloride Level 102, Carbon Dioxide Level 21, Anion Gap 12, Blood Urea Nitrogen 21H, Creatinine 1.4H, Estimat Glomerular Filtration Rate 52.2, Glucose Level 220#H, Calcium Level 8.7, Phosphorus Level 3.1, Magnesium Level 1.8, Total Bilirubin 1.4H, Direct Bilirubin 0.5H, Aspartate Amino Transf (AST/ SGOT) 49H, Alanine Aminotransferase (ALT/SGPT) 49, Alkaline Phosphatase 256H, Total Protein 7.7, Albumin 2.9L, Globulin 4.8 Height (Feet): 5 Height (Inches): 8.00 Weight (Pounds): 169 General Appearance: no apparent distress Cardiovascular: tachycardia Respiratory/Chest: decreased breath sounds Abdomen: soft, distended Objective No change Kali Carrero MD Oct 03, 2019 10:10
--- NOTE | 2019-10-03 10:45 | NUR ---
CASE MANAGEMENT:REVIEW SI;SYNCOPE. HYPONATREMIA. DEHYDRATION ACUTE RENAL FAILURE. ELEVATED AMMONIA LEVEL. 98.1 100 20 120/78 98% ON NA 135 BUN 21/1.4 T-BILI 1.4 ASST 49 ALB 2.9 IS;REGLAN PO TIAC PROTONIX PO Q12 LACTULOSE PO TID MED SURG STATUS DCP;PATIENT IS FROM HOME PLAN:WILL REQUIRE OUTPATIENT ONCOLOGY FOLLOW UP
--- NOTE | 2019-10-03 11:40 | Internal Med Progress Note ---
Subjective Date of Service: Oct 03, 2019 Physician Name Sheryl Mireles Attending Physician Nasir Hayes MD Current Medications Medications (Trade) Dose Ordered Sig/Dewayne Route PRN Reason Start Time Stop Time Status Last Admin Dose Admin Atorvastatin Calcium (Lipitor) 40 mg BEDTIME ORAL 10/02/19 21:00 12/30/19 20:59 10/02/19 20:21 Dextrose (Dextrose 50%) 25 ml Q30M PRN IV Hypoglycemia 10/02/19 17:45 12/30/19 01:44 Dextrose (Dextrose 50%) 50 ml Q30M PRN IV Hypoglycemia 10/02/19 17:45 12/30/19 01:44 Docusate Sodium (Colace) 100 mg THREE TIMES A DAY ORAL 10/03/19 09:00 11/02/19 08:59 10/03/19 09:26 Guaifenesin/ Dextromethorphan (Robitussin DM Syrup) 10 ml Q4H PRN ORAL For Cough 10/02/19 21:30 12/31/19 21:29 Hydralazine HCl (Apresoline) 25 mg Q4H PRN ORAL Blood pressure over 160 systol 10/02/19 18:00 12/29/19 17:59 Insulin Aspart (NovoLOG) BEFORE MEALS AND HS SUBQ 10/02/19 21:00 12/31/19 11:29 10/03/19 06:27 Insulin Aspart (NovoLOG) 5 units NOVOTIAC SUBQ 10/03/19 06:30 12/31/19 11:49 10/03/19 06:28 Insulin Detemir (Levemir) 30 units BID SUBQ 10/03/19 18:00 12/30/19 10:29 UNV Lactulose (Cephulac) 30 gm THREE TIMES A DAY ORAL 10/03/19 09:00 11/02/19 08:59 10/03/19 09:26 Metoclopramide HCl (Reglan) 5 mg TIAC ORAL 10/03/19 06:30 10/31/19 06:29 10/03/19 06:26 Pantoprazole (Protonix) 40 mg EVERY 12 HOURS ORAL 10/02/19 21:00 10/30/19 20:59 10/03/19 09:26 Rifaximin (Xifaxan) 550 mg EVERY 12 HOURS ORAL 10/02/19 21:00 10/08/19 08:59 10/03/19 09:26 Sodium Chloride 1,000 ml @ 50 mls/hr Q20H IV 10/02/19 17:30 10/30/19 19:29 10/02/19 18:37 Tamsulosin HCl (Flomax) 0.4 mg BEDTIME ORAL 10/02/19 21:00 10/30/19 20:59 10/02/19 20:20 Allergies: Coded Allergies: No Known Allergies (Unverified , 09/30/19) Subjective Patient is doing well; PT note reviewed. Can likely be discharged today w/ HH. F /U with outpatient Heme/Onc. Objective Last Vital Signs Date Time Temp Pulse Resp B/P (MAP) Pulse Ox O2 Delivery O2 Flow Rate FiO2 10/03/19 09:00 70 76 89 10/03/19 09:00 Room Air 10/03/19 08:00 98.1 20 120/78 (92) 98 Laboratory Tests Test 10/03/19 05:40 White Blood Count 5.1 K/UL (4.8-10.8) Red Blood Count 3.95 M/UL (4.70-6.10) L Hemoglobin 11.8 G/DL (14.2-18.0) L Hematocrit 36.7 % (42.0-52.0) L Mean Corpuscular Volume 93 FL (80-99) Mean Corpuscular Hemoglobin 29.9 PG (27.0-31.0) Mean Corpuscular Hemoglobin Concent 32.3 G/DL (32.0-36.0) Red Cell Distribution Width 14.6 % (11.6-14.8) Platelet Count 76 K/UL (150-450) L Mean Platelet Volume 10.3 FL (6.5-10.1) H Neutrophils (%) (Auto) % (45.0-75.0) Lymphocytes (%) (Auto) % (20.0-45.0) Monocytes (%) (Auto) % (1.0-10.0) Eosinophils (%) (Auto) % (0.0-3.0) Basophils (%) (Auto) % (0.0-2.0) Differential Total Cells Counted 100 Neutrophils % (Manual) 70 % (45-75) Lymphocytes % (Manual) 27 % (20-45) Monocytes % (Manual) 2 % (1-10) Eosinophils % (Manual) 1 % (0-3) Basophils % (Manual) 0 % (0-2) Band Neutrophils 0 % (0-8) Platelet Estimate Decreased L Platelet Morphology Normal Anisocytosis 1+ Sodium Level 135 MMOL/L (136-145) L Potassium Level 4.1 MMOL/L (3.5-5.1) Chloride Level 102 MMOL/L (98-107) Carbon Dioxide Level 21 MMOL/L (21-32) Anion Gap 12 mmol/L (5-15) Blood Urea Nitrogen 21 mg/dL (7-18) H Creatinine 1.4 MG/DL (0.55-1.30) H Estimat Glomerular Filtration Rate 52.2 mL/min (>60) Glucose Level 220 MG/DL (74-106) #H Calcium Level 8.7 MG/DL (8.5-10.1) Phosphorus Level 3.1 MG/DL (2.5-4.9) Magnesium Level 1.8 MG/DL (1.8-2.4) Total Bilirubin 1.4 MG/DL (0.2-1.0) H Direct Bilirubin 0.5 MG/DL (0.0-0.3) H Aspartate Amino Transf (AST/SGOT) 49 U/L (15-37) H Alanine Aminotransferase (ALT/SGPT) 49 U/L (12-78) Alkaline Phosphatase 256 U/L (46-116) H Total Protein 7.7 G/DL (6.4-8.2) Albumin 2.9 G/DL (3.4-5.0) L Globulin 4.8 g/dL Intake and Output 10/02/19 10/03/19 19:00 07:00 Intake Total 1110 ml Balance 1110 ml Intake Oral 360 ml IV Total 750 ml # Voids 2 2 # Bowel Movements 2 Objective General Appearance: WD/WN, no apparent distress EENT: normal ENT inspection Cardiovascular: normal rate, regular rhythm Respiratory/Chest: normal breath sounds, no respiratory distress Abdomen: 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 #Opacified Sinus; presently not concerned for aggressive or invasive infection #HLD Plan Consult to Nephro and GI Syncope 2/2 Dehydration Renal ultrasound noted with nodular liver Gentle IVF @ 50 cc/hr, Wang Cath, kidneys normal on ultrasound Weight based insulin dosing, goal blood sugar less than 180 while inpatient, adjust prn--> hold Judson-Inhibitor for now given renal function Lactulose TIID+ Rifaximin, no signs of developing encephalopathy Obtain and reconcile home medications Initiate Statin, monitor liver enzymes GI ppx; Avoid chemical DVT at this time 2/2 thrombocytopenia Diet as tolerated 10/01: Obtain records from outside facility; PT eval. Med surg downgrade. DC planning w/ HH. 10/02: Adjust insulin, likely d/c . Await records Sheryl Mireles D.O. Oct 03, 2019 11:40
[2019-10-03 12:00] VITALS: BP 128/84
--- NOTE | 2019-10-03 12:32 | NUR ---
SKI TOW OPERATOR NOTE/DC PLANNING CONSULT ORDER NOTED FOR HOME HEALTH. DR VENCES INFORMED THAT D/T PATIENT MEDI-DUARTE, HOME HEALTH AGENCIES DO NOT ACCEPT PATIENTS INSURANCE.
--- NOTE | 2019-10-03 13:00 | Pulmonology Progress Note ---
Aliya Squires CUSTOMER ACCOUNT SPECIALIST 10/03/19 1300: Subjective ROS Limited/Unobtainable: No Allergies: Coded Allergies: No Known Allergies (Unverified , 09/30/19) Subjective denies SOB, no chest pain pulse ox stable on RA BS better, still not well controlled prior noted + orthostatic changes working with PT mental status improved Objective Last 24 Hour Vital Signs Date Time Temp Pulse Resp B/P (MAP) Pulse Ox O2 Delivery O2 Flow Rate FiO2 10/03/19 12:00 97.9 89 20 128/84 (99) 97 10/03/19 09:00 70 76 89 10/03/19 09:00 Room Air 10/03/19 08:00 98.1 92 20 120/78 (92) 98 10/03/19 04:00 97.9 98 18 111/77 (88) 98 10/03/19 00:00 97.1 100 18 115/79 (91) 98 10/02/19 21:50 77 76 89 10/02/19 21:49 Room Air 10/02/19 20:00 98.2 86 19 139/87 (104) 99 10/02/19 16:00 97.5 88 18 146/89 (108) 100 10/02/19 15:35 90 Intake and Output 10/02/19 10/03/19 19:00 07:00 Intake Total 1110 ml Balance 1110 ml Intake Oral 360 ml IV Total 750 ml # Voids 2 2 # Bowel Movements 2 Objective General Appearance: no apparent distress, alert, awake, responsive Lines, tubes and drains: peripheral HEENT: normocephalic, atraumatic, anicteric, mucous membranes moist Neck: non-tender, supple Respiratory/Chest: lungs clear, no respiratory distress, no accessory muscle use Cardiovascular/Chest: normal rate, regular rhythm Abdomen: normal bowel sounds, soft , mild distention, no tenderness Extremities: no calf tenderness, normal capillary refill Skin Exam: warm/dry Neurologic: no motor/sensory deficits Laboratory Tests 10/03/19 05:40: White Blood Count 5.1, Red Blood Count 3.95L, Hemoglobin 11.8L, Hematocrit 36.7L , Mean Corpuscular Volume 93, Mean Corpuscular Hemoglobin 29.9, Mean Corpuscular Hemoglobin Concent 32.3, Red Cell Distribution Width 14.6, Platelet Count 76L, Mean Platelet Volume 10.3H, Neutrophils (%) (Auto) , Lymphocytes (%) (Auto) , Monocytes (%) (Auto) , Eosinophils (%) (Auto) , Basophils (%) (Auto) , Differential Total Cells Counted 100, Neutrophils % (Manual) 70, Lymphocytes % ( Manual) 27, Monocytes % (Manual) 2, Eosinophils % (Manual) 1, Basophils % ( Manual) 0, Band Neutrophils 0, Platelet Estimate DecreasedL, Platelet Morphology Normal, Anisocytosis 1+, Sodium Level 135L, Potassium Level 4.1, Chloride Level 102, Carbon Dioxide Level 21, Anion Gap 12, Blood Urea Nitrogen 21H, Creatinine 1.4H, Estimat Glomerular Filtration Rate 52.2, Glucose Level 220 #H, Calcium Level 8.7, Phosphorus Level 3.1, Magnesium Level 1.8, Total Bilirubin 1.4H, Direct Bilirubin 0.5H, Aspartate Amino Transf (AST/SGOT) 49H, Alanine Aminotransferase (ALT/SGPT) 49, Alkaline Phosphatase 256H, Total Protein 7.7, Albumin 2.9L, Globulin 4.8 Current Medications Medications (Trade) Dose Ordered Sig/Dewayne Route PRN Reason Start Time Stop Time Status Last Admin Dose Admin Atorvastatin Calcium (Lipitor) 40 mg BEDTIME ORAL 10/02/19 21:00 12/30/19 20:59 10/02/19 20:21 Dextrose (Dextrose 50%) 25 ml Q30M PRN IV Hypoglycemia 10/02/19 17:45 12/30/19 01:44 Dextrose (Dextrose 50%) 50 ml Q30M PRN IV Hypoglycemia 10/02/19 17:45 12/30/19 01:44 Docusate Sodium (Colace) 100 mg THREE TIMES A DAY ORAL 10/03/19 09:00 11/02/19 08:59 10/03/19 12:35 Guaifenesin/ Dextromethorphan (Robitussin DM Syrup) 10 ml Q4H PRN ORAL For Cough 10/02/19 21:30 12/31/19 21:29 Hydralazine HCl (Apresoline) 25 mg Q4H PRN ORAL Blood pressure over 160 systol 10/02/19 18:00 12/29/19 17:59 Insulin Aspart (NovoLOG) BEFORE MEALS AND HS SUBQ 10/02/19 21:00 12/31/19 11:29 10/03/19 11:47 Insulin Aspart (NovoLOG) 5 units NOVOTIAC SUBQ 10/03/19 06:30 12/31/19 11:49 10/03/19 06:28 Insulin Detemir (Levemir) 30 units BID SUBQ 10/03/19 18:00 12/30/19 10:29 Lactulose (Cephulac) 30 gm THREE TIMES A DAY ORAL 10/03/19 09:00 11/02/19 08:59 10/03/19 12:35 Metoclopramide HCl (Reglan) 5 mg TIAC ORAL 10/03/19 06:30 10/31/19 06:29 10/03/19 11:45 Pantoprazole (Protonix) 40 mg EVERY 12 HOURS ORAL 10/02/19 21:00 10/30/19 20:59 10/03/19 09:26 Rifaximin (Xifaxan) 550 mg EVERY 12 HOURS ORAL 10/02/19 21:00 10/08/19 08:59 10/03/19 09:26 Sodium Chloride 1,000 ml @ 50 mls/hr Q20H IV 10/02/19 17:30 10/30/19 19:29 10/02/19 18:37 Tamsulosin HCl (Flomax) 0.4 mg BEDTIME ORAL 10/02/19 21:00 10/30/19 20:59 10/02/19 20:20 Assessment/Plan Assessment/Plan ASSESSMENT Syncopal episode possibly due to dehydration, also + orthostatic changes Acute on chronic hepatic encephalopathy Altered mental status due to hepatic encephalopathy Shortness of breath Acute renal failure Electrolyte abnormalities Hyperglycemia without DKA DM OOG Questionable hx of Liver cancer Cirrhosis Pancytopenia Hx of HTN PLAN OF CARE MS floor O2 prn titrate to keep sat above 90%, CXR noted, stable add a/tussive prn Venous Duplex BLE. unable to start Heparin/Lovenox due to low PLT count, if Venous negative, will start on SCD monitor BP , Hydralazine prn for BP spikes repeated troponin NGT, ECG no acute ischemic changes, ruled out for acute KS tele-SR with some PVC CT head NGT carotid Duplex < 50% stenosis orthostatic VS -> positive for orthostatic changes get PT eval and Rx Lactulose increased to 30 tid and add Rifaximin, ammonia down to 67 AFP 2.6 continue IVF, creat trending down-1.5; correct lytes as needed f/up with nephro recs GI prophylaxis abd US -> SP, cirrhosis, small ascites BS management with Levemir, dose increased to bid, add short acting premeal Novolog and change SS to moderate from sensitive HgA1c -12.1 not at goal diabetic diet supportive care dc today Fup with PMD in 1 wk, need tighter BS l control case discussed and evaluated by supervising physician Nasir Hayes MD 10/03/19 1518: Subjective Allergies: Coded Allergies: No Known Allergies (Unverified , 09/30/19) Assessment/Plan Assessment/Plan Patient seen and examined with CUSTOMER ACCOUNT SPECIALIST. Agree with above A&P as it reflects our joint deliberations. Aliya Squires CUSTOMER ACCOUNT SPECIALIST Oct 03, 2019 13:00 Nasir Hayes MD Oct 03, 2019 15:18
--- NOTE | 2019-10-03 13:34 | Surgery Progress Note ---
Surgery Progress Note Subjective Symptoms: improved, tolerating diet, passing flatus Objective Last 24 Hour Vital Signs Date Time Temp Pulse Resp B/P (MAP) Pulse Ox O2 Delivery O2 Flow Rate FiO2 10/03/19 12:00 97.9 89 20 128/84 (99) 97 10/03/19 09:00 70 76 89 10/03/19 09:00 Room Air 10/03/19 08:00 98.1 92 20 120/78 (92) 98 10/03/19 04:00 97.9 98 18 111/77 (88) 98 10/03/19 00:00 97.1 100 18 115/79 (91) 98 10/02/19 21:50 77 76 89 10/02/19 21:49 Room Air 10/02/19 20:00 98.2 86 19 139/87 (104) 99 10/02/19 16:00 97.5 88 18 146/89 (108) 100 10/02/19 15:35 90 I&O Intake and Output 10/02/19 10/03/19 19:00 07:00 Intake Total 1110 ml Balance 1110 ml Intake Oral 360 ml IV Total 750 ml # Voids 2 2 # Bowel Movements 2 Dressing: dry Wound: clean Cardiovascular: RSR Respiratory: clear, decreased breath sounds Abdomen: soft, non-tender, present bowel sounds Extremities: no cyanosis, other Laboratory Tests Test 10/03/19 05:40 White Blood Count 5.1 K/UL (4.8-10.8) Red Blood Count 3.95 M/UL (4.70-6.10) L Hemoglobin 11.8 G/DL (14.2-18.0) L Hematocrit 36.7 % (42.0-52.0) L Mean Corpuscular Volume 93 FL (80-99) Mean Corpuscular Hemoglobin 29.9 PG (27.0-31.0) Mean Corpuscular Hemoglobin Concent 32.3 G/DL (32.0-36.0) Red Cell Distribution Width 14.6 % (11.6-14.8) Platelet Count 76 K/UL (150-450) L Mean Platelet Volume 10.3 FL (6.5-10.1) H Neutrophils (%) (Auto) % (45.0-75.0) Lymphocytes (%) (Auto) % (20.0-45.0) Monocytes (%) (Auto) % (1.0-10.0) Eosinophils (%) (Auto) % (0.0-3.0) Basophils (%) (Auto) % (0.0-2.0) Differential Total Cells Counted 100 Neutrophils % (Manual) 70 % (45-75) Lymphocytes % (Manual) 27 % (20-45) Monocytes % (Manual) 2 % (1-10) Eosinophils % (Manual) 1 % (0-3) Basophils % (Manual) 0 % (0-2) Band Neutrophils 0 % (0-8) Platelet Estimate Decreased L Platelet Morphology Normal Anisocytosis 1+ Sodium Level 135 MMOL/L (136-145) L Potassium Level 4.1 MMOL/L (3.5-5.1) Chloride Level 102 MMOL/L (98-107) Carbon Dioxide Level 21 MMOL/L (21-32) Anion Gap 12 mmol/L (5-15) Blood Urea Nitrogen 21 mg/dL (7-18) H Creatinine 1.4 MG/DL (0.55-1.30) H Estimat Glomerular Filtration Rate 52.2 mL/min (>60) Glucose Level 220 MG/DL (74-106) #H Calcium Level 8.7 MG/DL (8.5-10.1) Phosphorus Level 3.1 MG/DL (2.5-4.9) Magnesium Level 1.8 MG/DL (1.8-2.4) Total Bilirubin 1.4 MG/DL (0.2-1.0) H Direct Bilirubin 0.5 MG/DL (0.0-0.3) H Aspartate Amino Transf (AST/SGOT) 49 U/L (15-37) H Alanine Aminotransferase (ALT/SGPT) 49 U/L (12-78) Alkaline Phosphatase 256 U/L (46-116) H Total Protein 7.7 G/DL (6.4-8.2) Albumin 2.9 G/DL (3.4-5.0) L Globulin 4.8 g/dL Plan Problems: (1) Abnormal LFTs Assessment & Plan: 59-year-old male syncopal episode currently admitted identified to have abnormal alkaline phosphatase is significantly elevated. Ultrasound reviewed exam reviewed patient distended fluid. As per patient history liver cancer but states he was told it is too small and did not need chemotherapy. Has been following up outpatient with his physicians. No acute surgical intervention recommended at this time. Patient known history and prior follow-up and work-up outpatient has been done Do not recommend repeating this at this time Hepatic stable improving Okay to DC from surgical standpoint Thank you for let me participate in patient's care no acute surgical invention necessary at this time (2) History of liver cancer Assessment & Plan: Liver: The liver surface is nodular. Liver is mildly heterogeneous. Gallbladder: The gallbladder is normal. No stones are visualized. The wall is not thickened. Common bile duct: Normal in size. Pancreas: The visualized portion of pancreas is normal in echogenicity. There are no masses. Kidneys: The kidneys are normal in size and echogenicity. There is no hydronephrosis. Spleen: Enlarged measuring 13.6 cm. Aorta: The visualized portion of the aorta is normal in caliber. The proximal aorta is obscured. IVC: The demonstrated portion of the inferior vena cava is normal. There is a small amount of ascites. Impression: Cirrhosis. Splenomegaly. Small amount of ascites. Michael Danielle Oct 03, 2019 13:34
[2019-10-03] MEDS ORDERED: PANTOPRAZOLE SO40 MG ORAL (14:01)
[2019-10-03] MEDS ORDERED: LEVEMIR FL100 UNIT/1 SUBQ (14:01)
--- NOTE | 2019-10-03 14:05 | Cardiac Electrophysiology PN ---
Assessment/Plan Assessment/Plan 1. Syncope. The etiology is not clear at this time. Remained in sinus rhythm. His EKG showed normal sinus rhythm, normal electrocardiogram. Echo showed ejection fraction of 60%. Was only mildly orthostatic. CT of the brain was negative and syncope could be due todehydration. 2. Hypertension, on p.r.n. hydralazine. 3. Diabetes, on insulin. 4. Hyperlipidemia, on Lipitor. 6. Acute renal failure. Further evaluation by Dr. Carrero. 7. Questionable liver cancer ammonia and PT and INR. Subjective Subjective In SR in NAD. No CP or SOB. Now off tele Objective Last 24 Hour Vital Signs Date Time Temp Pulse Resp B/P (MAP) Pulse Ox O2 Delivery O2 Flow Rate FiO2 10/03/19 12:00 97.9 89 20 128/84 (99) 97 10/03/19 09:00 70 76 89 10/03/19 09:00 Room Air 10/03/19 08:00 98.1 92 20 120/78 (92) 98 10/03/19 04:00 97.9 98 18 111/77 (88) 98 10/03/19 00:00 97.1 100 18 115/79 (91) 98 10/02/19 21:50 77 76 89 10/02/19 21:49 Room Air 10/02/19 20:00 98.2 86 19 139/87 (104) 99 10/02/19 16:00 97.5 88 18 146/89 (108) 100 10/02/19 15:35 90 Intake and Output 10/02/19 10/03/19 19:00 07:00 Intake Total 1110 ml Balance 1110 ml Intake Oral 360 ml IV Total 750 ml # Voids 2 2 # Bowel Movements 2 Laboratory Tests Test 10/03/19 05:40 White Blood Count 5.1 K/UL (4.8-10.8) Red Blood Count 3.95 M/UL (4.70-6.10) L Hemoglobin 11.8 G/DL (14.2-18.0) L Hematocrit 36.7 % (42.0-52.0) L Mean Corpuscular Volume 93 FL (80-99) Mean Corpuscular Hemoglobin 29.9 PG (27.0-31.0) Mean Corpuscular Hemoglobin Concent 32.3 G/DL (32.0-36.0) Red Cell Distribution Width 14.6 % (11.6-14.8) Platelet Count 76 K/UL (150-450) L Mean Platelet Volume 10.3 FL (6.5-10.1) H Neutrophils (%) (Auto) % (45.0-75.0) Lymphocytes (%) (Auto) % (20.0-45.0) Monocytes (%) (Auto) % (1.0-10.0) Eosinophils (%) (Auto) % (0.0-3.0) Basophils (%) (Auto) % (0.0-2.0) Differential Total Cells Counted 100 Neutrophils % (Manual) 70 % (45-75) Lymphocytes % (Manual) 27 % (20-45) Monocytes % (Manual) 2 % (1-10) Eosinophils % (Manual) 1 % (0-3) Basophils % (Manual) 0 % (0-2) Band Neutrophils 0 % (0-8) Platelet Estimate Decreased L Platelet Morphology Normal Anisocytosis 1+ Sodium Level 135 MMOL/L (136-145) L Potassium Level 4.1 MMOL/L (3.5-5.1) Chloride Level 102 MMOL/L (98-107) Carbon Dioxide Level 21 MMOL/L (21-32) Anion Gap 12 mmol/L (5-15) Blood Urea Nitrogen 21 mg/dL (7-18) H Creatinine 1.4 MG/DL (0.55-1.30) H Estimat Glomerular Filtration Rate 52.2 mL/min (>60) Glucose Level 220 MG/DL (74-106) #H Calcium Level 8.7 MG/DL (8.5-10.1) Phosphorus Level 3.1 MG/DL (2.5-4.9) Magnesium Level 1.8 MG/DL (1.8-2.4) Total Bilirubin 1.4 MG/DL (0.2-1.0) H Direct Bilirubin 0.5 MG/DL (0.0-0.3) H Aspartate Amino Transf (AST/SGOT) 49 U/L (15-37) H Alanine Aminotransferase (ALT/SGPT) 49 U/L (12-78) Alkaline Phosphatase 256 U/L (46-116) H Total Protein 7.7 G/DL (6.4-8.2) Albumin 2.9 G/DL (3.4-5.0) L Globulin 4.8 g/dL Objective HEAD AND NECK: No JVD. LUNGS: Clear. CARDIOVASCULAR: Regular S1 and S2 with no gallop or murmur. ABDOMEN: Soft. EXTREMITIES: No pitting edema. Paul Dexter MD Oct 03, 2019 14:05
--- NOTE | 2019-10-03 14:23 | Discharge Instructions ---
Discharge Instructions Discharge Instructions Special Instructions It is very important you take your insulin as scheduled. Check your blood sugar before meals. Please f/u with your outpatient oncologist as instructed For Congestive Heart Failure Reminder Report to your physician any weight gain of 5 pounds or more in one week. Sheryl Mireles D.O. Oct 03, 2019 14:23
[2019-10-03] MEDS ORDERED: LACTULOSE20 GM/301 ORAL (14:25)
[2019-10-03] MEDS ORDERED: FLOMAX0.4 MG ORAL (14:25)
[2019-10-03] MEDS ORDERED: LIPITOR20 MG ORAL (14:25)
[2019-10-03] MEDS ORDERED: NOVOLOG100 UNITS1 SUBQ (14:25)
--- NOTE | 2019-10-03 16:42 | NUR ---
NURSE NOTES: Patient was discharged at 1630, all belongings sent with patient. Pt signed all DC paper works including inventory. He was educated regarding medications, reportable conditions and ff up appointments with MD and he verbalized understanding. IV line and ID band removed. No c/o any pain or discomfort upon DC. Sophie signs were WNL, patient was accompanied by nurse downstairs and was picked up by Rashmi at around 1630. Addendum: 10/03/19 at 1728 by Noelle Downing RN Patient noted to be missing a pair of pants, as per Rashmi, the , patient has an insurance card inside the said pants but it was not listed in the inventory, nurses looked for pants inside room but unable to be located, asked the patient and if they needed a replacement for the missing pants and they refused stated "no, no its okay we dont need it"
[2019-10-03] MEDS ORDERED: Levemir Flexpen SUBQ SCH ×4 (18:00)
--- NOTE | 2019-10-09 10:03 | Discharge Summary ---
Discharge Summary Discharge Summary _ DATE OF ADMISSION: 09/30/2019 DATE OF DISCHARGE: 10/03/2019 DISCHARGED BY: Dr. Mireles REASON FOR ADMISSION: 59 years old male with past medical history of hypertension, diabetes mellitus, vague history of liver cancer, presented after syncopal episode. Family reported , that the patient was altered . Patient also reported shortness of breath. EKG in the field showed no acute injury. Family reported prior episodes similar to this in the past . Upon evaluation patient was afebrile , saturating well on room air. Blood pressure was 146/84. Laboratory work-up revealed WBC 4.8, hemoglobin 11.6, hematocrit 36.5. Platelet count 81. Sodium 129, potassium 5.7. BUN 44, creatinine 2.3. Glucose 543. Anion gap 9. AST 48 , ALT 51 . Alkaline phosphatase 51. Ammonia level 94. Troponin 0.005 , pro-BNP 305. EKG revealed normal sinus rhythm, no acute ischemic changes Urinalysis revealed +4 glucose ,+1 leukocyte esterase , borderline pyuria and few bacteria. Chest x-ray revealed left basilar scaring versus subsegmental atelectasis, otherwise no acute cardiopulmonary disease. CT of the head revealed no acute intracranial abnormality. Partially visualized complete opacification of the left maxillary sinuses . In emergency department patient received IV fluids. Hyperkalemia was treated. Patient was admitted for further management CONSULTANTS: contract accountant Dr. Griffin pulmonary Dr. Hayes section supervisor Dr. Carrero surgery Dr. Danielle [facility] COURSE: Patient admitted to telemetry floor . Patient provided with IV hydration. Supplemental oxygen provided and titrated to keep pulse oximetry above 90%. Chest x-ray revealed left basilar scaring versus subsegmental atelectasis , otherwise no acute cardiopulmonary disease. Venous duplex bilateral lower extremity revealed no evidence of acute DVT. Unable to start anticoagulation for DVT prophylaxis with Heparin or Lovenox due to low platelet count. Patient started on mechanical prophylaxis of DVT with SCD. Blood pressure was closely monitored. Hydralazine was on board as needed for blood pressure spikes. Serial troponin negative. EKG revealed normal sinus rhythm. Echocardiogram revealed preserved ejection fraction of 60%. Mild orthostatic blood pressure changes noted. Carotid duplex revealed less than 50% of stenosis. CT of the head was negative for intracranial pathology. Statin continued. Syncope was possibly due to dehydration and mild orthostatic blood pressure changes. Due to elevated ammonia , patient started on lactulose . Lactulose dose was increased , and rifaximin added to the regimen. Ammonia level was trending down. Alpha-fetoprotein within normal limits-2.6. GI prophylaxis provided. Abdominal ultrasound revealed cirrhosis,splenomegaly, small amount of ascites. Renal parameters and electrolytes were closely monitored , electrolytes corrected as needed. Creatinine down to 1.4. Per section supervisor, renal failure was most likely acute, superimposed on chronic. Blood sugar was managed with Levemir, dose increased to twice daily, short acting pre-meal NovoLog was started. Sliding scale of insulin was provided as needed. Hemoglobin A1c 12.1 , clearly not at goal. Diabetic diet and diabetic teaching provided , when patient became more alert. Patient will need close monitoring of blood sugar as outpatient. Counts were closely monitored. Hemoglobin , hematocrit and platelet count remained at baseline. Mental status improved, as ammonia was trending down. Fall precautions maintained. Patient was working with physical therapist. General surgeon seen and evaluated patient for abnormal LFT and vague history of liver cancer. Patient was told, that liver cancer was too small and he did not need chemotherapy. Patient follow-up as outpatient with his physician. No acute surgical intervention was recommended at this time. LFT were closely monitored : ALT remained stable, AST with small elevation. Ammonia down to 67 from initial 94 . Blood pressure stable. Patient was clinically stabilized and was ready for discharge home. FINAL DIAGNOSES: Syncopal episode, probably due to dehydration , also positive orthostatic changes Acute on chronic hepatic encephalopathy Altered mental status due to hepatic encephalopathy Acute renal failure , probably superimposed on chronic kidney disease Electrolyte abnormality Hyperglycemia without DKA Diabetes mellitus [id number] Vague history of liver cancer Cirrhosis Pancytopenia History of hypertension Shortness of breath DISCHARGE MEDICATIONS: See Medication Reconciliation list. DISCHARGE INSTRUCTIONS: Patient was discharged home. Follow-up with a primary care provider in 1 week. Aliya Squires NP Oct 09, 2019 10:03
--- NOTE | 2019-10-12 02:04 | Discharge Summary ---
Discharge Summary Hospital Course Date of Admission Sep 30, 2019 at 18:21 Date of Discharge Oct 03, 2019 at 17:00 Admitting Diagnosis syncope/hyperglycemia HPI Philip Rubi is a 59 year old male who was admitted on Sep 30, 2019 at 18:21 for Syncope/Hyperglycemia Hospital Course Assessment #Syncope; CT brain negative, and to be secondary to dehydration as echocardiogram, EKG, carotid ultrasound all have a within normal limits work- up. 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 #Opacified Sinus; presently not concerned for aggressive or invasive infection #HLD Plan Consult to Nephro and GI Syncope 2/2 Dehydration Renal ultrasound noted with nodular liver Gentle IVF @ 50 cc/hr, Wang Cath, kidneys normal on ultrasound Weight based insulin dosing, goal blood sugar less than 180 while inpatient, adjust prn--> hold Judson-Inhibitor for now given renal function Lactulose TIID+ Rifaximin, no signs of developing encephalopathy Obtain and reconcile home medications Initiate Statin, monitor liver enzymes GI ppx; Avoid chemical DVT at this time 2/2 thrombocytopenia Diet as tolerated 10/01: Obtain records from outside facility; PT eval. Med surg downgrade. DC planning w/ HH. 10/02: Adjust insulin, likely d/c . Await records Sheryl Mireles D.O. Oct 03, 2019 11:40 Discharge Discharge Vital Signs Last Vital Signs Date Time Temp Pulse Resp B/P (MAP) Pulse Ox O2 Delivery O2 Flow Rate FiO2 10/03/19 12:00 97.9 89 20 128/84 (99) 97 10/03/19 09:00 Room Air Discharge Disposition Patient was discharged to Sheryl Mireles D.O. Oct 12, 2019 02:04
== END 2019-10-03 17:00 | disposition home or self-care (01) | DRG 279 ==
LOC: EDBD 17:06 → EMR 18:00 → EDBEDREQ 18:02 → MERGE 18:21 → 2E 18:21 → EDBEDREQ 18:42 → 4E 10-02 17:48
DX: K72.00 Acute and subacute hepatic failure without coma (principal); E86.0 Dehydration; N17.9 Acute kidney failure, unspecified; D61.818 Other pancytopenia; E11.65 Type 2 diabetes mellitus with hyperglycemia; E11.21 Type 2 diabetes mellitus with diabetic nephropathy; D68.8 Other specified coagulation defects; N18.9 Chronic kidney disease, unspecified; E87.5 Hyperkalemia; E87.1 Hypo-osmolality and hyponatremia; Z85.05 Personal history of malignant neoplasm of liver; I12.9 Hypertensive chronic kidney disease with stage 1 through stage 4 chronic kidney disease, or unspecified chronic kidney disease; E11.22 Type 2 diabetes mellitus with diabetic chronic kidney disease; K72.10 Chronic hepatic failure without coma; E78.5 Hyperlipidemia, unspecified; K74.60 Unspecified cirrhosis of liver; R06.02 Shortness of breath
CPT/HCPCS: 36415; 70450; 71045; 76700; 80053; 80061; 81003; 82105; 82140; 82248; 82550; 82607; 82728; 82746; 82962; 82977; 83036; 83540; 83550; 83690; 83735; 83880; 84100; 84443; 84484; 84550; 85007; 85025; 85610; 85730; 86140; 93005; 93306; 93880; 93970; 96361; 96374; 99285; G0480; J1815; J7030

== ENCOUNTER 2020-02-14 13:07 | Emergency (ER) | payer MEDICAID, OTHER ==
[~2020-02-14] VITALS: Ht 167.6 cm; Wt 74.8 kg
[~2020-02-14 13:07] MED LIST changes: +LACTULOSE20 GM/301 ORAL; +LIPITOR20 MG ORAL; +NOVOLOG100 UNITS1 SUBQ
--- NOTE | 2020-02-14 13:56 | Emergency Room Report ---
History of Present Illness General Chief Complaint: Syncope Source: Patient Present Illness HPI 59-year-old male with history of diabetes, hypertension, liver cancer presents status post syncopal episode. He reports he was urinating when he fell and hit his head and passed out. He denies any head pain, chest pain, vomiting, any other symptoms. He reports he still feels dizzy like he might pass out. He repo rts he has passed out 3 times in the past. Denies past PR or other cardiac history. Allergies: Coded Allergies: No Known Allergies (Unverified , 09/08/19) COVID-19 Screening Contact w/high risk pt: No Recent Travel to affected area: No Experienced COVID-19 symptoms?: No COVID-19 Testing performed HAMMER DRIVER: No Patient History Past Medical History: see triage record Reviewed Nursing Documentation: PMH: Agreed; PSxH: Agreed Nursing Documentation-PMH Past Medical History: No History, Except For Hx Hypertension: Yes Hx Diabetes: Yes Hx Cancer: Yes Hx Gastrointestinal Problems: No Hx Neurological Problems: No Review of Systems All Other Systems: negative except mentioned in HPI Physical Exam Vital Signs Date Time Temp Pulse Resp B/P (MAP) Pulse Ox O2 Delivery O2 Flow Rate FiO2 02/14/20 13:05 98.8 65 18 130/70 (90) 98 Room Air Sp02 EP Interpretation: reviewed, normal General Appearance: normal inspection, well appearing, no apparent distress, alert, GCS 15, non-toxic ENT: normal ENT inspection, EOM grossly intact, normal voice, other - No nasal drainage. Neck: normal inspection, full range of motion, supple, thyroid normal, no meningismus, no bony tend Respiratory: chest non-tender, lungs clear, normal breath sounds, no respiratory distress Cardiovascular #1: normal peripheral pulses, regular rate, rhythm Musculoskeletal: normal inspection, normal range of motion, gait/station normal, non-tender Neurologic: alert, motor strength/tone normal, mortgage processing clerk III-XII nml as tested, oriented x3, sensory intact, speech normal Psychiatric: judgement/insight normal, mood/affect normal Skin: no rash, normal color, warm/dry Lymphatic: no adenopathy Medical Decision Making PA Attestation Dr. Lopez is my supervising physician whom patient management and care has been discussed with. Diagnostic Impression: Primary Impression: Renal failure (ARF), acute on chronic Additional Impressions: History of liver cancer Polyposis of sinonasal region Syncope Increased ammonia level ER Course Pt. presents to the ED c/o syncope. He fell and hit his head as he was urinating. Ddx considered but are not limited to micturition syncope, other vasovagal syncope, ACS/PR, PE, subarachnoid hemorrhage, arrhythmia, hepatic encephalopathy, metastasis. Vital signs: are WNL, pt. is afebrile, normotensive H&PE are most consistent with syncope, renal insufficiency, elevated ammonia ORDERS: Cardiac work-up reveals EKG with NSR and no ST-T changes, negative troponin, normal CXR. Kidney function tests significantly elevated since last visit a few months ago. Ammonia elevated at 63. CT head shows no intracranial hemorrhage but there is expansile tissue filling the left maxillary sinus and extending into the ethmoid air cells. Likely represents inflammatory polyposis but there is a possibility of fungal sinusitis and neoplasm. Size has grown since last CT in August 2019. Patient does have a history of liver cancer so cannot rule out metastasis. ED INTERVENTIONS: Patient given 1 L IV NS and PO Lactulose for slightly elevated ammonia. DISPOSITION: Patient requires admission for further evaluation of syncope and lab and CT findings. Patient is capitated to [facility]. My supervising physician, Dr. Shaver, spoke to Dr. Aldo Gerber from [facility] who is accepting the patient for transfer. Laboratory Tests Test 02/14/20 14:17 02/14/20 14:59 White Blood Count 5.1 K/UL (4.8-10.8) Red Blood Count 4.12 M/UL (4.70-6.10) L Hemoglobin 11.5 G/DL (14.2-18.0) L Hematocrit 35.3 % (42.0-52.0) L Mean Corpuscular Volume 86 FL (80-99) Mean Corpuscular Hemoglobin 27.8 PG (27.0-31.0) Mean Corpuscular Hemoglobin Concent 32.5 G/DL (32.0-36.0) Red Cell Distribution Width 15.3 % (11.6-14.8) H Platelet Count 85 K/UL (150-450) L Mean Platelet Volume 9.4 FL (6.5-10.1) Neutrophils (%) (Auto) % (45.0-75.0) Lymphocytes (%) (Auto) % (20.0-45.0) Monocytes (%) (Auto) % (1.0-10.0) Eosinophils (%) (Auto) % (0.0-3.0) Basophils (%) (Auto) % (0.0-2.0) Differential Total Cells Counted 100 Neutrophils % (Manual) 70 % (45-75) Lymphocytes % (Manual) 20 % (20-45) Monocytes % (Manual) 8 % (1-10) Eosinophils % (Manual) 2 % (0-3) Basophils % (Manual) 0 % (0-2) Band Neutrophils 0 % (0-8) Platelet Estimate Decreased L Platelet Morphology Normal Hypochromasia 1+ Sodium Level 139 MMOL/L (136-145) Potassium Level 4.4 MMOL/L (3.5-5.1) Chloride Level 103 MMOL/L (98-107) Carbon Dioxide Level 28 MMOL/L (21-32) Anion Gap 8 mmol/L (5-15) Blood Urea Nitrogen 53 mg/dL (7-18) H Creatinine 2.5 MG/DL (0.55-1.30) H Estimated Glomerular Filtration Rate 26.8 mL/min (>60) Glucose Level 201 MG/DL (74-106) H Calcium Level 9.4 MG/DL (8.5-10.1) Total Bilirubin 0.9 MG/DL (0.2-1.0) Aspartate Amino Transferase (AST) 43 U/L (15-37) H Alanine Aminotransferase (ALT) 38 U/L (12-78) Alkaline Phosphatase 272 U/L (46-116) H Troponin I 0.016 ng/mL (0.000-0.056) Total Protein 7.6 G/DL (6.4-8.2) Albumin 3.3 G/DL (3.4-5.0) L Globulin 4.3 g/dL Albumin/Globulin Ratio 0.8 (1.0-2.7) L Ammonia 63 umol/L (11-32) H EKG Diagnostic Results Troponin ordered: Yes Rate: normal Rhythm: NSR ST Segments: no acute changes PA Scribe Text This EKG was scribed by Isabel Hurtado PA-C. Chest X-Ray Diagnostic Results Chest X-Ray Diagnostic Results : Chest X-Ray Ordered: Yes # of Views/Limited/Complete: 1 View Indication: Other EP Interpretation: Yes PA Xray: Interpretation reviewed, by supervising MD, and agrees with findings. Interpretation: no acute cardiopulmonary disease Impression: No acute disease CT/MRI/US Diagnostic Results CT/MRI/US Diagnostic Results : Imaging Test Ordered: Head CT non contrast Impression Expansile tissue filling the left maxillary sinus and extending into the ethmoid air cells. This most likely represents inflammatory polyposis. However, given the areas of high attenuation, the possibility of fungal sinusitis should be considered. Neoplasm less likely but possible. Recommend ENT consultation. Negative for acute intracranial bleed or mass-effect. 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 Last Vital Signs Date Time Temp Pulse Resp B/P (MAP) Pulse Ox O2 Delivery O2 Flow Rate FiO2 02/14/20 13:05 98.8 65 18 130/70 (90) 98 Room Air Disposition: SHORT-TERM HOSP Condition: Stable Isabel Hurtado Feb 14, 2020 13:56
[2020-02-14 14:24] VITALS: BP 130/70
--- NOTE | 2020-02-14 14:26 | Diagnostic Imaging Report ---
Indications: Syncope Technique: Spiral acquisitions obtained through the brain. Angled axial and coronal 5 x 5 mm slices were reconstructed. Total dose length product 1098 mGycm. CTDI vol(s) 53 mGy. Dose reduction achieved using automated exposure control Comparison: None. Findings: Abnormal mixed attenuation, high attenuation, tissue fills and expands the left maxillary sinus. This also extends into the central left ethmoid air cells. The remaining sinuses are clear. There is a small old cortical infarct in the right posterior temporal lobe. No acute intracranial hemorrhage or edema. No mass effect nor midline shift. Small old lacunar infarct is seen in the left basal ganglia. Otherwise normal davis-white differentiation. Visualized orbits are unremarkable. The calvarium is intact. Impression: Expansile tissue filling the left maxillary sinus and extending into the ethmoid air cells. This most likely represents inflammatory polyposis. However, given the areas of high attenuation, the possibility of fungal sinusitis should be considered. Neoplasm less likely but possible. Recommend ENT consultation. Negative for acute intracranial bleed or mass effect Old infarcts as described The CT scanner at [facility] is accredited by the [employer] and the scans are performed using protocols designed to limit radiation exposure to as low as reasonably achievable to attain images of sufficient resolution adequate for diagnostic evaluation.
[2020-02-14 14:51] LABS: HEMATOCRIT 35.3 % (42.0-52.0); HEMOGLOBIN 11.5 G/DL (14.2-18.0); MEAN CORPUSCULAR VOLUME 86 FL (80-99); PLATELET COUNT 85 K/UL (150-450); RED BLOOD COUNT 4.12 M/UL (4.70-6.10); RED CELL DISTRIBUTION WIDTH 15.3 % (11.6-14.8); WHITE BLOOD COUNT 5.1 K/UL (4.8-10.8)
[2020-02-14 15:07] LABS: CALCIUM 9.4 MG/DL (8.5-10.1); CREATININE 2.5 MG/DL (0.55-1.30); POTASSIUM 4.4 MMOL/L (3.5-5.1)
[2020-02-14 15:12] LABS: ALBUMIN 3.3 G/DL (3.4-5.0); ALBUMIN/GLOBULIN RATIO 0.8 (1.0-2.7); BILIRUBIN,TOTAL 0.9 MG/DL (0.2-1.0)
--- NOTE | 2020-02-14 15:43 | Diagnostic Imaging Report ---
Indication: Syncope Technique: One view of the chest Comparison: 09/08/2019 Findings: Lungs and pleural spaces are clear. The heart size is normal. The aorta is somewhat ectatic. The upper mediastinum is unremarkable. Findings are unchanged Impression: No acute process
[2020-02-14] MEDS ORDERED: Lactulose 20gm/30ml UDC ORAL ONE (17:00)
[2020-02-14 17:53] VITALS: BP 131/76
== END 2020-02-14 17:55 | disposition short-term general hospital (02) ==
LOC: EDBD 13:07 → EMR 14:28
DX: N17.9 Acute kidney failure, unspecified (principal); E11.22 Type 2 diabetes mellitus with diabetic chronic kidney disease; I12.9 Hypertensive chronic kidney disease with stage 1 through stage 4 chronic kidney disease, or unspecified chronic kidney disease; N18.9 Chronic kidney disease, unspecified; R55 Syncope and collapse; J33.8 Other polyp of sinus; R74.8 Abnormal levels of other serum enzymes; I10 Essential (primary) hypertension; Z85.05 Personal history of malignant neoplasm of liver; Z79.4 Long term (current) use of insulin
CPT/HCPCS: 36415; 70450; 71045; 80053; 82140; 84484; 85007; 85025; 93005; 96360; J7030; Z7502; 99284